=== PATIENT | male | born 1955 | race Caucasian/White ===

== ENCOUNTER 2019-01-02 19:45 | Emergency (ER) | payer OTHER ==
[~2019-01-02] VITALS: Ht 162.6 cm; Wt 79.4 kg
--- OUTSIDE RECORDS SUMMARY | ~2019-01-02 | XMS | Encounter Summary ---
Demographics + + + | Address | [address] | | | [place] [address] | + + + | Home Phone | | + + + | Preferred Language | Unknown | + + + | Marital Status | | + + + | Orthodox Affiliation | BIG | + + + | Race | White | + + + | Ethnic Group | Not or | + + + Author + + + | Author | [facility] | + + + | Organization | [facility] | + + + | Address | Unknown | + + + | Phone | Unavailable | + + + Support + + +---------+ + | Name | Relationship | Address | Phone | + + +---------+ + | Jade Cortez | ECON | Unknown | | + + +---------+ + Care Team Providers + +------+ + | Care Budder Name | Role | Phone | + +------+ + | Bonita Forbes MD | PCP | | + +------+ + Reason for Visit + + + | Reason | Comments | + + + | Visual field testing | | + + + Encounter Details +--------+ + + + + | Date | Type | Department | Care Team | Description | +--------+ + + + + | 06/28/ | Documentati | [facility] | Abel Aguilar MD | Visual field testing | | 2018 | on | [place] | [address] | | | | | Oculoplastics at | Blvd [place], [place] | | | | | [address] [place] [address] | [address] | | | | | [address] | [phone] | | | | | Mailcode: [facility] | | | | | | [place], [place] | | | | | | [address] | | | | | | [phone] | | | +--------+ + + + + Social History + +-------+ +--------+------+ | Tobacco Use | Types | Packs/Day | Years | Date | | | | | Used | | + +-------+ +--------+------+ | Current Every Day | | | | | | Smoker | | | | | + +-------+ +--------+------+ + +---+---+---+ | Smokeless Tobacco: | | | | | Never Used | | | | + +---+---+---+ + + + | Sex Assigned at | Date Recorded | | | | + + + | Not on file | | + + + + + + + | Job Start Date | Occupation | Industry | + + + + | Not on file | Not on file | Not on file | + + + + + + + + | Travel History | Travel Start | Travel End | + + + + + + | No recent travel history available. | + + documented as of this encounter Plan of Treatment Not on filedocumented as of this encounter Visit Diagnoses Not on filedocumented in this encounter"
--- OUTSIDE RECORDS SUMMARY | ~2019-01-02 | XMS | Encounter Summary ---
Demographics + + + | Address | [address] | | | [place] [address] | + + + | Home Phone | | + + + | Preferred Language | Unknown | + + + | Marital Status | | + + + | Quaker Affiliation | BIG | + + + | Race | White | + + + | Ethnic Group | Not or | + + + Author + + + | Author | [facility] | + + + | Organization | [facility] | + + + | Address | Unknown | + + + | Phone | Unavailable | + + + Support + + +---------+ + | Name | Relationship | Address | Phone | + + +---------+ + | Jade Cortez | ECON | Unknown | | + + +---------+ + Care Team Providers + +------+ + | Care Safety Coordinator Name | Role | Phone | + +------+ + | Bonita Forbes MD | PCP | | + +------+ + Encounter Details +--------+ + + + + | Date | Type | Department | Care Team | Description | +--------+ + + + + | 07/21/ | Telephone | [facility] | Abel Aguilar MD | | | 2018 | | [place] | [address] | | | | | Oculoplastics at | Blvd [place], [place] | | | | | [address] [facility] | [address] | | | | | [address] | [phone] | | | | | Mailcode: [facility] | | | | | | [place], [place] | | | | | | [address] | | | | | | [phone] | | | +--------+ + + + [...]
--- OUTSIDE RECORDS SUMMARY | ~2019-01-02 | XMS | Encounter Summary ---
Demographics + + + | Address | [address] | | | [place] [address] | + + + | Home Phone | | + + + | Preferred Language | Unknown | + + + | Marital Status | | + + + | Worship Affiliation | BIG | + + + [...] Team Providers + +------+ + | Care Technical Support Director Name | Role | Phone | + +------+ + | Bonita Forbes MD | PCP | | + +------+ + Encounter Details +--------+ + + + + | Date | Type | Department | Care Team | Description | +--------+ + + + + | 07/21/ | Telephone | [facility] | Abel Aguilar MD | | | 2018 | | [place] | [address] | | | | | Oculoplastics at | Blvd [place], [place] | | | | | [address] [facility] | [address] | | | | | [address] | [phone] | | | | | Mailcode: [facility] | | | | | | [place], [place] | | | | | | [address] | | | | | | [phone] | | | +--------+ + + + [...]
--- OUTSIDE RECORDS SUMMARY | ~2019-01-02 | XMS | Encounter Summary ---
Demographics + + + | Address | [address] | | | [place] [address] | + + + | Home Phone | | + + + | Preferred Language | Unknown | + + + | Marital Status | | + + + | Rastafari Affiliation | BIG | + + + | Race | White | + + + | Ethnic Group | Not or | + + + Author + + + | Author | [facility] | + + + | Organization | [facility] | + + + | Address | Unknown | + + + | Phone | Unavailable | + + + Support + + +---------+ + | Name | Relationship | Address | Phone | + + +---------+ + | Jade Cortez | ECON | Unknown | | + + +---------+ + Care Team Providers + +------+ + | Care Etcher Hand Name | Role | Phone | + +------+ + | Bonita Forbes MD | PCP | | + +------+ + Reason for Visit Office Visit - E/M Services (Routine) +--------+--------+ + + + + | Status | Reason | Specialty | Diagnoses / | Referred By | Referred To | | | | | Procedures | Contact | Contact | +--------+--------+ + + + + | Closed | | Ophthalmology | | Non-[facility] | Jeff, | | | | | | Epic Dept | MD Abel | | | | | | | [address] | | | | | | | [address] | | | | | | | [place] | | | | | | | [facility] [place] | | | | | | | [address] | | | | | | | Phone: | | | | | | | [phone] | | | | | | | Fax: | | | | | | | [phone] | +--------+--------+ + + + + Encounter Details +--------+---------+ + + + | Date | Type | Department | Care Team | Description | +--------+---------+ + + + | 06/17/ | Office | [facility] | Abel Aguilar MD | Brow ptosis (Primary | | 2018 | Visit | [place] | [address] | Dx); | | | | Oculoplastics at | [place], [place] | Dermatochalasis of | | | | [place] [address] | [address] | both upper eyelids | | | | [address] | [phone] | | | | | Mailcode: [facility] | | | | | | [facility] [place] | | | | | | [address] | | | | | | [phone] | | | +--------+---------+ + + + [...] documented as of this encounter Progress Notes Bonnie Paz - 06/17/2017 1:20 PM PDT07/19/17 [facility] Bilateral direct brow lift (tempora l) MAC Bilateral upper lid blepharoplasty Needs consent Gave LTP H&P w/ PCP Pt to bring CPAP on day of surgery bel Aguilar MD - 06/17/2017 1:20 PM PDTFormatting of this note might be differ ent from the original. Suman Cortez Fran is a 61 y.o. male. Referred by: Savage Burciaga Pain: No pain (0 of 0-10) Patient is referred for brow ptosis and dermatochalasis. He says he has progressively droop y eyelids that interfere with vision. This is bothersome all the time, interferes with the p eripheral vision, especially notices it when reading and driving, very bothersome. He had bi lateral upper lid blepharoplasty and ptosis repair in 2013 and felt like it was somewhat hel pful, but still bothered by his heavy upper lids. He notes he can see much better if he manu ally holds the saggy skin up. +PTSD, feels startled when things come up on his sides Denies myasthenia gravis symptoms, no current thyroid [...] patient is alert and oriented x 3. Visual Acuity: Vacc PH RE LE 20/25 20/25 Pupil Exam: PERRL No APD Motility: RE [...] skin resting on lashes and mechanical ptosis Adenopathy: None SLE: C/S quiet without masses OU K clear without infiltrate OU AC Deep and quiet OU Iris without neovascularization OU Lens NS OU Ta 15 OD 16 OS Posterior segment: M&N OU @ 13:20 Vitreous: clear, both eyes. Fundus: Optic disc: 0.3 cup/disc ratio, pink, flat, both eyes. Macula: no edema or exudates, both eyes. Vessels: no notching or hemorrhage, both eyes. Periphery: flat 360 without breaks or tears, both eyes. Basal Tear Secretion Test: RE 21, LE 21 External photos taken OU today. Photos demonstrate bilateral brow ptosis, upper lid dermat ochalasis Impression: 1. Bilateral brow ptosis, upper lid dermatochalasis, visually significant 2. S/p bilateral upper lid blepharoplasty and ptosis repair 2013 ([place]) Plan: Extensive discussion of options, patient wishes [...] I have reviewed and edited history and lead quality control technician documentation, and performed all elements to above examination documentation. Abel Aguilar M.D. Tissue Specialist Ophthalmic Facial Plastic and Reconstructive Surgery documented in this encounter Plan of Treatment Not on filedocumented as of this encounter Procedures + +--------+ + + + | Procedure Name | Priori | Date/Time | Associated Diagnosis | Comments | | | ty | | | | + +--------+ + + + | DE EXTERNAL PHOTOS | Routin | 06/17/2017 | Brow ptosis | | | | e | 1:57 PM | Dermatochalasis of | | | | | PDT | both upper eyelids | | + +--------+ + + + documented in this encounter Visit Diagnoses + + | Diagnosis | + + | Brow ptosis - Primary Unspecified ptosis of eyelid | + + | Dermatochalasis of both upper eyelids | + + documented in this encounter"
--- OUTSIDE RECORDS SUMMARY | ~2019-01-02 | XMS | Encounter Summary ---
Demographics + + + | Address | [address] | | | [place] [address] | + + + | Home Phone | | + + + | Preferred Language | Unknown | + + + | Marital Status | | + + + | Islam Affiliation | BIG | + + + | Race | White | + + + | Ethnic Group | Not or | + + + Author + + + | Author | [facility] | + + + | Organization | [facility] | + + + | Address | Unknown | + + + | Phone | Unavailable | + + + Support + + +---------+ + | Name | Relationship | Address | Phone | + + +---------+ + | Jade Cortez | ECON | Unknown | | + + +---------+ + Care Team Providers + +------+ + | Care Insurance Claims Clerk Name | Role | Phone | + +------+ + | Bonita Forbes MD | PCP | | + +------+ + Encounter Details +--------+---------+ + + + | Date | Type | Department | Care Team | Description | +--------+---------+ + + + | 06/28/ | Office | [facility] | Abel Aguilar MD | Dermatochalasis of | | 2018 | Visit | [place] | [address] | both upper eyelids | | | | Oculoplastics at | Blvd [facility] [place] | (Primary Dx); Brow | | | | [address] [facility] | [address] | ptosis | | | | [address] | [phone] | | | | | Mailcode: [facility] | | | | | | [place], [place] | | | | | | [address] | | | | | | [phone] | | | +--------+---------+ + + + [...] upper lid blepharoplasty and ptosis repair 2013 ([place]) Plan: Extensive discussion of options, patient wishes [...] I have reviewed and edited history and range technician documentation, and performed all elements to above examination documentation. Abel Aguilar M.D. Materials Buyer Ophthalmic Facial Plastic and Reconstructive Surgery documented in this encou nter Plan of Treatment Not on filedocumented as of this encounter Procedures + +--------+ + + + | Procedure Name | Priori | Date/Time | Associated Diagnosis | Comments | | | ty | | | | + +--------+ + + + | ME VISUAL FIELD | Routin | 06/28/2017 | [...]
--- OUTSIDE RECORDS SUMMARY | ~2019-01-02 | XMS | Clinical Summary ---
Demographics + + + | Address | [address] | | | [place] [address] | + + + | Home Phone [...] + + | Author | [facility] | + + + | Organization | [facility] | + + + | Address | Unknown | + + + | Phone | Unavailable | + + + Support + + +---------+ + | Name | Relationship | Address | Phone | + + +---------+ + | Jade Cortez | ECON | Unknown | | + + +---------+ + Care Team Providers + +------+ + | Care Template Inspector Name | Role | Phone | + +------+ + | Bonita Forbes MD | PCP | | + +------+ + Source Comments NADIA is fully live on both [facility] and [facility] Allergies No Known Allergies Medications [...] + + | Influenza (Flu) | | 12/11/2013, 03/26/2013, | | | vaccination (#1) | 9 | 01/01/2011 | | + + + + + | Pneumococcal | | 12/11/2013, 03/26/2013 | | | vaccination (3 of 3 | 9 | | | | - PPSV23) | [...] | + +--------+ +--------+ + +------+ | MARGARITA RICH PEBB | MARGARITA | [id number] | [birth year] | [phone] | [address] | PPO | | | OEBB | | 07-Pre | 7 | [id number] | | | | | | sent | | [place] | | | | | | | | [address] | | + +--------+ +--------+ + +------+ [...] | [address] | | | aislinn/Manuel | | 1956 | [phone] | [address] [place], [place] | | | [place] | | | [address] (Home) | [address] | + +--------+ +--------+ + +
--- OUTSIDE RECORDS SUMMARY | ~2019-01-02 | XMS | Encounter Summary ---
Demographics + + + | Address | [address] | | | [place] [address] | + + + | Home Phone | | + + + | Preferred Language | Unknown | + + + | Marital Status | | + + + | Uatsdin Affiliation | BIG | + + + | Race | White | + + + | Ethnic Group | Not or | + + + Author + + + | Author | [facility] | + + + | Organization | [facility] | + + + | Address | Unknown | + + + | Phone | Unavailable | + + + Support + + +---------+ + | Name | Relationship | Address | Phone | + + +---------+ + | Jade Cortez | ECON | Unknown | | + + +---------+ + Care Team Providers + +------+ + | Care Roll Forming Supervisor Name | Role | Phone | + [...] + + | 07/19/ | Hospital | [facility] | Abel Aguilar MD | | | 2018 | Encounter | [address] | [address] | | | | | [address] | Blvd [place], [place] | | | | | [facility] | [address] | | | | | [address] | [phone] | | | | | [place] [address] | | | | | | [phone] | | | +--------+ + + + [...] and holidays, call and as k the kicking machine operator to page the [facility] communications and signals supervisor. Return appointment date: Time: documented in this [...] | | 18 | 9 | | release(/EC) | | | | | | + [...] | 1 | 07/20/19 | | | [id number] | to the both eyelid | | [...] Abel Walls | | | Maxim Aguilar. Joy Loader Ophthalmic Facial Plastic and | | | [...] | | POC | | | TERRY RODRIGEUZ | | | | | | OF [...] [place] | [address] | [place], [place] | | | [facility] | [address] | [address] | | | TESTS | | | [...] intravenous, POSTPROCEDURE PRN, | | | Starting 07/19/17 at 1001, | | | Until 07/19/17 at 1628, | | | hypopnea | | + +---+ | | | + +---+ | oxyCODONE (immediate release) | | | (ROXICODONE) tablet 5-10 mg 5-10 | | | mg, oral, NEEDED, 1 dose, | | | Starting 07/19/17 at 1003, | | | Until 07/19/17 at 1628, | | | post-op severe pain | | + +---+ | | | + +---+ documented in this encounter
--- OUTSIDE RECORDS SUMMARY | ~2019-01-02 | XMS | Encounter Summary ---
Demographics + + + | Address | [address] | | | [place] [address] | + + + | Home Phone | | + + + | Preferred Language | Unknown | + + + | Marital Status | | + + + | Zoroastrianism Affiliation | BIG | + + + [...] Team Providers + +------+ + | Care Neonatal Social Worker Name | Role | Phone | + +------+ + | Bonita Forbes MD | PCP | | + +------+ + Encounter Details +--------+ + + + + | Date | Type | Department | Care Team | Description | +--------+ + + + + | 07/19/ | Procedure | [facility] INTRA OP LOC | | | | 2018 | Pass | [address] | | | | | | Mechelle ZUNIGA | | | | | | [facility], | | | | | | [place] [address] | | | +--------+ + + + [...]
--- OUTSIDE RECORDS SUMMARY | ~2019-01-02 | XMS | Encounter Summary ---
Demographics + + + | Address | [address] | | | [place] [address] | + + + | Home Phone | | + + + | Preferred Language | Unknown | + + + | Marital Status | | + + + | Hinduism Affiliation | BIG | + + + [...] Team Providers + +------+ + | Care Beauty Consultant Name | Role | Phone | [...] | | | 2018 | Event | [address] | [address] | | | | | Mechelle Vasquez [facility] | Mechelle Vasquez [place], | | | | | [facility], | [place] [address] | | | | | [place] [address] | [phone] | | | | | | | | +--------+ + + + + Anesthesia Record + + + + + | Procedure Name | Responsible | Anesthesia Start | Anesthesia Stop Time | | | Anesthesiologist | Time | | + + + + + | BILATERAL DIRECT | Yecenia MD Salvador | 07/19/17 0913 | 07/19/17 1000 | [...]
--- OUTSIDE RECORDS SUMMARY | ~2019-01-02 | XMS | Encounter Summary ---
Demographics + + + | Address | [address] | | | [place] [address] | + + + | Home Phone [...] + + | Author | [facility] | + + + | Organization | [facility] | + + + | Address | Unknown | + + + | Phone | Unavailable | + + + Support + + +---------+ + | Name | Relationship | Address | Phone | + + +---------+ + | Jade Cortez | ECON | Unknown | | + + +---------+ + Care Team Providers + +------+ + | Care Bulk Sealer Name | Role | Phone | + [...] testing | | 2018 | on | [place] | [address] | | | | | Oculoplastics at | Blvd [place], [place] | | | | | [address] | [address] | | | | | [address] | [phone] | | | | | Mailcode: [facility] | | | | | | [place], [place] | | | | | | [address] | | | | | | [phone] | | | +--------+ + + + [...]
--- OUTSIDE RECORDS SUMMARY | ~2019-01-02 | XMS | Encounter Summary ---
Demographics + + + | Address | [address] | | | [place] [address] | + + + | Home Phone | | + + + | Preferred Language | Unknown | + + + | Marital Status | | + + + | Jew Affiliation | BIG | + + + | Race | White | + + + | Ethnic Group | Not or | + + + Author + + + | Author | [facility] | + + + | Organization | [facility] | + + + | Address | Unknown | + + + | Phone | Unavailable | + + + Support + + +---------+ + | Name | Relationship | Address | Phone | + + +---------+ + | Jade Cortez | ECON | Unknown | | + + +---------+ + Care Team Providers + +------+ + | Care Cattyman Name | Role | Phone | + [...] [address] | | | | | | [place], [place] | | | | | | [address] | | | +--------+ + + + [...]
--- OUTSIDE RECORDS SUMMARY | ~2019-01-02 | XMS | Encounter Summary ---
Demographics + + + | Address | [address] | | | [place] [address] | + + + | Home Phone | | + + + | Preferred Language | Unknown | + + + | Marital Status | | + + + | Sabianist Affiliation | BIG | + + + | Race | White | + + + | Ethnic Group | Not or | + + + Author + + + | Author | [facility] | + + + | Organization | [facility] | + + + | Address | Unknown | + + + | Phone | Unavailable | + + + Support + + +---------+ + | Name | Relationship | Address | Phone | + + +---------+ + | Jade Cortez | ECON | Unknown | | + + +---------+ + Care Team Providers + +------+ + | Care Conference Assistant Name | Role | Phone | + +------+ + | Bonita Forbes MD | PCP | | + +------+ + Encounter Details +--------+---------+ + + + | Date | Type | Department | Care Team | Description | +--------+---------+ + + + | 06/28/ | Office | [facility] | Abel Aguilar MD | Dermatochalasis of | | 2018 | Visit | [place] | [address] | both upper eyelids | | | | Oculoplastics at | [address]vd [facility] [place] | (Primary Dx); Brow | | | | [address] [facility] | [address] | ptosis | | | | [address] | [phone] | | | | | Mailcode: [facility] | | | | | | [place], [place] | | | | | | [address] | | | | | | [phone] | | | +--------+---------+ + + + [...] upper lid blepharoplasty and ptosis repair 2013 ([place]) Plan: Extensive discussion of options, patient wishes [...] I have reviewed and edited history and maintenance service technician documentation, and performed all elements to above examination documentation. Abel Aguilar M.D. Casting Coordinator Ophthalmic Facial Plastic and Reconstructive Surgery documented in this encou nter Plan of Treatment Not on filedocumented as of this encounter Procedures + +--------+ + + + | Procedure Name | Priori | Date/Time | Associated Diagnosis | Comments | | | ty | | | | + +--------+ + + + | [place] VISUAL FIELD | Routin | 06/28/2017 | [...]
--- OUTSIDE RECORDS SUMMARY | ~2019-01-02 | XMS | Encounter Summary ---
Demographics + + + | Address | [address] | | | [place] [address] | + + + | Home Phone | | + + + | Preferred Language | Unknown | + + + | Marital Status | | + + + | Congregational Affiliation | BIG | + + + | Race | White | + + + | Ethnic Group | Not or | + + + Author + + + | Author | [facility] | + + + | Organization | [facility] | + + + | Address | Unknown | + + + | Phone | Unavailable | + + + Support + + +---------+ + | Name | Relationship | Address | Phone | + + +---------+ + | Jade Cortez | ECON | Unknown | | + + +---------+ + Care Team Providers + +------+ + | Care Line Crew Supervisor Name | Role | Phone | + +------+ + | Bonita Forbes MD | PCP | | + +------+ + Encounter Details +--------+---------+ + + + | Date | Type | Department | Care Team | Description | +--------+---------+ + + + | 07/29/ | Office | [facility] | Abel Aguilar MD | Dermatochalasis of | | 2018 | Visit | [place] | [address] | both upper eyelids | | | | Oculoplastics at | [address]d [place], [place] | (Primary Dx) | | | | [address] [facility] | [address] | | | | | [address] | [phone] | | | | | Mailcode: [facility] | | | | | | [place], [place] | | | | | | [address] | | | | | | [phone] | | | +--------+---------+ + + + [...] upper lid blepharoplasty and ptosis repair 2013 ([place]) Plan: Reviewed po instructions F/u at [facility] eye care RTC with va prn Physician attestation: I have reviewed and edited history and order entry technician documentation, and performed all elements to above examination documentation. Abel Aguilar M.D. Automation Test Developer Ophthalmic Facial Plastic and Reconstructive Surgery documented in this encounter Plan of Treatment Not on filedocumented as of this encounter Visit Diagnoses + + | Diagnosis | + + | Dermatochalasis of both upper eyelids - Primary | + + documented in this encounter"
--- OUTSIDE RECORDS SUMMARY | ~2019-01-02 | XMS | Encounter Summary ---
Demographics + + + | Address | [address] [address] | | | [place] [address] | + + + | Home Phone [...] Team Providers + +------+ + | Care Personal Computer Network Analyst Name | Role | Phone | + +------+ + | Bonita Forbes MD | PCP | | + +------+ + Encounter Details +--------+---------+ + + + | Date | Type | Department | Care Team | Description | +--------+---------+ + + + | 07/29/ | Office | [facility] | Abel Aguilar MD | Dermatochalasis of | | 2018 | Visit | [place] | [address] | both upper eyelids | | | | Oculoplastics at | vd [place], [place] | (Primary Dx) | | | | [facility] | [address] | | | | | [address] | [phone] | | | | | Mailcode: CEI | | | | | | [place], [place] | | | | | | [address] | | | | | | [phone] | | | +--------+---------+ + + + [...] upper lid blepharoplasty and ptosis repair 2013 ([place]) Plan: Reviewed po instructions F/u at [facility] RTC with sc prn Physician attestation: I have reviewed and edited history and flight readiness technician documentation, and performed all elements to above examination documentation. Abel Aguilar M.D. Oral Hygienist Ophthalmic Facial Plastic and Reconstructive Surgery documented in this encounter Plan of Treatment Not on filedocumented as of this encounter Visit Diagnoses + + | Diagnosis | + + | Dermatochalasis of both upper eyelids - Primary | + + documented in this encounter"
--- OUTSIDE RECORDS SUMMARY | ~2019-01-02 | XMS | Encounter Summary ---
Demographics + + + | Address | [address] [facility] | | | [place] [address] | + + + | Home Phone | | + + + | Preferred Language | Unknown | + + + | Marital Status | | + + + | Confucianist Affiliation | BIG | + + + | Race | White | + + + | Ethnic Group | Not or | + + + Author + + + | Author | [facility] | + + + | Organization | [facility] | + + + | Address | Unknown | + + + | Phone | Unavailable | + + + Support + + +---------+ + | Name | Relationship | Address | Phone | + + +---------+ + | Jade Cortez | ECON | Unknown | | + + +---------+ + Care Team Providers + +------+ + | Care Branch Associate Teller Name | Role | Phone | + [...] BILATERAL DIRECT | | 2018 | | [address] | [address] | [address] | | | | Mechelle ZUNIGA | [address] [place], [place] | (TEMPORAL); | | | | [facility], | [address] | BILATERAL UPPER LID | | | | [place] [address] | [phone] | BLEPHAROPLASTY (C02 | | | | [...] + documented in this encounter Discharge Instructions Vera Corado RN - 07/19/2017Home Care after Eyelid Surgery [...] and holidays, call and as k the lithoduplicator operator to page the Eye Doctor documentation lead. Return appointment date: Time: documented in this [...] | 1 | 07/20/19 | | | pfxgsfko-sfvjykkij-g | to the both eyelid | | [...] Abel Walls | | | Maxim Aguilar. Cma Or Lpn Ophthalmic Facial Plastic and | | | [...] [facility] | [address] | [place], [place] | | | JENNIFER POINT OF CARE | [address] | [address] | | | TESTS | | | [...] | 1 strip | | | | uzntecgz-tfsfthtpg-ipagjsyvbggbr | | 18 9:38 | | | [...] 18 9:38 | | | | | 1%-1:[id number] - bupivacaine 0.5% | | AM PDT [...] proparacaine (OPHTHAINE) 0.5 % | Given | 05/11/20 | 1 drop | | | | ophthalmic drops INTRAPROCEDURE | | 18 9:38 | | | | | PRN, Starting 07/19/17 at | | AM PDT | | | | | 0938, Until Sat07/19/17 at 0956 | | | | | | + +-------+ +--------+---+---+ +---+---+ | | | +---+---+ documented in this encounter
--- OUTSIDE RECORDS SUMMARY | ~2019-01-02 | XMS | Clinical Summary ---
Demographics + + + | Address | [address] | | | [place] [address] | + + + | Home Phone [...] + + | Author | [facility] | + + + | Organization | [facility] | + + + | Address | Unknown | + + + | Phone | Unavailable | + + + Support + + +---------+ + | Name | Relationship | Address | Phone | + + +---------+ + | Jade Cortez | ECON | Unknown | | + + +---------+ + Care Team Providers + +------+ + | Care Biologics Specialist Name | Role | Phone | + +------+ + | Bonita Forbes MD | PCP | | + +------+ + Source Comments NADIA is fully live on both [facility] Ambulatory and [facility] InPatient.[facility]ly [facility] Allergies No Known Allergies Medications [...] + +--------+ +--------+ + +------+ | MARGARITA RIHC PEBB | MARGARITA | [phone] | 09/09/19 | [phone] | [address] | PPO | | | [facility]E[place] | | 07-Pre | 7 | [id number] | | | | | | sent | | [place] | | | | | | | | [address] | | + +--------+ +--------+ + +------+ [...] | | aislinn/Manuel | | 1956 | [phone] | [address] [place], [place] | | | johnathon | | | [address] (Home) | [address] | + +--------+ +--------+ + +
--- OUTSIDE RECORDS SUMMARY | ~2019-01-02 | XMS | Encounter Summary ---
Demographics + + + | Address | [address] [address] | | | [place] [address] | + + + | [...] Team Providers + +------+ + | Care Atg Java Developer Name | Role | Phone | [...] [address] | | | | | | [place], [place] | | | | | | [address] | | | +--------+ + + + [...]
--- OUTSIDE RECORDS SUMMARY | ~2019-01-02 | XMS | Encounter Summary ---
Demographics + + + | Address | [address] [facility] | | | [place] [address] | + + + | Home Phone [...] Team Providers + +------+ + | Care Expediter Service Order Name | Role | Phone | + [...] Rd | | | | | | [place], [place] | | | | | | [address] | | | +--------+ + + + [...]
--- OUTSIDE RECORDS SUMMARY | ~2019-01-02 | XMS | Encounter Summary ---
Demographics + + + | Address | [address] [facility] | | | [place] [address] | + + + | Home Phone [...] Team Providers + +------+ + | Care Web Worker Name | Role | Phone | [...] Rd | | | | | | [place], [place] | | | | | | [address] | | | +--------+ + + + [...]
--- OUTSIDE RECORDS SUMMARY | ~2019-01-02 | XMS | Encounter Summary ---
Demographics + + + | Address | [address] [facility] | | | [place] [address] | + + + | Home Phone [...] Team Providers + +------+ + | Care Gardening Instructor Name | Role | Phone | [...] Pre-Admission | | 2018 | Orders | [place] | [address] | | | | | Oculoplastics at | Blvd [place], [place] | | | | | Ralph Cabral | [address] | | | | | [address] [facility] | [phone] | | | | | Mailcode: ESE | | | | | | [place], [place] | | | | | | [address] | | | | | | [phone] | | | +--------+ + + + [...]
--- OUTSIDE RECORDS SUMMARY | ~2019-01-02 | XMS | Encounter Summary ---
Demographics + + + | Address | [address] [facility] | | | [place] [address] | + + + | Home Phone [...] Team Providers + +------+ + | Care Distillery Supervisor Name | Role | Phone | [...] | | | | | | | [address] | | | | | | | [address] | | | | | | | Jose | | | | | | | [facility] [place] | | | | | | | [address] | | | | | | | Phone: | | | | | | | [phone] | | | | | | | Fax: | | | | | | | [phone] | +--------+--------+ + + + + Encounter Details +--------+---------+ + + + | Date | Type | Department | Care Team | Description | +--------+---------+ + + + | 06/17/ | Office | [facility] | Abel Aguilar MD | Brow ptosis (Primary | | 2018 | Visit | [place] | [address] | Dx); | | | | Oculoplastics at | [place], [place] | Dermatochalasis of | | | | [place] [address] | [address] | both upper eyelids | | | | [address] | [phone] | | | | | Mailcode: [facility] | | | | | | [facility] [place] | | | | | | [address] | | | | | | [phone] | | | +--------+---------+ + + + [...] upper lid blepharoplasty and ptosis repair 2013 ([place]) Plan: Extensive discussion of options, patient wishes [...] I have reviewed and edited history and solar fabrication technician documentation, and performed all elements to above examination documentation. Abel Aguilar M.D. Business Office Manager Ophthalmic Facial Plastic and Reconstructive Surgery documented in this encounter Plan of Treatment Not on filedocumented as of this encounter Procedures + +--------+ + + + | Procedure Name | Priori | Date/Time | Associated Diagnosis | Comments | | | ty | | | | + +--------+ + + + | LA EXTERNAL PHOTOS | Routin | 06/17/2017 | [...]
--- OUTSIDE RECORDS SUMMARY | ~2019-01-02 | XMS | Encounter Summary ---
Demographics + + + | Address | [address] [facility] [address] [facility] [facility] | | | [place] [address] | + + + | Home Phone | | + + + | Preferred Language | Unknown | + + + | Marital Status | | + + + | Congregational Affiliation | BIG | + + + | Race | White | + + + | Ethnic Group | Not or | + + + Author + + + | Author | [facility] | + + + | Organization | [facility] | + + + | Address | Unknown | + + + | Phone | Unavailable | + + + Support + + +---------+ + | Name | Relationship | Address | Phone | + + +---------+ + | Jade Cortez | ECON | Unknown | | + + +---------+ + Care Team Providers + +------+ + | Care Iron Piler Name | Role | Phone | + [...] | | | | | Mechelle Vasquez [facility] | Mechelle Vasquez [place], | | | | | [facility] [place], | [place] [address] | | | | | [place] [address] | [phone] | | | | | | | [...]
--- OUTSIDE RECORDS SUMMARY | ~2019-01-02 | XMS | Encounter Summary ---
Demographics + + + | Address | [address] [facility] | | | [place] [address] | + + + | Home Phone [...] Team Providers + +------+ + | Care Fish Protector Name | Role | Phone | + [...] [address] | | | | | | [facility], | | | | | | [place] [address] | | | +--------+ + + + [...]
--- OUTSIDE RECORDS SUMMARY | ~2019-01-02 | XMS | Encounter Summary ---
Demographics + + + | Address | [address] [facility] | | | [place] [address] | + + + | Home Phone [...] Team Providers + +------+ + | Care Matte Cutter Name | Role | Phone | + [...] | | | Mechelle ZUNIGA | [address] [place], [place] | (TEMPORAL); | | | | [facility], | [address] | BILATERAL UPPER LID | | | | [place] [address] | [phone] | BLEPHAROPLASTY (C02 | | | | [...] and holidays, call and as k the white sugar pan tank operator to page the Eye Doctor aws consultant. Return appointment date: Time: documented in [...] | 1 | 07/20/19 | | | erszravv-korcpomll-d | to the both eyelid | | [...] Abel Walls | | | Maxim Aguilar. Taxicab Coordinator Ophthalmic Facial Plastic and | | | [...] [place] | [address] | [place], [place] | | | JENNIFER POINT OF CARE | [address] | [address] | | | TESTS | | | [...] | 1 strip | | | | doxlbamc-kypalfgkb-lxyckqiaiaxyy | | 18 9:38 | | | [...] 18 9:38 | | | | | 1%-1:[id number] - bupivacaine 0.5% | | AM PDT [...]
--- OUTSIDE RECORDS SUMMARY | ~2019-01-02 | XMS | Encounter Summary ---
Demographics + + + | Address | [address] [facility] | | | [place] [address] | + + + | Home Phone [...] Team Providers + +------+ + | Care Photolettering Machine Operator Name | Role | Phone [...] + + | 07/19/ | Hospital | [facility] | Abel Aguilar MD | | | 2018 | Encounter | [address] | [address] | | | | | [address] | Blvd [place], [place] | | | | | [facility] | [address] | | | | | [address] | [phone] | | | | | [place] [address] | | | | | | [phone] | | | +--------+ + + + [...] and holidays, call and as k the erco machine operator to page the Eye Doctor interventional radiology tech. Return appointment date: Time: documented in this [...] | 1 | 07/20/19 | | | vrbtbmlx-wtduqtbgs-l | to the both eyelid | | [...] Abel Walls | | | Maxim Aguilar. Tire Center Supervisor Ophthalmic Facial Plastic and | | | [...] [place] | [address] | [place], [place] | | | JENNIFER POINT OF CARE | [address] | [address] | | | TESTS | | | [...]
--- OUTSIDE RECORDS SUMMARY | ~2019-01-02 | XMS | Encounter Summary ---
Demographics + + + | Address | [address] [facility] | | | [place] [address] | + + + | Home Phone [...] + + + | Author | [facility] | + + + | Organization | [facility] | + + + | Address | Unknown | + + + | Phone | Unavailable | + + + Support + + +---------+ + | Name | Relationship | Address | Phone | + + +---------+ + | Jade Cortez | ECON | Unknown | | + + +---------+ + Care Team Providers + +------+ + | Care Daycare Worker Name | Role | Phone | [...] Pre-Admission | | 2018 | Orders | [place] | [address] | | | | | Oculoplastics at | Blvd [place], [place] | | | | | Ralph Cabral | [address] | | | | | [address] [facility] | [phone] | | | | | Mailcode: ESE | | | | | | [place], [place] | | | | | | [address] | | | | | | [phone] | | | +--------+ + + + [...]
[~2019-01-02 19:45] MED LIST: BUSPIRONE HCL30 MG PO; DESVENLAFAXINE50 M3 PO; DISULFIRAM250 MG PO; LEVALBUTEROL TA15 GM INH; METFORMIN HCL1000 MG PO; PANTOPRAZOLE SO40 MG PO; QUETIAPINE FUMA25 MG PO; TESTOSTERO200 MG/1 M IM
--- OUTSIDE RECORDS SUMMARY | 2019-01-02 19:50 | XMS ---
PreManage Notification: [facility] Security Aquarist Events No recent Security Events currently on file CRITERIA MET - [facility] - Has Care Guidelines - [facility] - 2 Visits in 30 Days CARE PROVIDERS There are no care providers on record at this time. Guidelines Source: [email or web address] - [place] Guidelines Date: 01/02/2019 Care Coordination: Mental health services provided by [email or web address].\T\nbsp; Please contact [email or web address] with mental health concerns.\T\nbsp; Suzy/Isidorocruzito Mcdanielsierra t[place]son: [phone]\T\ nbsp; Hilda: [phone]. E.D. VISIT COUNT (12 MO.) 2 [facility]. TOTAL 2 NOTE: Visits indicate total known visits. 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
== END 2019-01-02 23:35 | disposition home or self-care (01) ==
LOC: ED 19:45
PROC: 0HQ1XZZ Repair Face Skin, External Approach (ICD-10-PCS; principal; 2019-01-02)
DX: S01.81XA Laceration without foreign body of other part of head, initial encounter (principal); S00.93XA Contusion of unspecified part of head, initial encounter; E11.9 Type 2 diabetes mellitus without complications; F17.200 Nicotine dependence, unspecified, uncomplicated; F32.9 Major depressive disorder, single episode, unspecified; F41.9 Anxiety disorder, unspecified; Z88.8 Allergy status to other drugs, medicaments and biological substances; Z79.84 Long term (current) use of oral hypoglycemic drugs; Z79.899 Other long term (current) drug therapy; Y04.0XXA Assault by unarmed brawl or fight, initial encounter
CPT/HCPCS: 12011; 90471; 90715; 99283-25

== ENCOUNTER 2019-09-05 00:57 | Observation (INO) | payer OTHER ==
[~2019-09-05] VITALS: Ht 162.6 cm; Wt 88.4 kg
--- OUTSIDE RECORDS SUMMARY | ~2019-09-05 | XMS | Encounter Summary ---
Demographics + + + | Address | [address] | | | [place] [address] | + + + | Home Phone | | + + + | Preferred Language | Unknown | + + + | Marital Status | | + + + | Temple Affiliation | BIG | + + + | Race | White | + + + | Ethnic Group | Not or | + + + Author + + + | Author | [facility] | + + + | Organization | [facility] | + + + | Address | Unknown | + + + | Phone | Unavailable | + + + Support + + +---------+ + | Name | Relationship | Address | Phone | + + +---------+ + | Jade Cortez | ECON | Unknown | | + + +---------+ + Care Team Providers + +------+ + | Care Inspector Packager Name | Role | Phone | + [...] [address] | | | | | | [place], [place] | | | | | | [address] | | | +--------+ + + + [...]
--- OUTSIDE RECORDS SUMMARY | ~2019-09-05 | XMS | Encounter Summary ---
Demographics + + + | Address | [address] | | | [place] [address] | + + + | Home Phone | | + + + | Preferred Language | Unknown | + + + | Marital Status | | + + + | Latter-Day Affiliation | BIG | + + + | Race | White | + + + | Ethnic Group | Not or | + + + Author + + + | Author | [facility] | + + + | Organization | [facility] | + + + | Address | Unknown | + + + | Phone | Unavailable | + + + Support + + +---------+ + | Name | Relationship | Address | Phone | + + +---------+ + | Jade Cortez | ECON | Unknown | | + + +---------+ + Care Team Providers + +------+ + | Care Violin Restorer Name | Role | Phone | + +------+ + | Bonita Forbes MD | PCP | | + +------+ + Encounter Details +--------+---------+ + + + | Date | Type | Department | Care Team | Description | +--------+---------+ + + + | 06/28/ | Office | [facility] | Abel Aguilar MD | Dermatochalasis of | | 2018 | Visit | [place] | [address] | both upper eyelids | | | | Oculoplastics at | [address]vd [place], [place] | (Primary Dx); Brow | | | | [place] [address] | [address] | ptosis | | | | [address] | [phone] | | | | | Eye [place] | | | | | | [facility] floor | | | | | | [place] [address] | | | | | | [phone] | | | +--------+---------+ + + + [...] encounter Progress Notes Abel Aguilar MD - 06/28/2017 10:40 AM PDTFormatting of this note might be different from t charleen original. Suman Cortez . is a 61 y.o. male. Referred by: Savage Burciaga Pain: No pain (0 of 0-10) Patient returns to clinic today for visual field testing. He is scheduled for bilateral dir ect brow lift and bilateral upper lid blepharoplasty with me on 07/19/17 and his insurance re quires visual field testing in order to review for pre-authorization. He continues to be bothered by his progressively droopy eyelids that interfere with vision, he is excited about surgery to improve his vision Denies myasthenia gravis symptoms, no current thyroid issues. Review of systems: Medications, allergies, medical, surgical and family history were review ed by me at this visit utilizing a written patient history form. Pertinent positives noted in history. All else unless noted was negative (fever, wt. change, ENT, cardiovascular, respiratory, GI , urinary, skin, muscle, bones, joints, neurologic, behavioral,endocrine, psychiatric, bleed ing/blood disorders, AIDS/HIV, cancer or tumors, arthritis) Pertinent positives in the family history noted in history. All else unless noted was negative (endocrine, cancer or tumors, cardiovascular, cataracts, retina, strabismus, amblyopia, low vision or blindness, refractive error, glaucoma, color o r night blindness or unexplained vision loss). Exam: The patient is alert and oriented x 3. Pupil Exam: PERRL No APD Motility: RE LE 0 0 0 0 0 0 0 0 Lid Measurements: RE (mm) LE (mm) Sup SS Crease HT VPF 6 6 LF 15 15 MRDI 1 1 Inf SS Lag 0 0 The MRD1 improves when the weight of the brow ptosis and dermatochalasis is manually eleva jaky. Facial Exam: Prominent globes with strong negative midface vector Brow ptosis compensated by frontalis effort, +temporal hooding Bilateral upper lid dermatochalasis with skin resting on lashes and mechanical ptosis Visual field testing today with Goldmann III4e untaped and taped shows an improvement from 10 degrees above the horizon to 48 degrees OD and 11 degrees to 50 degrees OS. Impression: 1. Bilateral brow ptosis, upper lid dermatochalasis, visually significant 2. S/p bilateral upper lid blepharoplasty and ptosis repair 2013 ([place]) Plan: Extensive discussion of options, patient wishes to proceed as follows: Bilateral direct brow lift (temporal) Bilateral upper lid blepharoplasty MAC The procedure, alternatives and risks were discussed with the patient, including potential need for additional surgery, bleeding, infection, vision loss including blindness, pain, ner ve damage, and asymmetry. Questions were answered and patient wishes to proceed with surgery . No anticoagulants including aspirin, NSAIDS, vitamin E, HERBS, etc. perioperatively. Encour aged patient to check with PCP regarding prescription anticoagulant use prior to surgery. We discussed that if the patient needs to stay on anticoagulants perioperatively, the patient understands and accepts the increased risk of complications. Physician attestation: I have reviewed and edited history and photographic equipment technician documentation, and performed all elements to above examination documentation. Abel Aguilar M.D. Neurological Surgery Teacher Ophthalmic Facial Plastic and Reconstructive Surgery documented in this encou nter Plan of Treatment Not on filedocumented as of this encounter Procedures + +--------+ + + + | Procedure Name | Priori | Date/Time | Associated Diagnosis | Comments | | | ty | | | | + +--------+ + + + | [facility] VISUAL FIELD | Routin | 06/28/2017 | Dermatochalasis of | | | EXAM, LIMITED | e | 10:51 AM | both upper eyelids | | | | | PDT | Brow ptosis | | + +--------+ + + + documented in this encounter Visit Diagnoses + + | Diagnosis | + + | Dermatochalasis of both upper eyelids - Primary | + + | Brow ptosis Unspecified ptosis of eyelid | + + documented in this encounter"
--- OUTSIDE RECORDS SUMMARY | ~2019-09-05 | XMS | Clinical Summary ---
Demographics + + + | Address | [address] | | | [place] [address] | + + + | Home Phone | | + + + | Preferred Language | Unknown | + + + | Marital Status | | + + + | Latter Day Affiliation | BIG | + + + | Race | White | + + + | Ethnic Group | Not or | + + + Author + + + | Author | [facility] | + + + | Organization | [facility] | + + + | Address | Unknown | + + + | Phone | Unavailable | + + + Support + + +---------+ + | Name | Relationship | Address | Phone | + + +---------+ + | Jade Cortez | ECON | Unknown | | + + +---------+ + Care Team Providers + +------+ + | Care Local Telephone Operator Name | Role | Phone | + +------+ + | Bonita Forbes MD | PCP | | + +------+ + Source Comments NADIA is fully live on both [facility] and [facility] InPatient.[facility] Allergies No Known Allergies Medications + + + +---------+------+------+-------+ | Medication | Sig | Dispensed | Refills | Star | End | Statu | | | | | | t | Date | s | | | | | | Date | | | + + + +---------+------+------+-------+ | | Take 1 tablet by | 10 | 0 | 05/1 | | Activ | | HYDROcodone-acetamin | mouth every four | tablet | | 1/20 | | e | | ophen 5-325 mg oral | hours as needed for | | | 18 | | | | tablet | severe pain. 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 | + + Last Filed Vital Signs + + + [...] | | + + + + + Plan of Treatment + + + + + | Health Maintenance | Due Date | Last Done | Comments | + + + + + | Pneumococcal | | | | | vaccination (1 of 1 | 4 | | | | - PPSV23) | | | | + + + + + | Influenza (Flu) | | | | | vaccination (#1) | 9 | | | + + + + + Results Not on filefrom Last 3 Months Insurance + +--------+ +--------+ + +------+ | Payer | Benefi | Subscriber | Effect | Phone | Address | Type | | | t Plan | ID | yissel | | | | | | / | | Dates | | | | | | Group | | | | | | + +--------+ +--------+ + +------+ | AVILA RAIZABB PE[employer] | MARGAR[place] | [id number] | 09/09/19 | [phone] | [address] | PPO | | | [employer] | | 07-Pre | 7 | [id number] | | | | | | sent | | [place] | | | | | | | | [address] | | + +--------+ +--------+ + +------+ + +--------+ +--------+ + + | Guarantor Name | Accoun | Relation to | Date | Phone | Billing Address | | | t Type | Patient | of | | | | | | | | | | + +--------+ +--------+ + + | Suman Cortez Sr. | Person | Self | [birth year] | [address] | | | al/Fam | | 1955 | [phone] | [address] | | | [place] | | | [address] ([place]) | [phone] | + +--------+ +--------+ + +
--- OUTSIDE RECORDS SUMMARY | ~2019-09-05 | XMS | Encounter Summary ---
Demographics + + + | Address | [address] | | | [place] [address] | + + + | Home Phone | | + + + | Preferred Language | Unknown | + + + | Marital Status | | + + + | Hindu Affiliation | BIG | + + + [...] Team Providers + +------+ + | Care Door To Door Sales Representative Name | Role | Phone | + [...] | | | | | | | [address] | | | | | | [address] | | | | | | | [place] | | | | | | | [facility] [place] | | | | | | | [address] | | | | | | | Phone: | | | | | | | [phone] | | | | | | | Fax: | | | | | | | [phone] | +--------+--------+ + + + + Encounter Details +--------+---------+ + + + | Date | Type | Department | Care Team | Description | +--------+---------+ + + + | 06/17/ | Office | [facility] | Abel Aguilar MD | Brow ptosis (Primary | | 2018 | Visit | [place] | [address] | Dx); | | | | Oculoplastics at | [facility] [place] | Dermatochalasis of | | | | [facility] [address] | [address] | both upper eyelids | | | | [address] | [phone] | | | | | Eye [place] | | | | | | [facility], [address] [place] [address] | | | | | | [place] [address] | | | | | | [phone] | | | +--------+---------+ + + + [...] + documented as of this encounter Progress Bonnie Casiano - 06/17/2017 1:20 PM PDT07/19/17 [facility] Bilateral direct brow lift (tempora l) MAC Bilateral upper lid blepharoplasty Needs consent Gave LTP H&P w/ PCP Pt to bring CPAP on day of surgery bel Aguilar MD - 06/17/2017 1:20 PM PDTFormatting of this note might be differ ent from the original. Suman Cortez . is a 61 [...] upper lid blepharoplasty and ptosis repair 2013 ([place]) Plan: Extensive discussion of options, patient wishes [...] I have reviewed and edited history and low voltage technician documentation, and performed all elements to above examination documentation. Abel Aguilar M.D. Pulpwood Dealer Ophthalmic Facial Plastic and Reconstructive Surgery documented in this encounter Plan of Treatment Not on filedocumented as of this encounter Procedures + +--------+ + + + | Procedure Name | Priori | Date/Time | Associated Diagnosis | Comments | | | ty | | | | + +--------+ + + + | NE EXTERNAL PHOTOS | Routin | 06/17/2017 | [...]
--- OUTSIDE RECORDS SUMMARY | ~2019-09-05 | XMS | Encounter Summary ---
Demographics + + + | Address | [address] | | | [place] [address] | + + + | Home Phone | | + + + | Preferred Language | Unknown | + + + | Marital Status | | + + + | Holiness Affiliation | BIG | + + + [...] Team Providers + +------+ + | Care Diet Consultant Name | Role | Phone | + +------+ + | Bonita Forbes MD | PCP | | + +------+ + Encounter Details +--------+ + + + + | Date | Type | Department | Care Team | Description | +--------+ + + + + | 07/21/ | Telephone | [facility] | Abel Aguilar MD | | | 2018 | | [place] | [address] | | | | | Oculoplastics at | vd [place], [place] | | | | | [address] | [address] | | | | | [address] | [phone] | | | | | Eye [place] | | | | | | [address] | | | | | | [place] [address] | | | | | | [phone] | | | +--------+ + + + [...]
--- OUTSIDE RECORDS SUMMARY | ~2019-09-05 | XMS | Encounter Summary ---
Demographics + + + | Address | [address] | | | [place] [address] | + + + | Home Phone | | + + + | Preferred Language | Unknown | + + + | Marital Status | | + + + | Buddhist Affiliation | BIG | + + + | Race | White | + + + | Ethnic Group | Not or | + + + Author + + + | Author | [facility] | + + + | Organization | [facility] | + + + | Address | Unknown | + + + | Phone | Unavailable | + + + Support + + +---------+ + | Name | Relationship | Address | Phone | + + +---------+ + | Jade Cortez | ECON | Unknown | | + + +---------+ + Care Team Providers + +------+ + | Care Client Services Analyst Name | Role | Phone | + [...] | 2018 | Encounter | [facility] | [address] | | | | | Dr [facility] Eye | [place], [place] | | | | | [place] | [address] | | | | | [place], [place] | [phone] | | | | | [address] | [...] and holidays, call and as k the production broaching machine operator to page the Eye Doctor program coordinator executive education. Return appointment date: Time: documented in this [...] | 1 | 07/20/19 | | | [id number] | to the both eyelid | | [...] Abel Walls | | | Maxim Aguilar. Produce Weigher Ophthalmic Facial Plastic and | | | [...] [place] | [address] | [place], [place] | | | TERRY RODRIGUEZ OF CARE | [address] | [address] | | | TESTS | | | [...]
--- OUTSIDE RECORDS SUMMARY | ~2019-09-05 | XMS | Encounter Summary ---
Demographics + + + | Address | [address] | | | [place] [address] | + + + | Home Phone [...] + + + | Author | [facility] | + + + | Organization | [facility] | + + + | Address | Unknown | + + + | Phone | Unavailable | + + + Support + + +---------+ + | Name | Relationship | Address | Phone | + + +---------+ + | Jade Cortez | ECON | Unknown | | + + +---------+ + Care Team Providers + +------+ + | Care Academic Hospitalist Name | Role | Phone | + +------+ + | Bonita Forbes MD | PCP | | + +------+ + Encounter Details +--------+ + + + + | Date | Type | Department | Care Team | Description | +--------+ + + + + | 07/21/ | Telephone | [facility] | Abel Aguilar MD | | | 2018 | | [place] | [address] | | | | | Oculoplastics at | vd [place], [place] | | | | | [address] | [address] | | | | | [address] | [phone] | | | | | Eye [place] | | | | | | [address] | | | | | | [place] [address] | | | | | | [phone] | | | +--------+ + + + [...]
--- OUTSIDE RECORDS SUMMARY | ~2019-09-05 | XMS | Encounter Summary ---
Demographics + + + | Address | [address] | | | [place] [address] | + + + | Home Phone | | + + + | Preferred Language | Unknown | + + + | Marital Status | | + + + | Alevism Affiliation | BIG | + + + | Race | White | + + + | Ethnic Group | Not or | + + + Author + + + | Author | [facility] | + + + | Organization | [facility] | + + + | Address | Unknown | + + + | Phone | Unavailable | + + + Support + + +---------+ + | Name | Relationship | Address | Phone | + + +---------+ + | Jade Cortez | ECON | Unknown | | + + +---------+ + Care Team Providers + +------+ + | Care Test Automation Architect Name | Role | Phone | + +------+ + | Bonita Forbes MD | PCP | | + +------+ + Encounter Details +--------+---------+ + + + | Date | Type | Department | Care Team | Description | +--------+---------+ + + + | 06/28/ | Office | [facility] | Abel Aguilar MD | Dermatochalasis of | | 2018 | Visit | [place] | [address] | both upper eyelids | | | | Oculoplastics at | Blvd [place], [place] | (Primary Dx); Brow | | | | [place] [address] | [address] | ptosis | | | | [address] | [phone] | | | | | Eye [place] | | | | | | [facility], [facility] floor | | | | | | [place] [address] | | | | | | [phone] | | | +--------+---------+ + + + [...] upper lid blepharoplasty and ptosis repair 2013 ([place]) Plan: Extensive discussion of options, patient wishes [...] I have reviewed and edited history and quality assurance lab technician documentation, and performed all elements to above examination documentation. Abel Aguilar M.D. Development Geologist Ophthalmic Facial Plastic and Reconstructive Surgery documented in this encou nter Plan of Treatment Not on filedocumented as of this encounter Procedures + +--------+ + + + | Procedure Name | Priori | Date/Time | Associated Diagnosis | Comments | | | ty | | | | + +--------+ + + + | [place] VISUAL FIELD | Routin | 06/28/2017 | [...]
--- OUTSIDE RECORDS SUMMARY | ~2019-09-05 | XMS | Encounter Summary ---
Demographics + + + | Address | [address] | | | [place] [address] | + + + | Home Phone [...] Team Providers + +------+ + | Care Spindle Sander Name | Role | Phone | + [...] [address] | | | | | | [place], [place] | | | | | | [address] | | | +--------+ + + + [...]
--- OUTSIDE RECORDS SUMMARY | ~2019-09-05 | XMS | Encounter Summary ---
Demographics + + + | Address | [address] | | | [place] [address] | + + + | Home Phone | | + + + | Preferred Language | Unknown | + + + | Marital Status | | + + + | Bahai Affiliation | BIG | + + + | Race | White | + + + | Ethnic Group | Not or | + + + Author + + + | Author | [facility] | + + + | Organization | [facility] | + + + | Address | Unknown | + + + | Phone | Unavailable | + + + Support + + +---------+ + | Name | Relationship | Address | Phone | + + +---------+ + | Jade Cortez | ECON | Unknown | | + + +---------+ + Care Team Providers + +------+ + | Care Manager Equipment Name | Role | Phone | + [...] [place] | | | | | [facility] | [address] [place], | | | | | [place] [address] | [place] [address] | | | | | | [phone] | | | | | | | [...]
--- OUTSIDE RECORDS SUMMARY | ~2019-09-05 | XMS | Encounter Summary ---
Demographics + + + | Address | [address] | | | [place] [address] | + + + | Home Phone | | + + + | Preferred Language | Unknown | + + + | Marital Status | | + + + | Confucianism Affiliation | BIG | + + + | Race | White | + + + | Ethnic Group | Not or | + + + Author + + + | Author | [facility] | + + + | Organization | [facility] | + + + | Address | Unknown | + + + | Phone | Unavailable | + + + Support + + +---------+ + | Name | Relationship | Address | Phone | + + +---------+ + | Jade Cortez | ECON | Unknown | | + + +---------+ + Care Team Providers + +------+ + | Care Manager Programming Name | Role | Phone | + [...] Pre-Admission | | 2018 | Orders | [place] | [address] | | | | | Oculoplastics at | Blvd [place], [place] | | | | | [place] [address] | [address] | | | | | [address] | [phone] | | | | | Eye [place] | | | | | | [facility], 5th floor | | | | | | [place] [address] | | | | | | [phone] | | | +--------+ + + + [...]
--- OUTSIDE RECORDS SUMMARY | ~2019-09-05 | XMS | Encounter Summary ---
Demographics + + + | Address | [address] | | | [place] [address] | + + + | Home Phone | | + + + | Preferred Language | Unknown | + + + | Marital Status | | + + + | Catholic Affiliation | BIG | + + + | Race | White | + + + | Ethnic Group | Not or | + + + Author + + + | Author | [facility] | + + + | Organization | [facility] | + + + | Address | Unknown | + + + | Phone | Unavailable | + + + Support + + +---------+ + | Name | Relationship | Address | Phone | + + +---------+ + | Jade Cortez | ECON | Unknown | | + + +---------+ + Care Team Providers + +------+ + | Care Waiter/Waitress Captain Name | Role | Phone | + [...] testing | | 2018 | on | [place] | [address] | | | | | Oculoplastics at | [place] | | | | | [facility] [address] | [address] | | | | | [address] | [phone] | | | | | Eye [place] | | | | | | [facility], [facility] floor | | | | | | [place] [address] | | | | | | [phone] | | | +--------+ + + + [...]
--- OUTSIDE RECORDS SUMMARY | ~2019-09-05 | XMS | Encounter Summary ---
Demographics + + + | Address | [address] | | | [place] [address] | + + + | Home Phone | | + + + | Preferred Language | Unknown | + + + | Marital Status | | + + + | Episcopal Affiliation | BIG | + + + [...] Team Providers + +------+ + | Care Green Ware Caster Name | Role | Phone | + +------+ + | Bonita Forbes MD | PCP | | + +------+ + Encounter Details +--------+ + + + + | Date | Type | Department | Care Team | Description | +--------+ + + + + | 07/21/ | Telephone | [facility] | Abel Aguilar MD | | | 2018 | | [place] | [address] | | | | | Oculoplastics at | vd [place], [place] | | | | | [address] | [address] | | | | | [address] | [phone] | | | | | Eye [place] | | | | | | [address] | | | | | | [place] [address] | | | | | | [phone] | | | +--------+ + + + [...]
--- OUTSIDE RECORDS SUMMARY | ~2019-09-05 | XMS | Encounter Summary ---
Demographics + + + | Address | [address] | | | [place] [address] | + + + | Home Phone [...] Team Providers + +------+ + | Care Front Office Assistant Name | Role | Phone | + +------+ + | Bonita Forbes MD | PCP | | + +------+ + Encounter Details +--------+---------+ + + + | Date | Type | Department | Care Team | Description | +--------+---------+ + + + | 07/29/ | Office | [facility] | Abel Aguilar MD | Dermatochalasis of | | 2018 | Visit | [place] | [address] | both upper eyelids | | | | Oculoplastics at | [address]vd [place], [place] | (Primary Dx) | | | | [facility] [address] | [address] | | | | | [address] | [phone] | | | | | Eye [place] | | | | | | [facility], [facility] floor | | | | | | [place] [address] | | | | | | [phone] | | | +--------+---------+ + + + [...] is a 61 y.o. male. Referred by: Savgae Burciaga Pain: No pain (0 of 0-10) [...] upper lid blepharoplasty and ptosis repair 2013 ([place]) Plan: Reviewed po instructions F/u at [facility] eye care RTC with me prn Physician attestation: I have reviewed and edited history and central processing technician documentation, and performed all elements to above examination documentation. Abel Aguilar M.D. Sales Representative Ophthalmic Facial Plastic and Reconstructive Surgery documented in this encounter Plan of Treatment Not on filedocumented as of this encounter Visit Diagnoses + + | Diagnosis | + + | Dermatochalasis of both upper eyelids - Primary | + + documented in this encounter"
--- OUTSIDE RECORDS SUMMARY | ~2019-09-05 | XMS | Encounter Summary ---
Demographics + + + | Address | [address] | | | [place] [address] | + + + | Home Phone [...] Author | [facility] | + + + | Organization | [facility] | + + + | Address | Unknown | + + + | Phone | Unavailable | + + + Support + + +---------+ + | Name | Relationship | Address | Phone | + + +---------+ + | Jade Cortez | ECON | Unknown | | + + +---------+ + Care Team Providers + +------+ + | Care Distribution Tech Name | Role | Phone | + [...] Pre-Admission | | 2018 | Orders | [place] | [address] | | | | | Oculoplastics at | Blvd [place], [place] | | | | | [place] [address] | [address] | | | | | [address] | [phone] | | | | | Eye [place] | | | | | | [facility], 5th floor | | | | | | [place] [address] | | | | | | [phone] | | | +--------+ + + + [...]
--- OUTSIDE RECORDS SUMMARY | ~2019-09-05 | XMS | Encounter Summary ---
Demographics + + + | Address | [address] | | | [place] [address] | + + + | Home Phone | | + + + | Preferred Language | Unknown | + + + | Marital Status | | + + + | Zoroastrianism Affiliation | BIG | + + + | Race | White | + + + | Ethnic Group | Not or | + + + Author + + + | Author | [facility] | + + + | Organization | [facility] | + + + | Address | Unknown | + + + | Phone | Unavailable | + + + Support + + +---------+ + | Name | Relationship | Address | Phone | + + +---------+ + | Jade Cortez | ECON | Unknown | | + + +---------+ + Care Team Providers + +------+ + | Care Electric Powerline Examiner Name | Role | Phone | + [...] + + | 07/19/ | Hospital | [facility] | Abel Aguilar MD | | | 2018 | Encounter | STAY [address] [facility] | [address] | | | | | Dr Aquino Eye | [place], [place] | | | | | Kely Sweeney | [address] | | | | | [place], [place] | [phone] | | | | | [address] | [...] holidays, call and as k the power plant operators supervisor to page the Eye Doctor water filtration technician. Return appointment date: Time: documented in this [...] | 1 | 07/20/19 | | | [id number]-oaxzfmddo-w | to the both eyelid | | [...] Abel Walls | | | Maxim Aguilar. Line Worker Ophthalmic Facial Plastic and | | | [...] [place] | [address] | [place], [place] | | | TERRY RODRIGUEZ OF CARE | [address] | [address] | | | TESTS | | | [...]
--- OUTSIDE RECORDS SUMMARY | ~2019-09-05 | XMS | Encounter Summary ---
Demographics + + + | Address | [address] | | | [place] [address] | + + + | Home Phone [...] Team Providers + +------+ + | Care Steel Loader Name | Role | Phone | + [...] | | | | | | | [address] | | | | | | | [address] | | | | | | | Jose | | | | | | | [facility] [place] | | | | | | | [address] | | | | | | | Phone: | | | | | | | [phone] | | | | | | | Fax: | | | | | | | [phone] | +--------+--------+ + + + + Encounter Details +--------+---------+ + + + | Date | Type | Department | Care Team | Description | +--------+---------+ + + + | 06/17/ | Office | [facility] | Abel Aguilar MD | Brow ptosis (Primary | | 2018 | Visit | [place] | [address] | Dx); | | | | Oculoplastics at | [facility] [place] | Dermatochalasis of | | | | [facility] [address] | [address] | both upper eyelids | | | | [address] | [phone] | | | | | Eye [place] | | | | | | [facility], [address] [place] [address] | | | | | | [place] [address] | | | | | | [phone] | | | +--------+---------+ + + + [...] upper lid blepharoplasty and ptosis repair 2013 ([place]) Plan: Extensive discussion of options, patient wishes [...] I have reviewed and edited history and implementation technician documentation, and performed all elements to above examination documentation. Abel Aguilar M.D. Airbrush Artist Technical Ophthalmic Facial Plastic and Reconstructive Surgery documented in this encounter Plan of Treatment Not on filedocumented as of this encounter Procedures + +--------+ + + + | Procedure Name | Priori | Date/Time | Associated Diagnosis | Comments | | | ty | | | | + +--------+ + + + | CO EXTERNAL PHOTOS | Routin | 06/17/2017 | [...]
--- OUTSIDE RECORDS SUMMARY | ~2019-09-05 | XMS | Clinical Summary ---
Demographics + + + | Address | [address] | | | [place] [address] | + + + | Home Phone [...] + + | Author | [facility] | + + + | Organization | [facility] | + + + | Address | Unknown | + + + | Phone | Unavailable | + + + Support + + +---------+ + | Name | Relationship | Address | Phone | + + +---------+ + | Jade Cortez | ECON | Unknown | | + + +---------+ + Care Team Providers + +------+ + | Care Signal Maintainer Name | Role | Phone | + +------+ + | Bonita Forbes MD | PCP | | + +------+ + Source Comments NADIA is fully live on both [facility] Ambulatory and [facility] InPatient.[facility] Allergies No Known Allergies Medications [...] | MARGARITA | xxxxxxxx | 09/09/19 | [phone] | [address] | PPO | | | [facility] | | 07-Pre | 7 | [id number] | | | | | | sent | | [place] | | | | | | | | [address] | | + +--------+ +--------+ + +------+ [...] | | al/Fam | | 1955 | [phone] | [address] | | | [place] | | | 8 ([place]) | [address] | + +--------+ +--------+ + +
--- OUTSIDE RECORDS SUMMARY | ~2019-09-05 | XMS | Encounter Summary ---
Demographics + + + | Address | [address] | | | [place] [address] | + + + | Home Phone | | + + + | Preferred Language | Unknown | + + + | Marital Status | | + + + | Sabianism Affiliation | BIG | + + + | Race | White | + + + | Ethnic Group | Not or | + + + Author + + + | Author | [facility] | + + + | Organization | [facility] | + + + | Address | Unknown | + + + | Phone | Unavailable | + + + Support + + +---------+ + | Name | Relationship | Address | Phone | + + +---------+ + | Jade Cortez | ECON | Unknown | | + + +---------+ + Care Team Providers + +------+ + | Care Dietary Tech Name | Role | Phone | [...] [address] | | | | | | [place], [place] | | | | | | [address] | | | +--------+ + + + [...]
--- OUTSIDE RECORDS SUMMARY | ~2019-09-05 | XMS | Encounter Summary ---
Demographics + + + | Address | [address] | | | [place] [address] | + + + | Home Phone [...] Team Providers + +------+ + | Care Area Cleaner Name | Role | Phone | + +------+ + | Bonita Forbes MD | PCP | | + +------+ + Encounter Details +--------+ + + + + | Date | Type | Department | Care Team | Description | +--------+ + + + + | 07/19/ | Procedure | [facility] | | | | 2018 | Pass | [address] [facility] | | | | | | [facility] | | | | | | [place] [address] | | | +--------+ + + + [...]
--- OUTSIDE RECORDS SUMMARY | ~2019-09-05 | XMS | Encounter Summary ---
Demographics + + + | Address | [address] | | | [place] [address] | + + + | Home Phone | | + + + | Preferred Language | Unknown | + + + | Marital Status | | + + + | Episcopalian Affiliation | BIG | + + + | Race | White | + + + | Ethnic Group | Not or | + + + Author + + + | Author | [facility] | + + + | Organization | [facility] | + + + | Address | Unknown | + + + | Phone | Unavailable | + + + Support + + +---------+ + | Name | Relationship | Address | Phone | + + +---------+ + | Jade Cortez | ECON | Unknown | | + + +---------+ + Care Team Providers + +------+ + | Care Intensive Care Ambulance Paramedic Name | Role | Phone | + [...] | | [address] | [address] | [place]IFT | | | | [facility] | [address] [place], [place] | (TEMPORAL); | | | | [place] [address] | [address] | BILATERAL UPPER LID | | | | | [phone] | BLEPHAROPLASTY (C02 | | | | [...] and holidays, call and as k the mobile crane operator to page the Eye Doctor regional sales manager. Return appointment date: Time: documented in [...] | 1 | 07/20/19 | | | [id number]-zpqximbhy-y | to the both eyelid | | [...] Abel Walls | | | Maxim Aguilar. Java Front End Web Developer Ophthalmic Facial Plastic and | | [...] [place] | [address] | [place], [place] | | | JENNIFER POINT OF CARE | [facility] | [address] | | | TESTS | | | [...] | 1 strip | | | | rztdlohm-paqxpvczc-ddtianxiqnfot | | 18 9:38 | | | [...] 18 9:38 | | | | | 1%-1:888427 - bupivacaine 0.5% | | AM PDT [...]
--- OUTSIDE RECORDS SUMMARY | ~2019-09-05 | XMS | Encounter Summary ---
Demographics + + + | Address | [address] | | | [place] [address] | + + + | Home Phone | | + + + | Preferred Language | Unknown | + + + | Marital Status | | + + + | Cheondoism Affiliation | BIG | + + + | Race | White | + + + | Ethnic Group | Not or | + + + Author + + + | Author | [facility] | + + + | Organization | [facility] | + + + | Address | Unknown | + + + | Phone | Unavailable | + + + Support + + +---------+ + | Name | Relationship | Address | Phone | + + +---------+ + | Jade Cortez | ECON | Unknown | | + + +---------+ + Care Team Providers + +------+ + | Care Mixer Whipped Topping Name | Role | Phone | + [...] + | 07/19/ | Hospital | [facility] | Abel Aguilar MD | | | 2018 | Encounter | STAY [address] [facility] | [address] | | | | | Dr Aquino Eye | [place], [place] | | | | | [place] | [address] | | | | | [place], [place] | [phone] | | | | | [address] | [...] and holidays, call and as k the local telephone operator to page the Eye Doctor sustainability consultant. Return appointment date: Time: documented in this [...] | 1 | 07/20/19 | | | mvrsrjaw-hygnmunfa-f | to the both eyelid | | [...] Abel Walls | | | Maxim Aguilar. Historiographer Ophthalmic Facial Plastic and | | | [...] [place] | [address] | [place], [place] | | | TERRY RODRIGUEZ OF CARE | [address] | [address] | | | TESTS | | | [...]
--- OUTSIDE RECORDS SUMMARY | ~2019-09-05 | XMS | Encounter Summary ---
Demographics + + + | Address | [address] | | | [place] [address] | + + + | Home Phone | | + + + | Preferred Language | Unknown | + + + | Marital Status | | + + + | Nondenominational Affiliation | BIG | + + + [...] Team Providers + +------+ + | Care Webmethods Architect Name | Role | Phone | + +------+ + | Bonita Forbes MD | PCP | | + +------+ + Encounter Details +--------+---------+ + + + | Date | Type | Department | Care Team | Description | +--------+---------+ + + + | 07/29/ | Office | [facility] | Abel Aguilar MD | Dermatochalasis of | | 2018 | Visit | [place] | [address] | both upper eyelids | | | | Oculoplastics at | Blvd [place], [place] | (Primary Dx) | | | | [facility] [address] | [address] | | | | | [address] | [phone] | | | | | Eye [place] | | | | | | [facility], [facility] floor | | | | | | [place] [address] | | | | | | [phone] | | | +--------+---------+ + + + [...] upper lid blepharoplasty and ptosis repair 2013 ([place]) Plan: Reviewed po instructions F/u at [facility] eye care RTC with me prn Physician attestation: I have reviewed and edited history and nuclear chemistry technician documentation, and performed all elements to above examination documentation. Abel Aguilar M.D. Manager In Home Ophthalmic Facial Plastic and Reconstructive Surgery documented in this encounter Plan of Treatment Not on filedocumented as of this encounter Visit Diagnoses + + | Diagnosis | + + | Dermatochalasis of both upper eyelids - Primary | + + documented in this encounter"
--- OUTSIDE RECORDS SUMMARY | ~2019-09-05 | XMS | Encounter Summary ---
Demographics + + + | Address | [address] | | | [place] [address] | + + + | Home Phone [...] Team Providers + +------+ + | Care Bee Robber Name | Role | Phone | + [...] Red Curtis | | | | | [facility] | [address] [place], | | | | | [place] [address] | [place] [address] | | | | | | [phone] | | | | | | | [...]
--- OUTSIDE RECORDS SUMMARY | ~2019-09-05 | XMS | Encounter Summary ---
Demographics + + + | Address | [address] | | | [place] [address] | + + + | Home Phone | | + + + | Preferred Language | Unknown | + + + | Marital Status | | + + + | Christianity Affiliation | BIG | + + + [...] Team Providers + +------+ + | Care Dj Instructor Name | Role | Phone | + [...] testing | | 2018 | on | [place] | [address] | | | | | Oculoplastics at | [place], [place] | | | | | [facility] [address] | [address] | | | | | [address] | [phone] | | | | | Eye [place] | | | | | | [facility], [facility] floor | | | | | | [place] [address] | | | | | | [phone] | | | +--------+ + + + [...]
--- OUTSIDE RECORDS SUMMARY | ~2019-09-05 | XMS | Clinical Summary ---
Demographics + + + | Address | [address] | | | [place] [address] | + + + | Home Phone [...] + + | Author | [facility] | + + + | Organization | [facility] | + + + | Address | Unknown | + + + | Phone | Unavailable | + + + Support + + +---------+ + | Name | Relationship | Address | Phone | + + +---------+ + | Jade Cortez | ECON | Unknown | | + + +---------+ + Care Team Providers + +------+ + | Care Mushroom Growing Supervisor Name | Role | Phone | + +------+ + | Bonita Forbes MD | PCP | | + +------+ + Source Comments NADIA is fully live on both [facility] Ambulatory and [facility] InPatient.[facility] Allergies No Known Allergies Medications [...] | MARGARITA | xxxxxxxx | 09[birth year] | [phone] | [address] | PPO | | | [facility] | | 07-Pre | 7 | [id number] | | | | | | sent | | [place] | | | | | | | | [address] | | + +--------+ +--------+ + +------+ [...] | | al/Fam | | 1955 | [phone] | [address] | | | [place] | | | 8 ([place]) | [address] | + +--------+ +--------+ + +
--- OUTSIDE RECORDS SUMMARY | ~2019-09-05 | XMS | Encounter Summary ---
Demographics + + + | Address | [address] | | | [place] [address] | + + + | Home Phone | | + + + | Preferred Language | Unknown | + + + | Marital Status | | + + + | Religion Affiliation | BIG | + + + [...] Team Providers + +------+ + | Care Engraved Roller Inspector Name | Role | Phone | [...] testing | | 2018 | on | [place] | [address] | | | | | Oculoplastics at | [place], [place] | | | | | [facility] 515 | [address] | | | | | [address] | [phone] | | | | | Eye [place] | | | | | | [facility], [facility] floor | | | | | | [place] [address] | | | | | | [phone] | | | +--------+ + + + [...]
--- OUTSIDE RECORDS SUMMARY | ~2019-09-05 | XMS | Encounter Summary ---
Demographics + + + | Address | [address] | | | [place] [address] | + + + | Home Phone | | + + + | Preferred Language | Unknown | + + + | Marital Status | | + + + | Oriental Orthodox Affiliation | BIG | + + + | Race | White | + + + | Ethnic Group | Not or | + + + Author + + + | Author | [facility] | + + + | Organization | [facility] | + + + | Address | Unknown | + + + | Phone | Unavailable | + + + Support + + +---------+ + | Name | Relationship | Address | Phone | + + +---------+ + | Jade Cortez | ECON | Unknown | | + + +---------+ + Care Team Providers + +------+ + | Care Serger Name | Role | Phone | + +------+ + | Bonita Forbes MD | PCP | | + +------+ + Encounter Details +--------+ + + + + | Date | Type | Department | Care Team | Description | +--------+ + + + + | 07/19/ | Procedure | [facility] LOC | | | | 2018 | Pass | [address] [facility] | | | | | | [facility] | | | | | | [place] [address] | | | +--------+ + + + [...]
--- OUTSIDE RECORDS SUMMARY | ~2019-09-05 | XMS | Encounter Summary ---
Demographics + + + | Address | [address] | | | [place] [address] | + + + | Home Phone | | + + + | Preferred Language | Unknown | + + + | Marital Status | | + + + | Protestant Affiliation | BIG | + + + [...] Team Providers + +------+ + | Care Powder Mixer Name | Role | Phone | + [...] Red Curtis | | | | | [facility] | [address] [place], | | | | | [place] [address] | [place] [address] | | | | | | [phone] | | | | | | | [...]
--- OUTSIDE RECORDS SUMMARY | ~2019-09-05 | XMS | Encounter Summary ---
Demographics + + + | Address | [address] | | | [place] [address] | + + + | Home Phone | | + + + | Preferred Language | Unknown | + + + | Marital Status | | + + + | Voodoo Affiliation | BIG | + + + [...] Team Providers + +------+ + | Care Cotton Broker Name | Role | Phone | + [...] Pre-Admission | | 2018 | Orders | [place] | [address] | | | | | Oculoplastics at | Blvd [place], [place] | | | | | [address] | [address] | | | | | [address] | [phone] | | | | | Eye [place] | | | | | | [facility], 5th floor | | | | | | [place] [address] | | | | | | [phone] | | | +--------+ + + + [...]
--- OUTSIDE RECORDS SUMMARY | ~2019-09-05 | XMS | Encounter Summary ---
Demographics + + + | Address | [address] | | | [place] [address] | + + + | Home Phone [...] Team Providers + +------+ + | Care Attending Anesthesiologist Name | Role | Phone | + [...] Rd | | | | | | [place], [place] | | | | | | [address] | | | +--------+ + + + [...]
--- OUTSIDE RECORDS SUMMARY | ~2019-09-05 | XMS | Encounter Summary ---
Demographics + + + | Address | [address] | | | [place] [address] | + + + | Home Phone | | + + + | Preferred Language | Unknown | + + + | Marital Status | | + + + | Jehovah'S Witness Affiliation | BIG | + + + [...] Team Providers + +------+ + | Care Supervisor Riprap Placing Name | Role | Phone | + [...] Rd | | | | | | [place], [place] | | | | | | [address] | | | +--------+ + + + [...]
--- OUTSIDE RECORDS SUMMARY | ~2019-09-05 | XMS | Encounter Summary ---
Demographics + + + | Address | [address] | | | [place] [address] | + + + | Home Phone | | + + + | Preferred Language | Unknown | + + + | Marital Status | | + + + | Baptist Affiliation | BIG | + + + [...] Team Providers + +------+ + | Care Sink Maker Name | Role | Phone | [...] | | [address] | [address] | [address] [place] | | | | [facility] | [address] [place], [place] | (TEMPORAL); | | | | [place] [address] | [address] | BILATERAL UPPER LID | | | | | [phone] | BLEPHAROPLASTY (C02 | | | | [...] and holidays, call and as k the cutter grinder operator to page the Eye Doctor foundation digger. Return appointment date: Time: documented in this [...] | 1 | 07/20/19 | | | tcmuzver-qzjvabajg-l | to the both eyelid | | [...] Abel Walls | | | Maxim Aguilar. Digital Designer Ophthalmic Facial Plastic and | | | [...] [place] | [address] | [place], [place] | | | JENNIFER POINT OF CARE | [facility] | [address] | | | TESTS | | | [...] | 1 strip | | | | caluxntn-fjavgfynw-piwnacezrppzw | | 18 9:38 | | | [...] 18 9:38 | | | | | 1%-1:620259 - bupivacaine 0.5% | | AM PDT [...]
--- OUTSIDE RECORDS SUMMARY | ~2019-09-05 | XMS | Encounter Summary ---
Demographics + + + | Address | [address] | | | [place] [address] | + + + | Home Phone [...] Team Providers + +------+ + | Care Chemical Applicator Name | Role | Phone | + [...] | | [address] | [address] | [place] | | | | [facility] | [address]vd [place], [place] | (TEMPORAL); | | | | [place] [address] | [address] | BILATERAL UPPER LID | | | | | [phone] | BLEPHAROPLASTY (C02 | | | | [...] and holidays, call and as k the roll up guider operator to page the Eye Doctor sports nutritionist. Return appointment date: Time: documented in this [...] | 1 | 07/20/19 | | | fhqqfyrj-eklhexxcj-m | to the both eyelid | | [...] Abel Walls | | | Maxim Aguilar. Rougher Machine Operator Ophthalmic Facial Plastic and | [...] [place] | [address] | [place], [place] | | | JENNIFER POINT OF CARE | [facility] | [address] | | | TESTS | | | [...] | 1 strip | | | | brbtbhoo-bqhrdqzaq-hwrjtkzuuoplk | | 18 9:38 | | | [...] 18 9:38 | | | | | 1%-1:948885 - bupivacaine 0.5% | | AM PDT [...]
--- OUTSIDE RECORDS SUMMARY | ~2019-09-05 | XMS | Encounter Summary ---
Demographics + + + | Address | [address] | | | [place] [address] | + + + | Home Phone [...] Team Providers + +------+ + | Care Script Developer Name | Role | Phone | [...] | | | | | | | [address] | | | | | | [address] | | | | | | | [place] | | | | | | | [facility] [place] | | | | | | | [address] | | | | | | | Phone: | | | | | | | [phone] | | | | | | | Fax: | | | | | | | [phone] | +--------+--------+ + + + + Encounter Details +--------+---------+ + + + | Date | Type | Department | Care Team | Description | +--------+---------+ + + + | 06/17/ | Office | [facility] | Abel Aguilar MD | Brow ptosis (Primary | | 2018 | Visit | [place] | [address] | Dx); | | | | Oculoplastics at | [facility] [place] | Dermatochalasis of | | | | [facility] [address] | [address] | both upper eyelids | | | | [address] | [phone] | | | | | Eye [place] | | | | | | [facility], [address] [place] [address] | | | | | | [place] [address] | | | | | | [phone] | | | +--------+---------+ + + + [...] upper lid blepharoplasty and ptosis repair 2013 ([place]) Plan: Extensive discussion of options, patient wishes [...] I have reviewed and edited history and forestry technician documentation, and performed all elements to above examination documentation. Abel Aguilar M.D. House Visitor Ophthalmic Facial Plastic and Reconstructive Surgery documented in this encounter Plan of Treatment Not on filedocumented as of this encounter Procedures + +--------+ + + + | Procedure Name | Priori | Date/Time | Associated Diagnosis | Comments | | | ty | | | | + +--------+ + + + | ID EXTERNAL PHOTOS | Routin | 06/17/2017 | [...]
--- OUTSIDE RECORDS SUMMARY | ~2019-09-05 | XMS | Encounter Summary ---
Demographics + + + | Address | [address] | | | [place] [address] | + + + | Home Phone [...] Team Providers + +------+ + | Care Roller Die Cutting Machine Operator Name | Role | Phone | + +------+ + | Bonita Forbes MD | PCP | | + +------+ + Encounter Details +--------+---------+ + + + | Date | Type | Department | Care Team | Description | +--------+---------+ + + + | 07/29/ | Office | [facility] | Abel Aguilar MD | Dermatochalasis of | | 2018 | Visit | [place] | [address] | both upper eyelids | | | | Oculoplastics at | Blvd [place], [place] | (Primary Dx) | | | | [facility] [address] | [address] | | | | | [address] | [phone] | | | | | Eye [place] | | | | | | [facility], [facility] | | | | | | [place] [address] | | | | | | [phone] | | | +--------+---------+ + + + [...] upper lid blepharoplasty and ptosis repair 2013 ([place]) Plan: Reviewed po instructions F/u at [facility] eye care RTC with me prn Physician attestation: I have reviewed and edited history and medic technician documentation, and performed all elements to above examination documentation. Abel Aguilar M.D. Engineer Gas Pumping Station Ophthalmic Facial Plastic and Reconstructive Surgery documented in this encounter Plan of Treatment Not on filedocumented as of this encounter Visit Diagnoses + + | Diagnosis | + + | Dermatochalasis of both upper eyelids - Primary | + + documented in this encounter"
--- OUTSIDE RECORDS SUMMARY | ~2019-09-05 | XMS | Encounter Summary ---
Demographics + + + | Address | [address] | | | [place] [address] | + + + | Home Phone [...] Team Providers + +------+ + | Care Quantitative Developer Name | Role | Phone | + +------+ + | Bonita Forbes MD | PCP | | + +------+ + Encounter Details +--------+---------+ + + + | Date | Type | Department | Care Team | Description | +--------+---------+ + + + | 06/28/ | Office | [facility] | Abel Aguilar MD | Dermatochalasis of | | 2018 | Visit | [place] | [address] | both upper eyelids | | | | Oculoplastics at | [address]vd [place], [place] | (Primary Dx); Brow | | | | [place] [address] | [address] | ptosis | | | | [address] | [phone] | | | | | Eye [place] | | | | | | [facility], [facility] floor | | | | | | [place] [address] | | | | | | [phone] | | | +--------+---------+ + + + [...] upper lid blepharoplasty and ptosis repair 2013 ([place]) Plan: Extensive discussion of options, patient wishes [...] I have reviewed and edited history and medical laboratory technician documentation, and performed all elements to above examination documentation. Abel Aguilar M.D. Conveyor Attendant Ophthalmic Facial Plastic and Reconstructive Surgery documented in this encou nter Plan of Treatment Not on filedocumented as of this encounter Procedures + +--------+ + + + | Procedure Name | Priori | Date/Time | Associated Diagnosis | Comments | | | ty | | | | + +--------+ + + + | [place] VISUAL FIELD | Routin | 06/28/2017 | [...]
--- OUTSIDE RECORDS SUMMARY | ~2019-09-05 | XMS | Encounter Summary ---
Demographics + + + | Address | [address] | | | [place] [address] | + + + | Home Phone | | + + + | Preferred Language | Unknown | + + + | Marital Status | | + + + | Uatsdin Affiliation | BIG | + + + | Race | White | + + + | Ethnic Group | Not or | + + + Author + + + | Author | [facility] | + + + | Organization | [facility] | + + + | Address | Unknown | + + + | Phone | Unavailable | + + + Support + + +---------+ + | Name | Relationship | Address | Phone | + + +---------+ + | Jade Cortez | ECON | Unknown | | + + +---------+ + Care Team Providers + +------+ + | Care Pre Sales Technical Consultant Name | Role | Phone | [...] [address] | | | | | | [place], [place] | | | | | | [address] | | | +--------+ + + + [...]
--- OUTSIDE RECORDS SUMMARY | ~2019-09-05 | XMS | Encounter Summary ---
Demographics + + + | Address | [address] | | | [place] [address] | + + + | Home Phone | | + + + | Preferred Language | Unknown | + + + | Marital Status | | + + + | Samaritan Affiliation | BIG | + + + [...] Team Providers + +------+ + | Care Rv Servicer Name | Role | Phone | + +------+ + | Bonita Forbes MD | PCP | | + +------+ + Encounter Details +--------+ + + + + | Date | Type | Department | Care Team | Description | +--------+ + + + + | 07/19/ | Procedure | [facility] | | | | 2018 | Pass | [address] | | | | | | [facility] | | | | | | [place] [address] | | | +--------+ + + + [...]
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
[2019-09-05] MEDS ORDERED: CATAPRES0.2 MG PO (01:30)
[2019-09-05] MEDS ORDERED: KETOROLAC TROME10 MG PO (01:30)
[2019-09-05] MEDS ORDERED: SILDENAFIL20 MG PO (01:31)
[2019-09-05] MEDS ORDERED: DESVENLAFAXINE50 MG PO (01:31)
[2019-09-05] MEDS ORDERED: OXYBUTYNIN CHLOR5 M1 PO (01:34)
[2019-09-05] MEDS ORDERED: VENTOLIN HFA18 GM INH (01:35)
[2019-09-05] MEDS ORDERED: FLONASE SENSIM5.9 ML NAS (01:35)
[2019-09-05] MEDS ORDERED: COMBIVENT RESPIM4 GM INH (01:36)
--- NOTE | 2019-09-05 06:30 | NUR ---
CALL TO DR. CANTU PLACED. PT WITH PREVIOUS NEGATIVE COVID 19 TEST REPORTED FROM [facility] ON 09/04/19. PER DR. CANTU NO REPEAT COVID 19 SWAB NEEDED FOR ADMISSION AT THIS TIME. PT TRANSFERED TO CO VIA STRETCHER.
--- NOTE | 2019-09-05 06:57 | NUR ---
PT ARRIVED TO FLOOR VIA STRETCHER AT 0644. HE WAS ABLE TO AMBULATE OVER TO BED SBA. HIS RR IS 24 AND HE IS SOB WITH EXERTION ON 2LNC. PT IS TUCKED INTO BED AND ORIENTED TO UNIT. CALL LIGHT IS CLOSE.
--- NOTE | 2019-09-05 07:25 | NUR ---
REPORT RECEIVED. PT IN BED AWAKE. RR 24, 2L NC IN PLACE. TELE IN PLACE. BREAKFAST ORDERED. CALL LIGHT IN REACH.
--- NOTE | 2019-09-05 08:14 | NUR ---
PT WITH RR FROM 24 TO 30. REPORTING DIFFICULTY BREATHING. 2L NC IN PLAC.E O2 AT 96%. DR CANTU NOTIFIED. ORDER FOR DUONEB Q2P. RT CALLED FOR BREATHING TREATMENT.
--- NOTE | 2019-09-05 08:30 | NUR ---
PATIENT SITTING UP IN BED. VISITOR IN ROOM. WITHE BOARD UPDATED. PATIENT'S BREAKFAST ORDERED. CALL LIGHT WITHIN REACH. NO OTHER NEEDS AT THIS TIME
--- NOTE | 2019-09-05 09:06 | NUR ---
PATIENT RESTING IN BED. VITAL SIGNS AND I&O DONE. SETS UP TABLE FOR BREAKFAST. CALL LIGHT WITHIN REACH. NO OTHER NEEDS AT THIS TIME
--- NOTE | 2019-09-05 09:36 | NUR ---
PT TITRATED TO RA. 96% WHILE STANDING. PT DENEIS SOB. PT OUT AMBULATING HALLS INDEPENDENTLY.
--- NOTE | 2019-09-05 10:00 | NUR ---
MEDICATIONS ADMINISTERED. PT REPORTING LOWER BACK PAIN. TYLENOL GIVEN. ASSESSMENT DONE. PT TOLERATING RA AIR GOOD. SATURATIONS 95% ON RA.
[2019-09-05] MEDS ORDERED: DESVENLAFAXINE25 MG PO (10:08)
[2019-09-05] MEDS ORDERED: DESVENLAFAXINE50 M3 PO (10:08)
[2019-09-05] MEDS ORDERED: OXYBUTYNIN CHLOR5 MG PO (10:09)
[2019-09-05] MEDS ORDERED: QUETIAPINE FUMA50 M1 PO (10:12)
[2019-09-05] MEDS ORDERED: CLONIDINE HCL0.2 MG PO (10:15)
--- NOTE | 2019-09-05 12:00 | NUR ---
PT STILL REPORTING PAIN. TORIDOL GIVEN. PT SITTING AT SIDE OF BED EATING LUNCH. NO FURTHER NEEDS.
--- NOTE | 2019-09-05 12:58 | EKG ---
[facility] [address] [facility] [place], [place] [address] Signed Sinus tachycardia Possible Left atrial enlargement Possible Anterior infarct , age undetermined T wave abnormality, consider inferior ischemia Abnormal ECG No previous ECGs available Confirmed by KLARISSA CANTU MD ([id number]) on 09/05/2019 12:57:55 PM Electronically Signed By: KLARISSA CANTU MD 09/05/19 1258 PATIENT NAME: NATIVIDAD FERMIN SR Electrocardiogram DATE OF : 59 PHYSICIAN: KLARISSA CANTU MD REPORT #: [id number] REPORT IS CONFIDENTIAL AND NOT TO BE RELEASED WITHOUT AUTHORIZATION
--- NOTE | 2019-09-05 13:30 | NUR ---
PT REQUESTING NICOTINE PATCH. NIO PLACED. ALSO REPORTING NAUSEA. ZOFRAN ADMINSTERED.
--- NOTE | 2019-09-05 13:53 | NUR ---
PATIENT RESTING IN BED. VITAL SIGNS AND I&O DONE. LOW OUTPUT. RN NOTIFIED. CALL LIGHT WITHIN REACH. NO OTHER NEEDS AT THIS TIME
--- NOTE | 2019-09-05 15:10 | NUR ---
PT OUT AMBULATING HALLS INDEPENDENTLY.
--- NOTE | 2019-09-05 15:11 | NUR ---
PATIENT AMBULATING IN THE HALLWAY
--- NOTE | 2019-09-05 16:59 | NUR ---
PATIENT RESTING IN BED. IN ROOM. VITAL SIGNS AND I&O DONE. CALL LIGHT WITHIN REACH. NO OTHER NEEDS AT THIS TIME
--- NOTE | 2019-09-05 18:11 | NUR ---
PT HAD GREAT DAY. AMBULATED MULTIPLE TIMES. ON RA. NO SOB. EATING DRINKING WELL. BREATHING TREATMENT SCHEDULED. LR AT 100. INDEPENDENT IN ROOM.
--- NOTE | 2019-09-05 19:00 | NUR ---
SHIFT REPORT RECEIVED LACIE ANDREWS. PT AWAKE AND RESTING IN BED, REQUESTING BREATHING TREATMENT. CPOX IN PLACE, PT ON RA. O2 SAT 92%, HR 66. CALL LIGHT IN REACH, BOARD UPDATED.
--- NOTE | 2019-09-05 19:25 | NUR ---
PT AMBULATING IN HALLWAY INDEPENDENTLY WITH COMPANY. NO DISTRESS NOTED.
--- NOTE | 2019-09-05 19:50 | NUR ---
UNABLE TO REACH RT. SCHEDULED NEB TREATMENT GIVEN (SEE EMAR). CPOX IN PLACE, O2 SAT AND HR WNL. PT RECENTLY AMBULATING IN HALLWAY. NO FURTHER NEEDS, CALL LIGHT IN REACH.
--- NOTE | 2019-09-05 20:10 | NUR ---
CPOX BEEPING, RESOLVED. pt UP TO DO PM CARES. REQUESTED TO SHOWER, PROVIDED TOWELS AND SOAP. IV SITE WRAPPED. pt WILL CALL IF HE NEEDS ASSISTANCE VERBALIZED UNDERSTANDING OF SAFETY. CALL LIGHT WITHIN REACH.
--- NOTE | 2019-09-05 21:29 | NUR ---
VITALS AND I&OS DONE AND CHARTED. BLOOD SUGAR DONE AND CHARTED WELL. FRESH WATER GIVEN. PT REQUESTED COFFEE, I LET HIM KNOW I WILL BRING IT IN SOON IT IS DONE , WE ARE MAKING A FRESH BATCH. BEDSIDE TABLE AND CALL LIGHT IN REACH.
--- NOTE | 2019-09-05 21:35 | NUR ---
ASSESSMENT COMPLETE, SCHEDULED MEDS GIVEN (SEE EMAR). PT AWAKE, A/OX4, VSS. CPOX IN PLACE, O2 SAT AND HR REMAIN WNL. LUNG SOUNDS CLEAR, NO DISTRESS NOTED. PRN TORADOL ALSO GIVEN FOR PAIN IN BACK. DENIES NAUSEA, NO FURTHER NEEDS. CALL LIGHT IN REACH.
--- NOTE | 2019-09-05 22:04 | NUR ---
BROUGHT PT COFFEE, HE DENIES FURTHER NEEDS AT THIS TIME. CALL LIGHT IS CLOSE.
--- NOTE | 2019-09-06 00:05 | NUR ---
PT RESTING IN BED WITH EYES CLOSED. RR EVEN AND UNLABORED. CPOX IN PLACE, O2 SAT 90%, HR 74. CALL LIGHT IN REACH.
--- NOTE | 2019-09-06 01:51 | NUR ---
PT WALKED UP THE RN STATION REPORTING SOB AND REQUESTING BREATHING TREATMENT. RT CALLED AND IN ROOM. ASSESSMENT COMPLETE, VSS. CPOX IN PLACE. O2 SAT 93% ON RA, LUNG SOUNDS CLEAR. PT RECEIVING BREATHING TREATMENT AT THIS TIME. URINAL EMPTIED. NO FURTHER NEEDS, CALL LIGHT IN REACH.
--- NOTE | 2019-09-06 02:30 | NUR ---
PT RESTING IN BED. INFORMED BY KARSTEN HERNANDEZ O2 SAT 87% ON RA. THIS RN IN ROOM TO ASSESS. PT RESTING IN BED WITH EYES CLOSED, RR EVEN AND UNLABORED. O2 SAT 88-89% ON RA. HR 80-90'S. PT PLACED ON 1LNC, DISCUSSED WITH PT. PT DENIES SOB AT THIS TIME, NO DISTRESS NOTED. WILL TITRATE TO RA ABLE. CALL LIGHT IN REACH.
--- NOTE | 2019-09-06 03:15 | NUR ---
PT TITRATED TO 0.5LNC, O2 SAT SUSTAINING AT 92%. NO DISTRESS NOTED, CALL LIGHT IN REACH.
--- NOTE | 2019-09-06 04:23 | NUR ---
PT RESTING IN BED, EYES CLOSED. RR EVEN AND UNLABORED. NC FOUND ON THE GROUND, O2 SAT 90% ON RA. WILL MONITOR. HR 80'S. CALL LIGHT IN REACH.
--- NOTE | 2019-09-06 06:50 | NUR ---
VITALS AND I&OS DONE AND CHARTED. GARBAGES EMPTIED. BEDSIDE TABLE AND CALL LIGHT IN REACH. PT NEEDS NOTHING AT THIS TIME.
--- NOTE | 2019-09-06 07:22 | NUR ---
pt had a good night, placed on 1lnc during the night. resolved and has been on ra since. breathing treatments prn and scheduled. lung sounds clear, ambulates in hallway independently. ada diet, tolerating well. no nasuea. pain controlled with prn toradol.
--- NOTE | 2019-09-06 07:26 | NUR ---
REPORT RECIEVED. PT SITTING IN CHAIR. DENIES NEEDS. CALL LIGHT IN REACH.
--- NOTE | 2019-09-06 08:15 | NUR ---
PATIENT SITTING UP IN CHAIR. IN ROOM. WHITE BOARD UPDATED. PATIENT REFUSED TO TAKE A SHOWER TODAY BECAUSE HE SAID THAT HE TOOK A SHOWER LAST NIGHT. CALL LIGHT WITHIN REACH. NO OTHER NEEDS AT THIS TIME
--- NOTE | 2019-09-06 09:07 | NUR ---
PATIENT RESTING IN BED. IN ROOM. VITAL SIGNS AND I&O DONE. CALL LIGHT WITHIN REACH. NO OTHER NEEDS AT THIS TIME
[2019-09-06] MEDS ORDERED: DOXYCYCLINE HY100 MG PO (09:42)
[2019-09-06] MEDS ORDERED: IPRAT-ALBUT 0.5-3 ML INH (09:43)
[2019-09-06] MEDS ORDERED: NICOTINE1 EAC1 TD (09:44)
[2019-09-06] MEDS ORDERED: PREDNISONE20 MG PO (09:45)
[2019-09-06] MEDS ORDERED: METFORMIN HCL1000 MG PO (09:46)
--- NOTE | 2019-09-06 09:54 | NUR ---
ROUNDED WITH DR CANTU. DISCHARGE PLAN AND IMAGING RESULTS DISCUSSED.
== END 2019-09-06 10:35 | disposition home or self-care (01) ==
LOC: ED 00:57 → MS 00:58
PROVIDERS: ADMIT Internal Medicine
DX: J44.1 Chronic obstructive pulmonary disease with (acute) exacerbation (principal); J96.01 Acute respiratory failure with hypoxia; D69.6 Thrombocytopenia, unspecified; D72.819 Decreased white blood cell count, unspecified; E83.42 Hypomagnesemia; E87.6 Hypokalemia; R91.8 Other nonspecific abnormal finding of lung field; R59.0 Localized enlarged lymph nodes; F43.10 Post-traumatic stress disorder, unspecified; E11.9 Type 2 diabetes mellitus without complications; F41.8 Other specified anxiety disorders; K21.9 Gastro-esophageal reflux disease without esophagitis; F17.210 Nicotine dependence, cigarettes, uncomplicated; Z88.8 Allergy status to other drugs, medicaments and biological substances; Z79.899 Other long term (current) drug therapy; Z79.84 Long term (current) use of oral hypoglycemic drugs; Z99.89 Dependence on other enabling machines and devices
CPT/HCPCS: 36415; 71045; 71260; 80048; 80053; 83735; 83880; 84484; 85025; 85379; 93005; 93010; 94640; 94667; 94668; 94760; 94762; 96365; 96366; 96375; 96376; 99285-25; C9113; G0378; J1200; J1815; J1885; J2405; J2930; J3475; J7030; J7121; J7512; Q9967

== ENCOUNTER 2019-09-13 10:55 | Emergency (ER) | payer OTHER ==
[~2019-09-13] VITALS: Ht 162.6 cm; Wt 88.4 kg
--- OUTSIDE RECORDS SUMMARY | ~2019-09-13 | XMS | Encounter Summary ---
Demographics + + + | Address | [address] | | | [place] [address] | + + + | Home Phone | | + + + | Preferred Language | Unknown | + + + | Marital Status | | + + + | Orthodox Affiliation | BIG | + + + | Race | White | + + + | Ethnic Group | Not or | + + + Author + + + | Author | [facility] | + + + | Organization | [facility] | + + + | Address | Unknown | + + + | Phone | Unavailable | + + + Support + + +---------+ + | Name | Relationship | Address | Phone | + + +---------+ + | Jade Cortez | ECON | Unknown | | + + +---------+ + Care Team Providers + +------+ + | Care Flue Blower Name | Role | Phone | + [...] Pre-Admission | | 2018 | Orders | [place] | [address] | | | | | Oculoplastics at | Blvd [place], [place] | | | | | [address] | [address] | | | | | [address] | [phone] | | | | | Eye [place] | | | | | | [facility], 5th floor | | | | | | [place] [address] | | | | | | [phone] | | | +--------+ + + + [...]
--- OUTSIDE RECORDS SUMMARY | ~2019-09-13 | XMS | Encounter Summary ---
Demographics + + + | Address | [address] | | | [place] [address] | + + + | Home Phone | | + + + | Preferred Language | Unknown | + + + | Marital Status | | + + + | Mormonism Affiliation | BIG | + + + | Race | White | + + + | Ethnic Group | Not or | + + + Author + + + | Author | [facility] | + + + | Organization | [facility] | + + + | Address | Unknown | + + + | Phone | Unavailable | + + + Support + + +---------+ + | Name | Relationship | Address | Phone | + + +---------+ + | Jade Cortez | ECON | Unknown | | + + +---------+ + Care Team Providers + +------+ + | Care Photo Lab Technician Name | Role | Phone | + +------+ + | Bonita Forbes MD | PCP | | + +------+ + Encounter Details +--------+---------+ + + + | Date | Type | Department | Care Team | Description | +--------+---------+ + + + | 07/29/ | Office | [facility] | Abel Aguilar MD | Dermatochalasis of | | 2018 | Visit | [place] | [address] | both upper eyelids | | | | Oculoplastics at | Blvd [place], [place] | (Primary Dx) | | | | [facility] [address] | [address] | | | | | [place] [address] | [phone] | | | | | Eye [place] | | | | | | [facility], [facility] floor | | | | | | [place] [address] | | | | | | [phone] | | | +--------+---------+ + + + Social History + +-------+ [...] + + documented as of this encounter Progress Notes Abel Aguilar MD - 07/29/2017 8:40 AM PDTFormatting of this note might be different from t he original. Suman Cortez Sr. is a 61 y.o. male. Referred by: Savage Burciaga Pain: No pain (0 of 0-10) Patient is here 10 days s/p Procedure: 07/19/17 Dr. Aguilar 1. Bilateral direct brow lift 2. Bilateral upper lid blepharoplasty Patient doing well, already pleased with the improvement in vision. No concerns at all. Wh at a difference. Exam: Vision intact Lid Measurements: RE (mm) LE (mm) Sup SS Crease HT VPF 9 9 LF MRDI 4 4 Inf SS Lag 0 0 Incisions healing well Expected postop edema, ecchymosis SLE: C/S quiet OU K clear OU AC D&Q OU Iris nl OU Impression: 1. Doing well 10 days s/p bilateral direct brow lift, bilateral upper lid blepharoplasty 01/26 2. History of bilateral brow ptosis, upper lid dermatochalasis, visually significant 3. S/p bilateral upper lid blepharoplasty and ptosis repair 2013 ([place]) Plan: Reviewed po instructions F/u at [facility] eye care RTC with me prn Physician attestation: I have reviewed and edited history and wildlife biology technician documentation, and performed all elements to above examination documentation. Abel Aguilar M.D. Carbon Sequestration Plant Operator Ophthalmic Facial Plastic and Reconstructive Surgery documented in this encounter Plan of Treatment Not on filedocumented as of this encounter Visit Diagnoses + + | Diagnosis | + + | Dermatochalasis of both upper eyelids - Primary | + + documented in this encounter"
--- OUTSIDE RECORDS SUMMARY | ~2019-09-13 | XMS | Encounter Summary ---
Demographics + + + | Address | [address] | | | [place] [address] | + + + | Home Phone | | + + + | Preferred Language | Unknown | + + + | Marital Status | | + + + | Baptism Affiliation | BIG | + + + | Race | White | + + + | Ethnic Group | Not or | + + + Author + + + | Author | [facility] | + + + | Organization | [facility] | + + + | Address | Unknown | + + + | Phone | Unavailable | + + + Support + + +---------+ + | Name | Relationship | Address | Phone | + + +---------+ + | Jade Cortez | ECON | Unknown | | + + +---------+ + Care Team Providers + +------+ + | Care City Clerk Name | Role | Phone | + [...] Pre-Admission | | 2018 | Orders | [place] | [address] | | | | | Oculoplastics at | Blvd [place], [place] | | | | | [address] | [address] | | | | | [address] | [phone] | | | | | Eye [place] | | | | | | [facility], 5th floor | | | | | | [place] [address] | | | | | | [phone] | | | +--------+ + + + [...]
--- OUTSIDE RECORDS SUMMARY | ~2019-09-13 | XMS | Encounter Summary ---
Demographics + + + | Address | [address] | | | [place] [address] | + + + | Home Phone | | + + + | Preferred Language | Unknown | + + + | Marital Status | | + + + | Restoration Affiliation | BIG | + + + | Race | White | + + + | Ethnic Group | Not or | + + + Author + + + | Author | [facility] | + + + | Organization | [facility] | + + + | Address | Unknown | + + + | Phone | Unavailable | + + + Support + + +---------+ + | Name | Relationship | Address | Phone | + + +---------+ + | Jade Cortez | ECON | Unknown | | + + +---------+ + Care Team Providers + +------+ + | Care Industrial Training Specialist Name | Role | Phone | [...] + + + + | 07/19/ | Anesthesia | [facility] | Yecenia Franco MD | | | 2018 | Event | [address] | [address] | | | | | [facility] | [address] [place], | | | | | [place] [address] | [place] [address] | | | | | | [phone] | | | | | | | | +--------+ + + + + Anesthesia Record + + + + + | Procedure Name | Responsible | Anesthesia Start | Anesthesia Stop Time | | | Anesthesiologist | Time | | + + + + + | BILATERAL DIRECT | Yecenia Franco MD | 07/19/17 0913 | 07/19/17 1000 | | BROW LIFT | | | | | (TEMPORAL); | | | | | BILATERAL UPPER LID | | | | | BLEPHAROPLASTY (C02 | | | | | LASER) (Bilateral | | | | | Eye) | | | | + + + + + +----+---+ + + | Da | T | Event | Comment | | te | i | | | | | m | | | | | e | | | +----+---+ + + | 05 | 0 | Eq Check | Anesthesia machine checked Equipment verified | | /1 | 9 | | | | 1/ | 1 | | | | 20 | 0 | | | | 18 | | | | +----+---+ + + | | 0 | Pt. Check | Prior to anesthesia start, pt. Identified, examined, chart | | | 9 | | reviewed, PAROlivia held, anesthetic plan made or approved by | | | 1 | | attending anesthesiologist. NPO status confirmed as appropriate | | | 0 | | for procedure Preoperative evaluation: unchanged | +----+---+ + + | | 0 | An Start | | | | 9 | | | | | 1 | | | | | 3 | | | +----+---+ + + | | 0 | An Start | | | | 9 | Data | | | | 1 | | | | | 5 | | | +----+---+ + + | | 0 | Vitals | Monitors applied Vital signs checked Patient ready for anesthesia | | | 9 | Checked | | | | 1 | | | | | 5 | | | +----+---+ + + | | 0 | Quick [facility] | a) Monitors Placed b) Arms <90 degrees c) Warm Blankets placed | | | 9 | | Upper and Lower Body d) Bed Turned 90 Degrees | | | 1 | | | | | 5 | | | +----+---+ + + | | 0 | O2 by FM | | | | 9 | | | | | 1 | | | | | 5 | | | +----+---+ + + | | 0 | Abx held | Contraindicated, or not indicated for this procedure, or already | | | 9 | Medical or | receiving antibiotics | | | 1 | Surgical | | | | 5 | Reason | | +----+---+ + + | | 0 | Ready | | | | 9 | | | | | 1 | | | | | 9 | | | +----+---+ + + | | 0 | Incision | | | | 9 | | | | | 3 | | | | | 1 | | | +----+---+ + + | | 0 | Surgery end | | | | 9 | | | | | 5 | | | | | 4 | | | +----+---+ + + | | 0 | an stop | | | | 9 | data | | | | 5 | | | | | 4 | | | +----+---+ + + | | 1 | Anesthesia | | | | 0 | End | | | | 0 | | | | | 0 | | | +----+---+ + + +------+ | Meds | +------+ + + + | Name | Total | + + + | midazolam | 2 mg | + + + | alfentanil | 1,000 mcg | + + + | dexamethasone | 4 mg | + + + | propofol | 100 mg | + + + + + | Name | + + | O2 Flow Rate (Total Liters) | + + + + | No blood administrations on file. | + + +--------+ + + + | Type | Details | Placement | Removal | +--------+ + + + | Incisi | 07/19/17; Other (comment) | 07/19/17 0000 by | 07/19/17 1021 by | | on | (bilateral); eye; 07/19/17; 1021 | Vera Kincaid RN | Vera Kincaid RN | +--------+ + + + | Periph | 07/19/17; 0802; Right; Wrist; 22 | 07/19/17 0802 by | 07/19/17 1021 by | | eral | g; Positive; 07/19/17; 1021 | Griselda Seo RN | Vera Kincaid RN | | IV | | | | +--------+ + + + documented in this encounter Social History + +-------+ +--------+------+ | Tobacco [...] Visit Diagnoses Not on filedocumented in this encounter Administered Medications + +--------+ +--------+------+------+ | Medication Order | MAR | Action | Dose | Rate | Site | | | Action | Date | | | | + +--------+ +--------+------+------+ | alfentanil (ALFENTA) injection | Given | 07/20/19 | 1,000 | | | | INTRAPROCEDURE PRN, Starting Fri | | 18 9:19 | mcg | | | | 07/19/17 at 0919, Until Fri | | AM PDT | | | | | 07/19/17 at 0956 | | | | | | + +--------+ +--------+------+------+ +---+---+ | | | +---+---+ + +-------+ +------+---+---+ | dexamethasone (DECADRON) | Given | 07/20/19 | 4 mg | | | | injection intravenous, | | 18 9:30 | | | | | INTRAPROCEDURE PRN, Starting Fri | | AM PDT | | | | | 07/19/17 at 0930, Until Fri | | | | | | | 07/19/17 at 0956 | | | | | | + +-------+ +------+---+---+ +---+---+ | | | +---+---+ + +-------+ +------+---+---+ | midazolam (VERSED) injection | Given | 07/20/19 | 2 mg | | | | INTRAPROCEDURE PRN, Starting Fri | | 18 9:13 | | | | | 07/19/17 at 0913, Until Fri | | AM PDT | | | | | 07/19/17 at 0956 | | | | | | + +-------+ +------+---+---+ +---+---+ | | | +---+---+ + +-------+ +--------+---+---+ | propofol INTRAPROCEDURE PRN, | Given | 07/20/19 | 100 mg | | | | Starting 07/19/17 at 0920, | | 18 9:20 | | | | | Until 07/19/17 at 0956 | | AM PDT | | | | + +-------+ +--------+---+---+ +---+---+ | | | +---+---+ documented in this encounter"
--- OUTSIDE RECORDS SUMMARY | ~2019-09-13 | XMS | Encounter Summary ---
Demographics + + + | Address | [address] | | | [place] [address] | + + + | Home Phone | | + + + | Preferred Language | Unknown | + + + | Marital Status | | + + + | Methodist Affiliation | BIG | + + + | Race | White | + + + | Ethnic Group | Not or | + + + Author + + + | Author | [facility] | + + + | Organization | [facility] | + + + | Address | Unknown | + + + | Phone | Unavailable | + + + Support + + +---------+ + | Name | Relationship | Address | Phone | + + +---------+ + | Jade Cortez | ECON | Unknown | | + + +---------+ + Care Team Providers + +------+ + | Care Supplies Packer Name | Role | Phone | + +------+ + | Bonita Forbes MD | PCP | | + +------+ + Encounter Details +--------+---------+ + + + | Date | Type | Department | Care Team | Description | +--------+---------+ + + + | 07/29/ | Office | [facility] | Abel Aguilar MD | Dermatochalasis of | | 2018 | Visit | [place] | [address] | both upper eyelids | | | | Oculoplastics at | Blvd [place], [place] | (Primary Dx) | | | | [facility] [address] | [address] | | | | | [address] | [phone] | | | | | Eye [place] | | | | | | [facility], [facility] floor | | | | | | [place] [address] | | | | | | [phone] | | | +--------+---------+ + + + [...] upper lid blepharoplasty and ptosis repair 2013 ([place]) Plan: Reviewed po instructions F/u at [facility] eye care RTC with me prn Physician attestation: I have reviewed and edited history and oxygen therapy technician documentation, and performed all elements to above examination documentation. Abel Aguilar M.D. Senior Writer Ophthalmic Facial Plastic and Reconstructive Surgery documented in this encounter Plan of Treatment Not on filedocumented as of this encounter Visit Diagnoses + + | Diagnosis | + + | Dermatochalasis of both upper eyelids - Primary | + + documented in this encounter"
--- OUTSIDE RECORDS SUMMARY | ~2019-09-13 | XMS | Encounter Summary ---
Demographics + + + | Address | [address] [facility] | | | [place] [address] | + + + | Home Phone | | + + + | Preferred Language | Unknown | + + + | Marital Status | | + + + | Alevism Affiliation | BIG | + + + [...] Team Providers + +------+ + | Care Sap Enterprise Portal Consultant Name | Role | Phone | [...] Description | +--------+---------+ + + + | 07/19/ | Surgery | [facility] | Abel Aguilar MD | BILATERAL DIRECT | | 2018 | | [address] | [address] | BROW LIFT | | | | [facility] | [address] [place], [place] | (TEMPORAL); | | | | [place] [address] | [address] | BILATERAL UPPER LID | | | | | [phone] | BLEPHAROPLASTY (C02 | | | | | | LASER) | +--------+---------+ + + + Social History [...] and holidays, call and as k the plasma cutting machine operator to page the Eye Doctor solution manager. Return appointment date: Time: documented in this [...] | | 18 | 9 | | release(DR/EC) | | | | | | + [...] | 1 | 07/20/19 | | | nqlxhtzq-onzjylxei-o | to the both eyelid | | [...] Abel Walls | | | Maxim Aguilar. Trimmer Meat Ophthalmic Facial Plastic and | | | [...] [place] | [address] | [place], [place] | | | JENNIFER POINT OF CARE | [facility] | [address] | | | TESTS | | | | + + + + + documented in this encounter Visit Diagnoses + + | Diagnosis | + + | Dermatochalasis of both upper eyelids | + + | Brow ptosis Unspecified [...] + +---+ | | | + +---+ + +-------+ +--------+---+---+ | lactated Ringers irrigation | Given | 07/20/19 | 200 mL | | | | INTRAPROCEDURE PRN, Starting Fri | | 18 9:38 | | | | | 07/19/17 at 0938, Until Fri | | AM PDT | | | | | 07/19/17 at 0956 | | | | | | + +-------+ +--------+---+---+ + +---+ | | | + +---+ | naloxone (NARCAN) injection | | | intravenous, POSTPROCEDURE PRN, | | | Starting 07/19/17 at 1001, | | | Until 07/19/17 at 1628, | | | hypopnea | | + +---+ | | | + +---+ + +-------+ +---------+---+---+ | | Given | 07/20/19 | 1 strip | | | | lxpsilam-syxccodmu-zxqidrfaahrnf | | 18 9:38 | | | | | (MAXITROL) 3.5 mg/g-10,000 | | AM PDT | | | | | unit/g-0.1 % ophthalmic ointment | | | | | | | INTRAPROCEDURE PRN, Starting Fri | | | | | | | 07/19/17 at 0938, Until Fri | | | | | | | 07/19/17 at 0956 | | | | | | + +-------+ +---------+---+---+ +---+---+ | | | +---+---+ + +-------+ +------+---+---+ | Oculoplastics Local with | Given | 07/20/19 | 6 mL | | | | hyaluronidase: lidocaine w/ EPI | | 18 9:38 | | | | | 1%-1:871813 - bupivacaine 0.5% | | AM PDT | | | | | (1:1) - hyaluronidase 150 | | | | | | | units/mL 1 mL INTRAPROCEDURE | | | | | | | PRN, Starting Sat07/19/17 at | | | | | | | 0938, Until Sat07/19/17 at 0956 | | | | | | + +-------+ +------+---+---+ + +---+ | | | + +---+ | oxyCODONE (immediate release) | | | (ROXICODONE) tablet 5-10 mg 5-10 | | | mg, oral, NEEDED, 1 dose, | | | Starting Sat07/19/17 at 1003, | | | Until Sat07/19/17 at 1628, | | | post-op severe pain | | + +---+ | | | + +---+ + +-------+ +--------+---+---+ | proparacaine (OPHTHAINE) 0.5 % | Given | 07/20/19 | 1 drop | | | | ophthalmic drops INTRAPROCEDURE | | 18 9:38 | | | | | PRN, Starting 07/19/17 at | | AM PDT | | | | | 0938, Until Sat07/19/17 at 0956 | | | | | | + +-------+ +--------+---+---+ +---+---+ | | | +---+---+ documented in this encounter
--- OUTSIDE RECORDS SUMMARY | ~2019-09-13 | XMS | Encounter Summary ---
Demographics + + + | Address | [address] [facility] | | | [place] [address] | + + + | Home Phone [...] Team Providers + +------+ + | Care Cane Burner Name | Role | Phone | + +------+ + | Bonita Forbes MD | PCP | | + +------+ + Encounter Details +--------+ + + + + | Date | Type | Department | Care Team | Description | +--------+ + + + + | 07/19/ | Procedure | [facility] | | | | 2018 | Pass | [address] [facility] | | | | | | [facility] | | | | | | [place] [address] | | | +--------+ + + + [...]
--- OUTSIDE RECORDS SUMMARY | ~2019-09-13 | XMS | Clinical Summary ---
Demographics + + + | Address | [address] [facility] | | | [place] [address] | + + + | Home Phone [...] + + | Author | [facility] | + + + | Organization | [facility] | + + + | Address | Unknown | + + + | Phone | Unavailable | + + + Support + + +---------+ + | Name | Relationship | Address | Phone | + + +---------+ + | Jade Cortez | ECON | Unknown | | + + +---------+ + Care Team Providers + +------+ + | Care Study Coordinator Name | Role | Phone | + +------+ + | Bonita Forbes MD | PCP | | + +------+ + Source Comments NADIA is fully live on both [facility] Ambulatory and [facility] InPatient.[facility] Allergies No Known Allergies Medications + + [...] | MARGARITA | xxxxxxxx | 09/09/19 | [phone] | [address] | PPO | | | [place] | | 07-Pre | 7 | [phone] | | | | | | sent | | [place] | | | | | | | | [address] | | + +--------+ +--------+ + +------+ [...] | | al/Fam | | 1955 | [phone] | [address] | | | [place] | | | [address] ([place]) | [phone] | + +--------+ +--------+ + +
--- OUTSIDE RECORDS SUMMARY | ~2019-09-13 | XMS | Encounter Summary ---
Demographics + + + | Address | [address] [facility] | | | [place] [address] | + + + | Home Phone | | + + + | Preferred Language | Unknown | + + + | Marital Status | | + + + | Mosque Affiliation | BIG | + + + [...] Team Providers + +------+ + | Care Water Resource Project Manager Name | Role | Phone | + +------+ + | Bointa Forbes MD | PCP | | + [...] Rd | | | | | | [place], [place] | | | | | | [address] | | | +--------+ + + + [...]
--- OUTSIDE RECORDS SUMMARY | ~2019-09-13 | XMS | Encounter Summary ---
Demographics + + + | Address | [address] [facility] | | | [place] [address] | + + + | Home Phone | | + + + | Preferred Language | Unknown | + + + | Marital Status | | + + + | Yarsanism Affiliation | BIG | + + + | Race | White | + + + | Ethnic Group | Not or | + + + Author + + + | Author | [facility] | + + + | Organization | [facility] | + + + | Address | Unknown | + + + | Phone | Unavailable | + + + Support + + +---------+ + | Name | Relationship | Address | Phone | + + +---------+ + | Jade Cortez | ECON | Unknown | | + + +---------+ + Care Team Providers + +------+ + | Care Flight Engineer Performance Qualified Name | Role | Phone | + [...] Rd | | | | | | [place], [place] | | | | | | [address] | | | +--------+ + + + [...]
--- OUTSIDE RECORDS SUMMARY | ~2019-09-13 | XMS | Encounter Summary ---
Demographics + + + | Address | [address] [facility] | | | [place] [address] | + + + | Home Phone | | + + + | Preferred Language | Unknown | + + + | Marital Status | | + + + | Anglican Affiliation | BIG | + + + | Race | White | + + + | Ethnic Group | Not or | + + + Author + + + | Author | [facility] | + + + | Organization | [facility] | + + + | Address | Unknown | + + + | Phone | Unavailable | + + + Support + + +---------+ + | Name | Relationship | Address | Phone | + + +---------+ + | Jade Cortez | ECON | Unknown | | + + +---------+ + Care Team Providers + +------+ + | Care Commercial Drone Software Developer Name | Role | Phone | + [...] + + | 07/19/ | Hospital | [facility] | Abel Aguilar MD | | | 2018 | Encounter | STAY [address] [facility] | [address] | | | | | Dr Aquino [facility] | [place], [place] | | | | | [place] | [address] | | | | | [place], [place] | [phone] | | | | | [address] | [...] and holidays, call and as k the folder operator to page the Eye Doctor laborer ammunition assembly. Return appointment date: Time: documented in this [...] | 1 | 07/20/19 | | | hwxggvvw-wlniiqhmh-g | to the both eyelid | | [...] Abel Walls | | | Maxim Aguilar. Card Clothier Ophthalmic Facial Plastic and | | | [...] [place] | [address] | [place], [place] | | | TERRY RODRIGUEZ OF CARE | [address] | [address] | | | TESTS | | | [...]
--- OUTSIDE RECORDS SUMMARY | ~2019-09-13 | XMS | Encounter Summary ---
Demographics + + + | Address | [address] [facility] | | | [place] [address] | + + + | Home Phone [...] Team Providers + +------+ + | Care Physicist Cryogenics Name | Role | Phone | + +------+ + | Bonita Forbes MD | PCP | | + +------+ + Encounter Details +--------+ + + + + | Date | Type | Department | Care Team | Description | +--------+ + + + + | 07/21/ | Telephone | [facility] | Abel Aguilar MD | | | 2018 | | [place] | [address] | | | | | Oculoplastics at | vd [place], [place] | | | | | [address] | [address] | | | | | [address] | [phone] | | | | | Eye [place] | | | | | | [address] | | | | | | [place] [address] | | | | | | [phone] | | | +--------+ + + + [...]
--- OUTSIDE RECORDS SUMMARY | ~2019-09-13 | XMS | Encounter Summary ---
Demographics + + + | Address | [address] [facility] | | | [place] [address] | + + + | Home Phone [...] Team Providers + +------+ + | Care Planning Assistant Name | Role | Phone | + [...] testing | | 2018 | on | [place] | [address] | | | | | Oculoplastics at | [place], [place] | | | | | [facility] [address] | [address] | | | | | [address] | [phone] | | | | | Eye [place] | | | | | | [facility], [facility] floor | | | | | | [place] [address] | | | | | | [phone] | | | +--------+ + + + [...]
--- OUTSIDE RECORDS SUMMARY | ~2019-09-13 | XMS | Encounter Summary ---
Demographics + + + | Address | [address] [facility] | | | [place] [address] | + + + | Home Phone [...] Team Providers + +------+ + | Care Clothes Drier Repairer Name | Role | Phone | + +------+ + | Bonita Forbes MD | PCP | | + +------+ + Encounter Details +--------+ + + + + | Date | Type | Department | Care Team | Description | +--------+ + + + + | 07/21/ | Telephone | [facility] | Abel Aguilar MD | | | 2018 | | [place] | [address] | | | | | Oculoplastics at | vd [place], [place] | | | | | [address] | [address] | | | | | [address] | [phone] | | | | | Eye [place] | | | | | | [address] | | | | | | [place] [address] | | | | | | [phone] | | | +--------+ + + + [...]
--- OUTSIDE RECORDS SUMMARY | ~2019-09-13 | XMS | Encounter Summary ---
Demographics + + + | Address | [address] [facility] | | | [place] [address] | + + + | Home Phone | | + + + | Preferred Language | Unknown | + + + | Marital Status | | + + + | Muslim Affiliation | BIG | + + + | Race | White | + + + | Ethnic Group | Not or | + + + Author + + + | Author | [facility] | + + + | Organization | [facility] | + + + | Address | Unknown | + + + | Phone | Unavailable | + + + Support + + +---------+ + | Name | Relationship | Address | Phone | + + +---------+ + | Jade Cortez | ECON | Unknown | | + + +---------+ + Care Team Providers + +------+ + | Care Soap Inspector Name | Role | Phone | [...] | | [address] | [address] | BROW LIFT | | | | [facility] | Blvd [place], [place] | (TEMPORAL); | | | | [address] | [address] | BILATERAL UPPER LID | | | | | [phone] | BLEPHAROPLASTY (C02 | | | | [...] and holidays, call and as k the linter drier operator to page the Eye Doctor robotics application engineer. Return appointment date: Time: documented in [...] | 1 | 07/20/19 | | | lutjcrgj-dhcuwklmn-e | to the both eyelid | | [...] procedure: | | | 07/19/17 Attending Surgeon: Aebl Aguilar M.D. Preoperative | | | Diagnosis: [...] Abel Walls | | | Maxim Aguilar. Oracle Etl Developer Ophthalmic Facial Plastic and | | | [...] [place] | [address] | [place], [place] | | | JENNIFER POINT OF CARE | [facility] | [address] | | | TESTS | | | [...] | 1 strip | | | | wcwrmoux-jetguvmcm-qaepdsotmogwu | | 18 9:38 | | | [...] 18 9:38 | | | | | 1%-1:429031 - bupivacaine 0.5% | | AM PDT [...]
--- OUTSIDE RECORDS SUMMARY | ~2019-09-13 | XMS | Encounter Summary ---
Demographics + + + | Address | [address] | | | [place] [address] | + + + | Home Phone | | + + + | Preferred Language | Unknown | + + + | Marital Status | | + + + | Sabianist Affiliation | BIG | + + + | Race | White | + + + | Ethnic Group | Not or | + + + Author + + + | Author | [facility] | + + + | Organization | [facility] | + + + | Address | Unknown | + + + | Phone | Unavailable | + + + Support + + +---------+ + | Name | Relationship | Address | Phone | + + +---------+ + | Jade Cortez | ECON | Unknown | | + + +---------+ + Care Team Providers + +------+ + | Care Developer Designer Name | Role | Phone | + [...] Rd | | | | | | [place], [place] | | | | | | [address] | | | +--------+ + + + [...]
--- OUTSIDE RECORDS SUMMARY | ~2019-09-13 | XMS | Encounter Summary ---
Demographics + + + | Address | [address] [facility] | | | [place] [address] | + + + | Home Phone | | + + + | Preferred Language | Unknown | + + + | Marital Status | | + + + | Yarsani Affiliation | BIG | + + + | Race | White | + + + | Ethnic Group | Not or | + + + Author + + + | Author | [facility] | + + + | Organization | [facility] | + + + | Address | Unknown | + + + | Phone | Unavailable | + + + Support + + +---------+ + | Name | Relationship | Address | Phone | + + +---------+ + | Jade Cortez | ECON | Unknown | | + + +---------+ + Care Team Providers + +------+ + | Care Marketing Researcher Name | Role | Phone | + +------+ + | Bonita Forbes MD | PCP | | + +------+ + Encounter Details +--------+---------+ + + + | Date | Type | Department | Care Team | Description | +--------+---------+ + + + | 06/28/ | Office | [facility] | Abel Aguilar MD | Dermatochalasis of | | 2018 | Visit | [place] | [address] | both upper eyelids | | | | Oculoplastics at | [address]vd [place], [place] | (Primary Dx); Brow | | | | [place] [address] | [address] | ptosis | | | | [place] [address] | [phone] | | | | | Eye [place] | | | | | | [facility], [facility] floor | | | | | | [place] [address] | | | | | | [phone] | | | +--------+---------+ + + + [...] upper lid blepharoplasty and ptosis repair 2013 ([place]) Plan: Extensive discussion of options, patient wishes [...] I have reviewed and edited history and critical systems technician documentation, and performed all elements to above examination documentation. Abel Aguilar M.D. Heating Systems Installer Ophthalmic Facial Plastic and Reconstructive Surgery documented in this encou nter Plan of Treatment Not on filedocumented as of this encounter Procedures + +--------+ + + + | Procedure Name | Priori | Date/Time | Associated Diagnosis | Comments | | | ty | | | | + +--------+ + + + | HI VISUAL FIELD | Routin | 06/28/2017 | [...]
--- OUTSIDE RECORDS SUMMARY | ~2019-09-13 | XMS | Encounter Summary ---
Demographics + + + | Address | [address] [facility] [facility] | | | [place] [address] | + + + | Home Phone [...] Team Providers + +------+ + | Care Coke Production Heater Name | Role | Phone | + [...] testing | | 2018 | on | [place] | [address] | | | | | Oculoplastics at | [place], [place] | | | | | [facility] [address] | [address] | | | | | [address] | [phone] | | | | | Eye [place] | | | | | | [facility], [facility] floor | | | | | | [place] [address] | | | | | | [phone] | | | +--------+ + + + [...]
--- OUTSIDE RECORDS SUMMARY | ~2019-09-13 | XMS | Encounter Summary ---
Demographics + + + | Address | [address] [facility] [address] | | | [place] [address] | + + + | Home Phone | | + + + | Preferred Language | Unknown | + + + | Marital Status | | + + + | Hoahaoism Affiliation | BIG | + + + | Race | White | + + + | Ethnic Group | Not or | + + + Author + + + | Author | [facility] | + + + | Organization | [facility] | + + + | Address | Unknown | + + + | Phone | Unavailable | + + + Support + + +---------+ + | Name | Relationship | Address | Phone | + + +---------+ + | Jade Cortez | ECON | Unknown | | + + +---------+ + Care Team Providers + +------+ + | Care Binding End Stitcher Name | Role | Phone | + [...] [place] | | | | | [facility] | [address], | | | | | [place] [address] | [place] [address] | | | | | | [phone] | | | | | | | [...]
--- OUTSIDE RECORDS SUMMARY | ~2019-09-13 | XMS | Encounter Summary ---
Demographics + + + | Address | [address] [facility] | | | [place] [address] | + + + | Home Phone [...] Team Providers + +------+ + | Care First Aid Attendant Name | Role | Phone | + [...] Rd | | | | | | [place], [place] | | | | | | [address] | | | +--------+ + + + [...]
--- OUTSIDE RECORDS SUMMARY | ~2019-09-13 | XMS | Encounter Summary ---
Demographics + + + | Address | [address] [facility] | | | [place] [address] | + + + | Home Phone [...] + + | Author | [facility] | + + + | Organization | [facility] | + + + | Address | Unknown | + + + | Phone | Unavailable | + + + Support + + +---------+ + | Name | Relationship | Address | Phone | + + +---------+ + | Jade Cortez | ECON | Unknown | | + + +---------+ + Care Team Providers + +------+ + | Care Platinumsmith Name | Role | Phone | + [...] | | | | | | | [address] | | | | | [address] | | | | | | | [place] | | | | | | | [facility] [place] | | | | | | | [address] | | | | | | | Phone: | | | | | | | [phone] | | | | | | | Fax: | | | | | | | [phone] | +--------+--------+ + + + + Encounter Details +--------+---------+ + + + | Date | Type | Department | Care Team | Description | +--------+---------+ + + + | 06/17/ | Office | [facility] | Abel Aguilar MD | Brow ptosis (Primary | | 2018 | Visit | [place] | [address] | Dx); | | | | Oculoplastics at | [facility] [place] | Dermatochalasis of | | | | [facility] [address] | [address] | both upper eyelids | | | | [address] | [phone] | | | | | Eye [place] | | | | | | [facility], [address] [place] [address] | | | | | | [place] [address] | | | | | | [phone] | | | +--------+---------+ + + + [...] to bring CPAP on day of surgery bAel Aguilar MD - 06/17/2017 1:20 PM PDTFormatting [...] upper lid blepharoplasty and ptosis repair 2013 ([place]) Plan: Extensive discussion of options, patient wishes [...] I have reviewed and edited history and education technician documentation, and performed all elements to above examination documentation. Abel Aguilar M.D. Python Developer Ophthalmic Facial Plastic and Reconstructive Surgery documented in this encounter Plan of Treatment Not on filedocumented as of this encounter Procedures + +--------+ + + + | Procedure Name | Priori | Date/Time | Associated Diagnosis | Comments | | | ty | | | | + +--------+ + + + | NC EXTERNAL PHOTOS | Routin | 06/17/2017 | [...]
--- OUTSIDE RECORDS SUMMARY | ~2019-09-13 | XMS | Encounter Summary ---
Demographics + + + | Address | [address] [facility] [address] | | | [place] [address] | + + + | Home Phone [...] Author + + + | Author | [facility] | + + + | Organization | [facility] | + + + | Address | Unknown | + + + | Phone | Unavailable | + + + Support + + +---------+ + | Name | Relationship | Address | Phone | + + +---------+ + | Jade Cortez | ECON | Unknown | | + + +---------+ + Care Team Providers + +------+ + | Care Nuclear Equipment Operator Name | Role | Phone | [...] + + | 07/19/ | Hospital | [facility] | Abel Aguilar MD | | | 2018 | Encounter | STAY [address] [facility] | [address] | | | | | Dr [facility]ino Eye | [place], [place] | | | | | [place] | [address] | | | | | [place], [place] | [phone] | | | | | [address] | [...] and holidays, call and as k the valve machine operator to page the Eye Doctor application integrator. Return appointment date: Time: documented in this [...] | 1 | 07/20/19 | | | velqvpre-fsilpeewv-g | to the both eyelid | | [...] Abel Walls | | | Maxim Aguilar. Benzene Washer Operator Ophthalmic Facial Plastic and | | [...] [place] | [address] | [place], [place] | | | TERRY RODRIGUEZ OF CARE | [address] | [address] | | | TESTS | | | [...]
--- OUTSIDE RECORDS SUMMARY | ~2019-09-13 | XMS | Clinical Summary ---
Demographics + + + | Address | [address] [facility] | | | [place] [address] | + + + | Home Phone | | + + + | Preferred Language | Unknown | + + + | Marital Status | | + + + | Church Affiliation | BIG | + + + | Race | White | + + + | Ethnic Group | Not or | + + + Author + + + | Author | [facility] | + + + | Organization | [facility] | + + + | Address | Unknown | + + + | Phone | Unavailable | + + + Support + + +---------+ + | Name | Relationship | Address | Phone | + + +---------+ + | Jade Cortez | ECON | Unknown | | + + +---------+ + Care Team Providers + +------+ + | Care Florist Helper Name | Role | Phone | + +------+ + | Bonita Forbes MD | PCP | | + +------+ + Source Comments NADIA is fully live on both [facility] Ambulatory and [facility] InPatient.[facility] Allergies No Known Allergies Medications [...] | MARGARITA | xxxxxxxx | 09[birth year]09[birth year]19 | [phone] | [address] | [address] | | | [address] | | 07-Pre | 7 | [id number] | | | | | | sent | | [place] | | | | | | | | [address] | | + +--------+ +--------+ + +------+ [...] | | al/Fam | | 1955 | [phone] | [address] | | | [place] | | | [address] ([place]) | [phone] | + +--------+ +--------+ + +
--- OUTSIDE RECORDS SUMMARY | ~2019-09-13 | XMS | Encounter Summary ---
Demographics + + + | Address | [address] [facility] | | | [place] [address] | + + + | Home Phone [...] Team Providers + +------+ + | Care Immunochemist Name | Role | Phone | + +------+ + | Bonita Forbes MD | PCP | | + +------+ + Encounter Details +--------+ + + + + | Date | Type | Department | Care Team | Description | +--------+ + + + + | 07/19/ | Procedure | [facility] | | | | 2018 | Pass | [address] [facility] | | | | | | [facility] | | | | | | [place] [address] | | | +--------+ + + + [...]
--- OUTSIDE RECORDS SUMMARY | ~2019-09-13 | XMS | Encounter Summary ---
Demographics + + + | Address | [address] | | | [place] [address] | + + + | Home Phone | | + + + | Preferred Language | Unknown | + + + | Marital Status | | + + + | Mandaeism Affiliation | BIG | + + + | Race | White | + + + | Ethnic Group | Not or | + + + Author + + + | Author | [facility] | + + + | Organization | [facility] | + + + | Address | Unknown | + + + | Phone | Unavailable | + + + Support + + +---------+ + | Name | Relationship | Address | Phone | + + +---------+ + | Jade Cortez | ECON | Unknown | | + + +---------+ + Care Team Providers + +------+ + | Care Lease Picker Name | Role | Phone | + +------+ + | Bonita Forbes MD | PCP | | + +------+ + Encounter Details +--------+---------+ + + + | Date | Type | Department | Care Team | Description | +--------+---------+ + + + | 06/28/ | Office | [facility] | Abel Aguilar MD | Dermatochalasis of | | 2018 | Visit | [place] | [address] | both upper eyelids | | | | Oculoplastics at | Blvd [place], [place] | (Primary Dx); [place] | | | | [place] [address] | [address] | ptosis | | | | [address] | [phone] | | | | | [facility] [place] | | | | | | [facility], [facility] floor | | | | | | [place] [address] | | | | | | [phone] | | | +--------+---------+ + + + [...] this note might be different from t charelen original. Suman Cortez . is a 61 [...] upper lid blepharoplasty and ptosis repair 2013 ([place]) Plan: Extensive discussion of options, patient wishes [...] I have reviewed and edited history and optomechanical technician documentation, and performed all elements to above examination documentation. Abel Aguilar M.D. Sleeve Separator Ophthalmic Facial Plastic and Reconstructive Surgery documented in this encou nter Plan of Treatment Not on filedocumented as of this encounter Procedures + +--------+ + + + | Procedure Name | Priori | Date/Time | Associated Diagnosis | Comments | | | ty | | | | + +--------+ + + + | ND VISUAL FIELD | Routin | 06/28/2017 | [...]
--- OUTSIDE RECORDS SUMMARY | ~2019-09-13 | XMS | Encounter Summary ---
Demographics + + + | Address | [address] | | | [place] [address] | + + + | Home Phone [...] Team Providers + +------+ + | Care Corrosion Prevention Metal Sprayer Name | Role | Phone | + [...] | | | | | | | [address] | [address] | | | | | | | [place] | | | | | | | [facility] [place] | | | | | | | [address] | | | | | | | Phone: | | | | | | | [phone] | | | | | | | Fax: | | | | | | | [phone] | +--------+--------+ + + + + Encounter Details +--------+---------+ + + + | Date | Type | Department | Care Team | Description | +--------+---------+ + + + | 06/17/ | Office | [facility] | Abel Aguilar MD | Brow ptosis (Primary | | 2018 | Visit | [place] | [address] | Dx); | | | | Oculoplastics at | [facility] [place] | Dermatochalasis of | | | | [facility] [address] | [address] | both upper eyelids | | | | [address] | [phone] | | | | | [facility] [place] | | | | | | [facility], [address] [place] [address] | | | | | | [place] [address] | | | | | | [phone] | | | +--------+---------+ + + + [...] upper lid blepharoplasty and ptosis repair 2013 ([place]) Plan: Extensive discussion of options, patient wishes [...] I have reviewed and edited history and breeder service technician documentation, and performed all elements to above examination documentation. Abel Aguilar M.D. Collar Band Creaser Ophthalmic Facial Plastic and Reconstructive Surgery documented in this encounter Plan of Treatment Not on filedocumented as of this encounter Procedures + +--------+ + + + | Procedure Name | Priori | Date/Time | Associated Diagnosis | Comments | | | ty | | | | + +--------+ + + + | [facility] EXTERNAL [facility]OT[facility] | Routin | 06/17/2017 | [...]
[~2019-09-13 10:55] MED LIST changes: +CATAPRES0.2 MG PO; +CLONIDINE HCL0.2 MG PO; +COMBIVENT RESPIM4 GM INH; +DESVENLAFAXINE25 MG PO; +DESVENLAFAXINE50 MG PO; +DOXYCYCLINE HY100 MG PO; +FLONASE SENSIM5.9 ML NAS; +IPRAT-ALBUT 0.5-3 ML INH; +KETOROLAC TROME10 MG PO; +NICOTINE1 EAC1 TD; +OXYBUTYNIN CHLOR5 M1 PO; +OXYBUTYNIN CHLOR5 MG PO; +PREDNISONE20 MG PO; +QUETIAPINE FUMA50 M1 PO; +SILDENAFIL20 MG PO; +VENTOLIN HFA18 GM INH
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
--- NOTE | 2019-09-13 13:44 | EKG ---
[facility] [address] [place] [address] Signed Normal sinus rhythm Possible Left atrial enlargement Anterior infarct , age undetermined Abnormal ECG Confirmed by BRIDGETTE PALACIOS MD ([id number]) on 09/13/2019 1:44:04 PM Electronically Signed By: BRIDGETTE PALACIOS MD 09/13/19 1344 PATIENT NAME: NATIVIDAD FERMIN Electrocardiogram DATE OF : 59 PHYSICIAN: BRIDGETTE PALACIOS MD REPORT #: [id number] REPORT IS CONFIDENTIAL AND NOT TO BE RELEASED WITHOUT AUTHORIZATION
[2019-09-13] MEDS ORDERED: PREDNISONE20 MG PO (16:52)
[2019-09-13] MEDS ORDERED: NORCO 5-325 TA1 EACH PO (16:52)
== END 2019-09-13 17:25 | disposition home or self-care (01) ==
LOC: ED 10:55
DX: J44.9 Chronic obstructive pulmonary disease, unspecified (principal); M54.16 Radiculopathy, lumbar region; R09.02 Hypoxemia; R00.0 Tachycardia, unspecified; E11.9 Type 2 diabetes mellitus without complications; F41.9 Anxiety disorder, unspecified; F17.200 Nicotine dependence, unspecified, uncomplicated; Z88.8 Allergy status to other drugs, medicaments and biological substances; Z79.899 Other long term (current) drug therapy
CPT/HCPCS: 71045; 71260; 72100; 73502; 80053; 83735; 84484; 85025; 93005; 93010; 94640; 99285-25; J1100; J1200; J1885; J2270; J2405; J3010; Q9967

== ENCOUNTER 2019-09-25 16:54 | Inpatient (IN) | payer OTHER ==
[~2019-09-25] VITALS: Ht 165.1 cm; Wt 88.0 kg
--- OUTSIDE RECORDS SUMMARY | ~2019-09-25 | XMS | Encounter Summary ---
Demographics + + + | Address | [address] | | | [place] [address] | + + + | Home Phone | | + + + | Preferred Language | Unknown | + + + | Marital Status | | + + + | Christian Affiliation | BIG | + + + | Race | White | + + + | Ethnic Group | Not or | + + + Author + + + | Author | [facility] | + + + | Organization | [facility] | + + + | Address | Unknown | + + + | Phone | Unavailable | + + + Support + + +---------+ + | Name | Relationship | Address | Phone | + + +---------+ + | Jade Cortez | ECON | Unknown | | + + +---------+ + Care Team Providers + +------+ + | Care Production Line Mechanic Name | Role | Phone | + +------+ + | Bonita Forbes MD | PCP | | + +------+ + Encounter Details +--------+ + + + + | Date | Type | Department | Care Team | Description | +--------+ + + + + | 07/23/ | Document-Sc | UNKNOWN DEPARTMENT | Unknown . | | | 2018 | anned | [address] | | | | [address] | | | | | | [place], [place] | | | | | | [address] | | | +--------+ + + + [...] Smokeless Tobacco: | | | | | Current User | | | | + +---+---+---+ + + | Comments: vape | + + + + +---------+ + | Alcohol Use | Drinks/Week | oz/Week | Comments | + + +---------+ + | No | | | | + + +---------+ + + + + | Sex Assigned at [...]
--- OUTSIDE RECORDS SUMMARY | ~2019-09-25 | XMS | Encounter Summary ---
Demographics + + + | Address | [address] | | | [place] [address] | + + + | Home Phone | | + + + | Preferred Language | Unknown | + + + | Marital Status | | + + + | Sabianism Affiliation | BIG | + + + | Race | White | + + + | Ethnic Group | Not or | + + + Author + + + | Author | [facility] | + + + | Organization | [facility] | + + + | Address | Unknown | + + + | Phone | Unavailable | + + + Support + + +---------+ + | Name | Relationship | Address | Phone | + + +---------+ + | Jade Cortez | ECON | Unknown | | + + +---------+ + Care Team Providers + +------+ + | Care Staffing Specialist Name | Role | Phone | + +------+ + | Bonita Forbes MD | PCP | | + +------+ + Reason for Visit + + + | Reason | Comments | + + + | Pre-Admission | | + + + Encounter Details +--------+ + + + + | Date | Type | Department | Care Team | Description | +--------+ + + + + | 06/18/ | PreAdmit | [facility] | Abel Aguilar MD | Pre-Admission | | 2018 | Orders | [place] | [address] | | | | | Oculoplastics at | Blvd [place], [place] | | | | | [place] [address] | [address] | | | | | [address] | [phone] | | | | | [facility] [place] | | | | | | [facility], 5th floor | | | | | | [place] [address] | | | | | | [phone] | | | +--------+ + + + [...] filedocumented as of this encounter Visit Diagnoses + + | Diagnosis | + + | Degenerative disorder of eyelid - Primary Unspecified degenerative disorder of eyelid | + + documented in this encounter"
--- OUTSIDE RECORDS SUMMARY | ~2019-09-25 | XMS | Encounter Summary ---
Demographics + + + | Address | [address] | | | [place] [address] | + + + | Home Phone | | + + + | Preferred Language | Unknown | + + + | Marital Status | | + + + | Mormonism Affiliation | BIG | + + + | Race | White | + + + | Ethnic Group | Not or | + + + Author + + + | Author | [facility] | + + + | Organization | [facility] | + + + | Address | Unknown | + + + | Phone | Unavailable | + + + Support + + +---------+ + | Name | Relationship | Address | Phone | + + +---------+ + | Jade Cortez | ECON | Unknown | | + + +---------+ + Care Team Providers + +------+ + | Care Molded Goods Spot Picker Name | Role | Phone | + +------+ + | Bonita Forbes MD | PCP | | + +------+ + Reason for Visit AUTH/CERT +--------+--------+ + + + + | Status | Reason | Specialty | Diagnoses / | Referred By | Referred To | | | | | Procedures | Contact | Contact | +--------+--------+ + + + + | | | | | | | +--------+--------+ + + + + Encounter Details +--------+ + + + + | Date | Type | Department | Care Team | Description | +--------+ + + + + | 07/19/ | Hospital | [facility] | Abel Aguilar MD | | | 2018 | Encounter | [facility] [address] [facility] | [address] | | | | | [address] [facility] | [place], [place] | | | | | Kely Sween[place] | [address] | | | | | [place], [place] | [phone] | | | | | [address] | | | +--------+ + + + [...] + + documented as of this encounter Last Filed Vital Signs + + + + + | Vital Sign | Reading | Time Taken | Comments | + + + + + | Blood Pressure | 147/95 | 07/19/2017 10:20 AM | | | | | PDT | | + + + + + | Pulse | 78 | 07/19/2017 10:20 AM | | | | | PDT | | + + + + + | Temperature | 36.7 C (98.1 F) | 07/19/2017 10:20 AM | | | | | PDT | | + + + + + | Respiratory Rate | 16 | 07/19/2017 10:20 AM | | | | | PDT | | + + + + + | Oxygen Saturation | 96% | 07/19/2017 10:20 AM | | | | | PDT | | + + + + + | Inhaled Oxygen | - | - | | | Concentration | | | | + + + + + | Weight | 88.5 kg (195 lb) | 07/19/2017 7:49 AM | | | | | PDT | | + + + + + | Height | 165.1 cm (5' 5") | 07/19/2017 7:49 AM | | | | | PDT | | + + + + + | Body Mass Index | 32.45 | 07/19/2017 7:49 AM | | | | | PDT | | + + + + + documented in this encounter Discharge Instructions Instructions Vera Kincaid RN - 07/19/2017Home Care after Eyelid Surgery Do not drive, drink alcoholic beverages, sign legal documents or make major decisions [place] the next 24 hours. Call your doctor if you notice any unusual symptoms. Remember: You are under the influence of medications. You may resume your normal diet and medications. Caring for Your Eyelid(s) Use ice packs intermittently (10 min. on and 10 min. off) as much as possible for the ne xt 72 hours when awake. Dressing Wear the eye murphy at night for two weeks Eye Medication Apply eye ointment in both eyes twice a day Apply ointment to suture line twice a day To help prevent infection: ? Always wash your hands before caring for your eyes or using eye medicine. ? Do not touch any part of your eye skin with the tip of the eye medicine bottle or tube. Avoid the following Rubbing your eye Do not lift anything over 20 lbs Swimming Sports or heavy exercise Eye makeup or lotions around eyes Dust, dirt or sand into the operated area Other Things to Remember Sleep on 2-3 pillows for the next week to minimize swelling Avoid direct sunlight. Wear a wide-brimmed hat or sunglasses if you must go in the sun. Do not use any aspirin, aspirin containing products or anti-inflammatory medications Call your doctor if Temperature above 101 degrees (fever) Purulent drainage (which is drainage that is whitish-laureano or greenish in color) from the surgical site If there is increased redness at the edges of the surgical site Increased pain, even with pain medication Increasing pain, swelling or redness Any visual changes, some blurring is normal Extreme swelling, some swelling is normal How to reach your doctor Saturday through Saturday, 8am-5pm, call All other hours including after hours, weekends and holidays, call and as k the haulage engine operator to page the Eye Doctor zoning engineer. Return appointment date: Time: documented in this encounter Medications at Time of Discharge + + + +---------+ + + | Medication | Sig | Dispensed | Refills | Start | End Date | | | | | | Date | | + + + +---------+ + + | | Take 1 tablet by | 10 | 0 | 07/20/19 | | | HYDROcodone-acetamin | mouth every four | tablet | | 18 | | | ophen 5-325 mg oral | hours as needed for | | | | | | tablet | severe pain. Do not | | | | | | | exceed 3000mg | | | | | | | acetaminophen in a | | | | | | | 24 hour period | | | | | + + + +---------+ + + | busPIRone 15 mg | Take by mouth. | | 0 | 06/20/19 | | | oral tablet | | | | 18 | 9 | + + + +---------+ + + | cyanocobalamin | Inject into the | | 0 | 04/26/19 | | | 1,000 mcg/mL | muscle (IM). | | | 18 | 9 | | injection solution | | | | | | + + + +---------+ + + | DULoxetine 60 mg | Take by mouth. | | 0 | 05/15/19 | | | oral capsule,delayed | | | | 18 | 9 | | release(/MINGO) | | | | | | + + + +---------+ + + | glipiZIDE 10 mg | Take by mouth. | | 0 | 02/15/20 | | | oral tablet | | | | 17 | 8 | + + + +---------+ + + | metFORMIN 1,000 mg | Take by mouth. | | 0 | 08/25/19 | | | oral tablet | | | | 17 | 8 | + + + +---------+ + + | | Apply a thin ribbon | 3.5 g | 1 | 07/20/19 | | | ufxrrujp-tdjegljee-i | to the both eyelid | | | 18 | 8 | | examethasone 3.5 | incisions twice | | | | | | mg/g-10,000 | daily. OK to use in | | | | | | unit/g-0.1 % | the eyes as needed | | | | | | ophthalmic (eye) | for irritation. | | | | | | ointment | | | | | | + + + +---------+ + + | oxybutynin 5 mg | Take by mouth. | | 0 | 01/11/20 | | | oral tablet | | | | 17 | 8 | + + + +---------+ + + | pantoprazole 40 mg | Take by mouth. | | 0 | 05/29/19 | | | oral tablet,delayed | | | | 18 | 8 | | release (DR/EC) | | | | | | + + + +---------+ + + | pramipexole 0.125 | Take by mouth. | | 0 | 01/16/20 | | | mg oral tablet | | | | 17 | 8 | + + + +---------+ + + | predniSONE 20 mg | Take 1 tablet by | | 0 | 01/16/20 | | | oral tablet | mouth daily for 5 to | | | 17 | 8 | | | 10 days for COPD | | | | | | | exacerbation | | | | | + + + +---------+ + + | QUEtiapine 25 mg | Take one-half to 1 | | 0 | 03/15/19 | | | oral tablet | tablet by mouth | | | 18 | 8 | | | three times a day as | | | | | | | needed for anxiety | | | | | + + + +---------+ + + | simvastatin 40 mg | Take by mouth. | | 0 | 03/25/19 | | | oral tablet | | | | 18 | 9 | + + + +---------+ + + | testosterone | INJECT 100MG (0.5ML) | | 0 | 06/11/19 | | | cypionate | INTRAMUSCULARLY | | | 18 | 8 | | (DEPO-TESTOSTERONE) | EVERY WEEK. | | | | | | 200 mg/mL | | | | | | | intramuscular oil | | | | | | + + + +---------+ + + | traZODone 50 mg | Take by mouth. | | 0 | 05/15/19 | | | oral tablet | | | | 18 | 9 | + + + +---------+ + + documented as of this encounter Plan of Treatment Not on filedocumented as of this encounter Procedures + +--------+ + + + | Procedure Name | Priori | Date/Time | Associated Diagnosis | Comments | | | ty | | | | + +--------+ + + + | PROCEDURE NOTE | Routin | 07/19/2017 | | Results for this | | | e | 9:55 AM | | procedure are in the | | | | PDT | | results section. | + +--------+ + + + | PRETRICHIAL BROWLIFT | Electi | 07/19/2017 | Dermatochalasis of | | | WITH BLEPHAROPLASTY | ve | 9:15 AM | both upper eyelids | | | | Surgic | PDT | Brow ptosis | | | | al | | | | + +--------+ + + + | CAPILLARY BLOOD | Routin | 07/19/2017 | | Results for this | | GLUCOSE (NO CHG), | e | 7:55 AM | | procedure are in the | | POC | | PDT | | results section. | + +--------+ + + + documented in this encounter Results PROCEDURE NOTE (07/19/2017 9:55 AM PDT) + + + | Narrative | Performed At | + + + | Abel Aguilar MD 07/19/2017 9:55 AM Date of procedure: | | | 07/19/17 Attending Surgeon: Abel Aguilar M.D. Preoperative | | | Diagnosis: 1. Bilateral brow ptosis 2. Bilateral upper lid | | | dermatochalasis Postoperative Diagnosis: 1. Bilateral brow | | | ptosis 2. Bilateral upper lid dermatochalasis Procedure: 1. | | | Bilateral direct brow lift 2. Bilateral upper lid blepharoplasty | | | Anesthesia: Local infiltration of a 1:1 mixture of 2% lidocaine with | | | epinephrine 1:100,000 and 0.5% Marcaine with Monitored Anesthesia | | | Care Estimated Blood Loss: Minimal Complications: None | | | Specimens: none Indications: This is a patient with bilateral | | | brow ptosis and upper lid dermatochalasis interfering with vision. | | | The procedure, alternatives and risks were discussed with the | | | patient at length, and the patient decided to proceed with surgery | | | as described below. The potential for prominent, permanent forehead | | | scars was discussed at length with the patient. Procedure: | | | Prior to the procedure, the operative plan and correct site were | | | confirmed by the surgeon. The patient was placed in the supine | | | position on the operating table. Attention was directed to the | | | temporal aspect of the brows, where a skin marking pen was used to | | | santana a supraciliary incision, and to the upper lids, where the | | | natural lid crease was marked. The amount of skin to be removed was | | | judged a ellipse was marked on each side. These areas were | | | infiltrated with the above named local anesthetic solution. | | | Attention was first directed to the left brow, where a #15 blade was | | | used to incise the skin as marked. A sharp scissors was used to | | | excise a skin-fat flap, and meticulous hemostasis was maintained at | | | all times with judicious use of the cautery. Dissection continued | | | down to the orbital rim, where the arcus marginalis was released, | | | permitting elevation of the brow. The brow was lifted and secured to | | | the periosteum of the forehead with multiple 5-0 vicryl sutures. | | | The wound was then closed with multiple interrupted 5-0 vicryl | | | sutures in a layered, buried fashion. The skin was then closed with | | | a running horizontal mattress 5-0 fast absorbing gut suture to sendy | | | the wound edges. Attention was then directed to the right brow, | | | where a #15 blade was used to incise the skin as marked. A sharp | | | scissors was used to excise a skin-fat flap, and meticulous | | | hemostasis was maintained at all times with judicious use of the | | | cautery.Dissection continued down to the orbital rim, where the | | | arcus marginalis was released, permitting elevation of the brow. The | | | brow was lifted and secured to the periosteum of the forehead with | | | multiple 5-0 vicryl sutures. The wound was then closed with | | | multiple interrupted 5-0 vicryl sutures in a layered, buried | | | fashion. The skin was then closed with a running horizontal mattress | | | 5-0 fast absorbing gut suture to sendy the wound edges. This | | | provided a nice symmetric elevation of the brows. Attention was | | | then directed to the right and left upper lids, where the amount of | | | skin to be removed with the blepharoplasty was marked using a | | | calipers. Attention was first directed to the right upper lid, | | | where the skin incisions were made with a #15 Bard-marco a blade. A | | | high-temperature cautery unit was used to excise a skin-muscle | | | flap, and meticulous hemostasis was maintained with judicious use of | | | the cautery. The orbital septum was incised,, and the central and | | | nasal fat pads were conservatively debulked. After meticulous | | | hemostasis was confirmed, the skin was closed with a running 5-0 | | | fast absorbing gut suture. Attention was then directed to the | | | left upper lid where the skin incisions were made with a #15 | | | Bard-marco a blade. A high-temperature cautery unit was used to | | | excise a skin-muscle flap, and meticulous hemostasis was maintained | | | with judicious use of the cautery. The orbital septum was incised, | | | and the central and nasal fat pads were conservatively debulked. | | | After meticulous hemostasis was confirmed, the skin was closed with | | | a running 5-0 fast absorbing gut suture. The drapes were | | | removed, surgical area cleaned, and ophthalmic ointment was applied | | | to the wounds. The patient was awakened and transported to the | | | recovery room, having tolerated the procedure well. Abel Walls | | | Maxim Aguilar. Rope Silica Machine Operator Ophthalmic Facial Plastic and | | | Reconstructive Surgery | | + + + CAPILLARY BLOOD GLUCOSE (NO CHG), POC (07/19/2017 7:55 AM PDT) + +---------+ + + + | Component | Value | Ref Range | Performed | Pathologist | | | | | At | Signature | + +---------+ + + + | BLOOD | 108 (H) | 70 - 99 mg/dL | [facility] | | | GLUCOSE, | | | [facility] | | | POC | | | [facility] | | | | | | [facility] CARE | | | | | | TESTS | | + +---------+ + + + + + | Specimen | + + | | + + + + + + + | Performing | Address | City/State/Zipcode | Phone Number | | Organization | | | | + + + + + | [facility] | [address] | [place], [place] | | | [facility] | [address] | [address] | | | TESTS | | | | + + + + + documented in this encounter Visit Diagnoses + + | Diagnosis | + + | Degenerative disorder of eyelid Unspecified degenerative disorder of eyelid | + + documented in this encounter Administered Medications + +--------+---------+------+------+------+ | Medication Order | MAR | Action | Dose | Rate | Site | | | Action | Date | | | | + +--------+---------+------+------+------+ + +---+ | HYDROcodone-acetaminophen | | | (NORCO) 5-325 mg tablet 1-2 | | | tablet 1-2 tablet, oral, | | | NEEDED, 1 dose, Starting Fri | | | 07/19/17 at 1003, Until Fri | | | 07/19/17 at 1628, post-op moderate | | | pain | | + +---+ | | | + +---+ | naloxone (NARCAN) injection | | | intravenous, POSTPROCEDURE PRN, | | | Starting Sat07/19/17 at 1001, | | | Until Sat07/19/17 at 1628, | | | hypopnea | | + +---+ | | | + +---+ | oxyCODONE (immediate release) | | | (ROXICODONE) tablet 5-10 mg 5-10 | | | mg, oral, NEEDED, 1 dose, | | | Starting Sat07/19/17 at 1003, | | | Until Sat07/19/17 at 1628, | | | post-op severe pain | | + +---+ | | | + +---+ documented in this encounter
--- OUTSIDE RECORDS SUMMARY | ~2019-09-25 | XMS | Encounter Summary ---
Demographics + + + | Address | [address] | | | [place] [address] | + + + | Home Phone | | + + + | Preferred Language | Unknown | + + + | Marital Status | | + + + | Yazidism Affiliation | BIG | + + + | Race | White | + + + | Ethnic Group | Not or | + + + Author + + + | Author | [facility] | + + + | Organization | [facility] | + + + | Address | Unknown | + + + | Phone | Unavailable | + + + Support + + +---------+ + | Name | Relationship | Address | Phone | + + +---------+ + | Jade Cortez | ECON | Unknown | | + + +---------+ + Care Team Providers + +------+ + | Care Thermal Cutter Helper Name | Role | Phone | + [...] testing | | 2018 | on | [place] | [address] | | | | | Oculoplastics at | [place], [place] | | | | | [facility] [address] | [address] | | | | | [address] | [phone] | | | | | [facility] [place] | | | | | | [facility], [facility] floor | | | | | | [place] [address] | | | | | | [phone] | | | +--------+ + + + [...]
--- OUTSIDE RECORDS SUMMARY | ~2019-09-25 | XMS | Encounter Summary ---
Demographics + + + | Address | [address] | | | [place] [address] | + + + | Home Phone | | + + + | Preferred Language | Unknown | + + + | Marital Status | | + + + | Moravian Affiliation | BIG | + + + | Race | White | + + + | Ethnic Group | Not or | + + + Author + + + | Author | [facility] | + + + | Organization | [facility] | + + + | Address | Unknown | + + + | Phone | Unavailable | + + + Support + + +---------+ + | Name | Relationship | Address | Phone | + + +---------+ + | Jade Cortez | ECON | Unknown | | + + +---------+ + Care Team Providers + +------+ + | Care Bin Filler Name | Role | Phone | + [...] testing | | 2018 | on | [place] | [address] | | | | | Oculoplastics at | [place], [place] | | | | | [facility] [address] | [address] | | | | | [address] | [phone] | | | | | [facility] [place] | | | | | | [facility], [facility] floor | | | | | | [place] [address] | | | | | | [phone] | | | +--------+ + + + [...]
--- OUTSIDE RECORDS SUMMARY | ~2019-09-25 | XMS | Encounter Summary ---
Demographics + + + | Address | [address] | | | [place] [address] | + + + | Home Phone | | + + + | Preferred Language | Unknown | + + + | Marital Status | | + + + | Faith Affiliation | BIG | + + + | Race | White | + + + | Ethnic Group | Not or | + + + Author + + + | Author | [facility] | + + + | Organization | [facility] | + + + | Address | Unknown | + + + | Phone | Unavailable | + + + Support + + +---------+ + | Name | Relationship | Address | Phone | + + +---------+ + | Jade Cortez | ECON | Unknown | | + + +---------+ + Care Team Providers + +------+ + | Care Fitter Up Name | Role | Phone | + +------+ + | Bonita Forbes MD | PCP | | + +------+ + Encounter Details +--------+ + + + + | Date | Type | Department | Care Team | Description | +--------+ + + + + | 06/27/ | Document-Sc | UNKNOWN DEPARTMENT | Unknown . | | | 2018 | anned | [address] | | | | [address] | | | | | | [place], [place] | | | | | | [address] | | | +--------+ + + + [...]
--- OUTSIDE RECORDS SUMMARY | ~2019-09-25 | XMS | Encounter Summary ---
Demographics + + + | Address | [address] | | | [place] [address] | + + + | Home Phone | | + + + | Preferred Language | Unknown | + + + | Marital Status | | + + + | Bahai Affiliation | BIG | + + + | Race | White | + + + | Ethnic Group | Not or | + + + Author + + + | Author | [facility] | + + + | Organization | [facility] | + + + | Address | Unknown | + + + | Phone | Unavailable | + + + Support + + +---------+ + | Name | Relationship | Address | Phone | + + +---------+ + | Jade Cortez | ECON | Unknown | | + + +---------+ + Care Team Providers + +------+ + | Care Ginger Farmer Name | Role | Phone | + +------+ + | Bonita Forbes MD | PCP | | + +------+ + Encounter Details +--------+---------+ + + + | Date | Type | Department | Care Team | Description | +--------+---------+ + + + | 06/28/ | Office | [facility] | Abel Aguilar MD | Dermatochalasis of | | 2018 | Visit | [facility] [employer] [facility] | [address] | both upper eyelids | | | | Oculoplastics at | [place] [place], [place] | (Primary Dx); Brow | | | | [place] [address] | [address] | ptosis | | | | [address] | [phone] | | | | | Eye [facility] | | | | | | [facility], [facility] floor | | | | | | [place] [address] | | | | | | [phone] | | | +--------+---------+ + + + [...] upper lid blepharoplasty and ptosis repair 2013 ([place]) Plan: Extensive discussion of options, patient wishes [...] I have reviewed and edited history and electrical instrument technician documentation, and performed all elements to above examination documentation. Abel Aguilar M.D. [facility] Ophthalmic Facial Plastic and Reconstructive Surgery documented in this encou nter Plan of Treatment Not on filedocumented as of this encounter Procedures + +--------+ + + + | Procedure Name | Priori | Date/Time | Associated Diagnosis | Comments | | | ty | | | | + +--------+ + + + | CT VISUAL FIELD | Routin | 06/28/2017 | [...]
--- OUTSIDE RECORDS SUMMARY | ~2019-09-25 | XMS | Encounter Summary ---
Demographics + + + | Address | [address] | | | [place] [address] | + + + | Home Phone | | + + + | Preferred Language | Unknown | + + + | Marital Status | | + + + | Faith Affiliation | BIG | + + + | Race | White | + + + | Ethnic Group | Not or | + + + Author + + + | Author | [facility] | + + + | Organization | [facility] | + + + | Address | Unknown | + + + | Phone | Unavailable | + + + Support + + +---------+ + | Name | Relationship | Address | Phone | + + +---------+ + | Jade Cortez | ECON | Unknown | | + + +---------+ + Care Team Providers + +------+ + | Care Bench Press Operator Name | Role | Phone | [...] [address] [place] | | | | | [facility] | [address], | | | | | [place] [address] | [place] [address] | | | | | | [phone] | | | | | | | [...]
--- OUTSIDE RECORDS SUMMARY | ~2019-09-25 | XMS | Encounter Summary ---
Demographics + + + | Address | [address] | | | [place] [address] | + + + | Home Phone [...] + + + | Author | [facility] | + + + | Organization | [facility] | + + + | Address | Unknown | + + + | Phone | Unavailable | + + + Support + + +---------+ + | Name | Relationship | Address | Phone | + + +---------+ + | Jade Cortez | ECON | Unknown | | + + +---------+ + Care Team Providers + +------+ + | Care Thermodynamics Engineer Name | Role | Phone | + [...] | | [address] | [address] | BROW LIFT | | | | [facility] | [address] [place], [place] | (TEMPORAL); | | | | [place] [address] | [address] | BILATERAL UPPER LID | | | | | [phone] | BLEPHAROPLASTY (C02 | | | | [...] and holidays, call and as k the electrolog operator to page the Eye Doctor national flatbed truck driver. Return appointment date: Time: documented in this [...] | 1 | 07/20/19 | | | [id number] | to the both eyelid | | [...] Abel Walls | | | Maxim Aguilar. Technical Engineer Ophthalmic Facial Plastic and | | | [...] [facility] | [address] | [place], [place] | | | [facility] | [facility] | [address] | | | TESTS | | | [...] | 1 strip | | | | [id number] | | 18 9:38 | | | [...] 18 9:38 | | | | | 1%-[id number] - bupivacaine 0.5% | | AM PDT [...]
--- OUTSIDE RECORDS SUMMARY | ~2019-09-25 | XMS | Encounter Summary ---
Demographics + + + | Address | [address] | | | [place] [address] | + + + | Home Phone | | + + + | Preferred Language | Unknown | + + + | Marital Status | | + + + | Adventist Affiliation | BIG | + + + | Race | White | + + + | Ethnic Group | Not or | + + + Author + + + | Author | [facility] | + + + | Organization | [facility] | + + + | Address | Unknown | + + + | Phone | Unavailable | + + + Support + + +---------+ + | Name | Relationship | Address | Phone | + + +---------+ + | Jade Cortez | ECON | Unknown | | + + +---------+ + Care Team Providers + +------+ + | Care Application Support Intern Name | Role | Phone | + +------+ + | Bonita Forbes MD | PCP | | + +------+ + Encounter Details +--------+---------+ + + + | Date | Type | Department | Care Team | Description | +--------+---------+ + + + | 07/29/ | Office | [facility] | Abel Aguilar MD | Dermatochalasis of | | 2018 | Visit | [place] | [address] | both upper eyelids | | | | Oculoplastics at | Blvd [place], [place] | (Primary Dx) | | | | [facility] [address] | [address] | | | | | [address] | [phone] | | | | | Eye [place] | | | | | | [facility] floor | | | | | | [place] [address] | | | | | | [phone] | | | +--------+---------+ + + + [...] upper lid blepharoplasty and ptosis repair 2013 ([place]) Plan: Reviewed po instructions F/u at [facility] eye care RTC with me prn Physician attestation: I have reviewed and edited history and ict support technicians documentation, and performed all elements to above examination documentation. Abel Aguilar M.D. Produce Service Team Member Ophthalmic Facial Plastic and Reconstructive Surgery documented in this encounter Plan of Treatment Not on filedocumented as of this encounter Visit Diagnoses + + | Diagnosis | + + | Dermatochalasis of both upper eyelids - Primary | + + documented in this encounter"
--- OUTSIDE RECORDS SUMMARY | ~2019-09-25 | XMS | Clinical Summary ---
Demographics + + + | Address | [address] | | | [place] [address] | + + + | Home Phone [...] + + | Author | [facility] | + + + | Organization | [facility] | + + + | Address | Unknown | + + + | Phone | Unavailable | + + + Support + + +---------+ + | Name | Relationship | Address | Phone | + + +---------+ + | Jade Cortez | ECON | Unknown | | + + +---------+ + Care Team Providers + +------+ + | Care Automobile Club Information Clerk Name | Role | Phone | + +------+ + | Bonita Forbes MD | PCP | | + +------+ + Source Comments NADIA is fully live on both [facility] Ambulatory and [facility] InPatient.[facility] Allergies No Known Allergies Medications + + [...] | MARGARITA | xxxxxxxx | 09/09/19 | [phone] | [address] | PPO | | | [employer] | | 07-Pre | 7 | [phone] | | | | | | sent | | [place] | | | | | | | | [address] | | + +--------+ +--------+ + +------+ [...] | | al/Fam | | 1955 | [phone] | [address] | | | j[place]athon | | | 8 ([place]) | [address] | + +--------+ +--------+ + +
--- OUTSIDE RECORDS SUMMARY | ~2019-09-25 | XMS | Encounter Summary ---
Demographics + + + | Address | [address] | | | [place] [address] | + + + | Home Phone | | + + + | Preferred Language | Unknown | + + + | Marital Status | | + + + | Yarsani Affiliation | BIG | + + + | Race | White | + + + | Ethnic Group | Not or | + + + Author + + + | Author | [facility] | + + + | Organization | [facility] | + + + | Address | Unknown | + + + | Phone | Unavailable | + + + Support + + +---------+ + | Name | Relationship | Address | Phone | + + +---------+ + | Jade Cortez | ECON | Unknown | | + + +---------+ + Care Team Providers + +------+ + | Care Locomotive Observer Name | Role | Phone | + [...] | | | | | | | [address] | | | | | | | [address] | | | | | | | [place] | | | | | | | [facility] [place] | | | | | | | [address] | | | | | | | Phone: | | | | | | | [phone] | | | | | | | Fax: | | | | | | | [phone] | +--------+--------+ + + + + Encounter Details +--------+---------+ + + + | Date | Type | Department | Care Team | Description | +--------+---------+ + + + | 06/17/ | Office | [facility] | Abel Aguilar MD | Brow ptosis (Primary | | 2018 | Visit | [place] | [address] | Dx); | | | | Oculoplastics at | [facility] [place] | Dermatochalasis of | | | | [facility] [address] | [address] | both upper eyelids | | | | [address] | [phone] | | | | | Eye [place] | | | | | | [facility], [address] [place] [address] | | | | | | [place] [address] | | | | | | [phone] | | | +--------+---------+ + + + [...] upper lid blepharoplasty and ptosis repair 2013 ([place]) Plan: Extensive discussion of options, patient wishes [...] I have reviewed and edited history and install and repair technician documentation, and performed all elements to above examination documentation. Abel Aguilar M.D. Printing Machine Operator Tape Rules Ophthalmic Facial Plastic and Reconstructive Surgery documented in this encounter Plan of Treatment Not on filedocumented as of this encounter Procedures + +--------+ + + + | Procedure Name | Priori | Date/Time | Associated Diagnosis | Comments | | | ty | | | | + +--------+ + + + | MS EXTERNAL PHOTOS | Routin | 06/17/2017 | [...]
--- OUTSIDE RECORDS SUMMARY | ~2019-09-25 | XMS | Encounter Summary ---
Demographics + + + | Address | [address] | | | [place] [address] | + + + | Home Phone | | + + + | Preferred Language | Unknown | + + + | Marital Status | | + + + | Yazidism Affiliation | BIG | + + + | Race | White | + + + | Ethnic Group | Not or | + + + Author + + + | Author | [facility] | + + + | Organization | [facility] | + + + | Address | Unknown | + + + | Phone | Unavailable | + + + Support + + +---------+ + | Name | Relationship | Address | Phone | + + +---------+ + | Jade Cortez | ECON | Unknown | | + + +---------+ + Care Team Providers + +------+ + | Care Independent Contractor Name | Role | Phone | + +------+ + | Bonita Forbes MD | PCP | | + +------+ + Encounter Details +--------+---------+ + + + | Date | Type | Department | Care Team | Description | +--------+---------+ + + + | 07/29/ | Office | [facility] | Abel Aguilar MD | Dermatochalasis of | | 2018 | Visit | [place] | [address] | both upper eyelids | | | | Oculoplastics at | Blvd [place], [place] | (Primary Dx) | | | | [facility] [address] | [address] | | | | | [address] | [phone] | | | | | Eye [place] | | | | | | [facility] floor | | | | | | [place] [address] | | | | | | [phone] | | | +--------+---------+ + + + [...] upper lid blepharoplasty and ptosis repair 2013 ([place]) Plan: Reviewed po instructions F/u at [facility] eye care RTC with me prn Physician attestation: I have reviewed and edited history and geotechnicial properties technician documentation, and performed all elements to above examination documentation. Abel Aguilar M.D. Automatic Hemmer Ophthalmic Facial Plastic and Reconstructive Surgery documented in this encounter Plan of Treatment Not on filedocumented as of this encounter Visit Diagnoses + + | Diagnosis | + + | Dermatochalasis of both upper eyelids - Primary | + + documented in this encounter"
--- OUTSIDE RECORDS SUMMARY | ~2019-09-25 | XMS | Encounter Summary ---
Demographics + + + | Address | [address] | | | [place] [address] | + + + | Home Phone [...] + + + | Author | [facility] | + + + | Organization | [facility] | + + + | Address | Unknown | + + + | Phone | Unavailable | + + + Support + + +---------+ + | Name | Relationship | Address | Phone | + + +---------+ + | Jade Cortez | ECON | Unknown | | + + +---------+ + Care Team Providers + +------+ + | Care Medical Aide Name | Role | Phone | + [...] [address] | | | | | | [place], [place] | | | | | | [address] | | | +--------+ + + + [...]
--- OUTSIDE RECORDS SUMMARY | ~2019-09-25 | XMS | Encounter Summary ---
Demographics + + + | Address | [address] | | | [place] [address] | + + + | Home Phone | | + + + | Preferred Language | Unknown | + + + | Marital Status | | + + + | Caodaism Affiliation | BIG | + + + | Race | White | + + + | Ethnic Group | Not or | + + + Author + + + | Author | [facility] | + + + | Organization | [facility] | + + + | Address | Unknown | + + + | Phone | Unavailable | + + + Support + + +---------+ + | Name | Relationship | Address | Phone | + + +---------+ + | Jade Cortez | ECON | Unknown | | + + +---------+ + Care Team Providers + +------+ + | Care Die Repairer Stamping Name | Role | Phone | + [...] + + | 07/19/ | Hospital [facility] | Abel Aguilar MD | | | 2018 | Encounter | STAY [address] [facility] | [address] | | | | | Dr Aquino Eye | [place], [place] | | | | | [place] | [address] | | | | | [place], [place] | [phone] | | | | | [address] | [...] and holidays, call and as k the chlorine plant operator to page the Eye Doctor electronic scale assembler and tester. Return appointment date: Time: documented in this [...] | 1 | 07/20/19 | | | [id number]-[id number]-h | to the both eyelid | | [...] Abel Walls | | | Maxim Aguilar. Slurry Man Ophthalmic Facial Plastic and | | | [...] [place] | [address] | [place], [place] | | | TERRY RODRIGUEZ OF CARE | [address] | [address] | | | TESTS | | | [...]
--- OUTSIDE RECORDS SUMMARY | ~2019-09-25 | XMS | Encounter Summary ---
Demographics + + + | Address | [address] | | | [place] [address] | + + + | Home Phone | | + + + | Preferred Language | Unknown | + + + | Marital Status | | + + + | Spiritism Affiliation | BIG | + + + | Race | White | + + + | Ethnic Group | Not or | + + + Author + + + | Author | [facility] | + + + | Organization | [facility] | + + + | Address | Unknown | + + + | Phone | Unavailable | + + + Support + + +---------+ + | Name | Relationship | Address | Phone | + + +---------+ + | Jade Cortez | ECON | Unknown | | + + +---------+ + Care Team Providers + +------+ + | Care Wooden Box Maker Name | Role | Phone | [...] | | [address] | [address] | [address]IFT | | | | [facility] | Blvd [place], [place] | (TEMPORAL); | | | | [place] [address] | [address] | BILATERAL UPPER LID | | | | | [phone] | BLEPHAROPLASTY (C02 | | | | [...] and holidays, call and as k the power generation plant operator to page the Eye Doctor chief engineering division. Return appointment date: Time: documented in this [...] | 1 | 07/20/19 | | | [id number]-ikmpvwhro-n | to the both eyelid | | [...] Abel Walls | | | Maxim Aguilar. Stamp Mounter Ophthalmic Facial Plastic and | | | [...] [place] | [address] | [place], [place] | | | JENNIFER POINT OF CARE | [facility] | [address] | | | TESTS | | | [...] | 1 strip | | | | [id number]-vyxmgluaw-nfzuyxqxgxvdm | | 18 9:38 | | | [...] 18 9:38 | | | | | 1%-1:[id number] - bupivacaine 0.5% | | AM PDT [...]
--- OUTSIDE RECORDS SUMMARY | ~2019-09-25 | XMS | Encounter Summary ---
Demographics + + + | Address | [address] | | | [place] [address] | + + + | Home Phone | | + + + | Preferred Language | Unknown | + + + | Marital Status | | + + + | Congregation Affiliation | BIG | + + + [...] Team Providers + +------+ + | Care Gypsum Block Setter Name | Role | Phone | + [...] [address] [place] | | | | | [facility] | [address] [place], | | | | | [place] [address] | [place] [address] | | | | | | [phone] | | | | | | | [...]
--- OUTSIDE RECORDS SUMMARY | ~2019-09-25 | XMS | Encounter Summary ---
Demographics + + + | Address | [address] | | | [place] [address] | + + + | Home Phone | | + + + | Preferred Language | Unknown | + + + | Marital Status | | + + + | Anabaptist Affiliation | BIG | + + + | Race | White | + + + | Ethnic Group | Not or | + + + Author + + + | Author | [facility] | + + + | Organization | [facility] | + + + | Address | Unknown | + + + | Phone | Unavailable | + + + Support + + +---------+ + | Name | Relationship | Address | Phone | + + +---------+ + | Jade Cortez | ECON | Unknown | | + + +---------+ + Care Team Providers + +------+ + | Care Environmental Compliance Technician Name | Role | Phone | [...] Pre-Admission | | 2018 | Orders | [place] | [address] | | | | | Oculoplastics at | Blvd [place], [place] | | | | | [place] [address] | [address] | | | | | [address] | [phone] | | | | | Eye [place] | | | | | | [facility], 5th floor | | | | | | [place] [address] | | | | | | [phone] | | | +--------+ + + + [...]
--- OUTSIDE RECORDS SUMMARY | ~2019-09-25 | XMS | Encounter Summary ---
Demographics + + + | Address | [address] | | | [place] [address] | + + + | Home Phone [...] Team Providers + +------+ + | Care Pipe Testing Technician Name | Role | Phone | [...] | | [address] | [address] | [address]IFT | | | | [facility] | [address]vd [place], [place] | (TEMPORAL); | | | | [place] [address] | [address] | BILATERAL UPPER LID | | | | | [phone] | BLEPHAROPLASTY (C02 | | | | [...] and holidays, call and as k the precipitator operator to page the Eye Doctor hotel operations manager. Return appointment date: Time: documented in [...] | 1 | 07/20/19 | | | dwqeuiul-zwppxrgbg-y | to the both eyelid | | [...] room, having tolerated the procedure well. Abel aWlls | | | Maxim Aguilar. Inside Contractor Sales Ophthalmic Facial Plastic and | | | [...] [place] | [address] | [place], [place] | | | JENNIFER POINT OF CARE | [facility] | [address] | | | TESTS | | | [...] | 1 strip | | | | omipbgqw-ixzezyooi-pbiaiokcxkepo | | 18 9:38 | | | [...] 18 9:38 | | | | | 1%-1:[id number] - bupivacaine 0.5% | | AM PDT [...]
--- OUTSIDE RECORDS SUMMARY | ~2019-09-25 | XMS | Encounter Summary ---
Demographics + + + | Address | [address] | | | [place] [address] | + + + | Home Phone [...] + + + | Author | [facility] | + + + | Organization | [facility] | + + + | Address | Unknown | + + + | Phone | Unavailable | + + + Support + + +---------+ + | Name | Relationship | Address | Phone | + + +---------+ + | Jade Cortez | ECON | Unknown | | + + +---------+ + Care Team Providers + +------+ + | Care Four Slide Machine Setter Name | Role | Phone | + +------+ + | Bonita Forbes MD | PCP | | + +------+ + Encounter Details +--------+ + + + + | Date | Type | Department | Care Team | Description | +--------+ + + + + | 07/21/ | Telephone | [facility] | Abel Aguilar MD | | | 2018 | | [place] | [address] | | | | | Oculoplastics at | vd [place], [place] | | | | | [address] | [address] | | | | | [address] | [phone] | | | | | Eye [place] | | | | | | [address] | | | | | | [place] [address] | | | | | | [phone] | | | +--------+ + + + [...]
--- OUTSIDE RECORDS SUMMARY | ~2019-09-25 | XMS | Encounter Summary ---
Demographics + + + | Address | [address] | | | [place] [address] | + + + | Home Phone | | + + + | Preferred Language | Unknown | + + + | Marital Status | | + + + | Restorationism Affiliation | BIG | + + + [...] Team Providers + +------+ + | Care Inseam Trimmer Name | Role | Phone | + [...] Rd | | | | | | [place], [place] | | | | | | [address] | | | +--------+ + + + [...]
--- OUTSIDE RECORDS SUMMARY | ~2019-09-25 | XMS | Encounter Summary ---
Demographics + + + | Address | [address] | | | [place] [address] | + + + | Home Phone [...] + + + | Author | [facility] | + + + | Organization | [facility] | + + + | Address | Unknown | + + + | Phone | Unavailable | + + + Support + + +---------+ + | Name | Relationship | Address | Phone | + + +---------+ + | Jade Cortez | ECON | Unknown | | + + +---------+ + Care Team Providers + +------+ + | Care Manager Media Relations Name | Role | Phone | + +------+ + | Bonita Forbes MD | PCP | | + +------+ + Encounter Details +--------+---------+ + + + | Date | Type | Department | Care Team | Description | +--------+---------+ + + + | 06/28/ | Office | [facility] | Abel Aguilar MD | Dermatochalasis of | | 2018 | Visit | [place] | [address] | both upper eyelids | | | | Oculoplastics at | Blvd [place], [place] | (Primary Dx); [place] | | | | [place] [address] | [address] | ptosis | | | | [address] | [phone] | | | | | Eye [place] | | | | | | [facility] [place] floor | | | | | | [place] [address] | | | | | | [phone] | | | +--------+---------+ + + + [...] brow ptosis and dermatochalasis is manually eleva jayk. Facial Exam: Prominent globes with strong negative [...] upper lid blepharoplasty and ptosis repair 2013 ([place]) Plan: Extensive discussion of options, patient wishes [...] I have reviewed and edited history and hydraulic technician documentation, and performed all elements to above examination documentation. Abel Aguilar M.D. Aligning Inspector Ophthalmic Facial Plastic and Reconstructive Surgery documented in this encou nter Plan of Treatment Not on filedocumented as of this encounter Procedures + +--------+ + + + | Procedure Name | Priori | Date/Time | Associated Diagnosis | Comments | | | ty | | | | + +--------+ + + + | CO VISUAL FIELD | Routin | 06/28/2017 | [...]
--- OUTSIDE RECORDS SUMMARY | ~2019-09-25 | XMS | Encounter Summary ---
Demographics + + + | Address | [address] | | | [place] [address] | + + + | Home Phone [...] Team Providers + +------+ + | Care Meteorologist Liaison Name | Role | Phone | + +------+ + | Bonita Forbes MD | PCP | | + +------+ + Encounter Details +--------+ + + + + | Date | Type | Department | Care Team | Description | +--------+ + + + + | 07/19/ | Procedure | [facility] | | | | 2018 | Pass | [address] [facility] | | | | | | [facility] | | | | | | [place] [address] | | | +--------+ + + + [...]
--- OUTSIDE RECORDS SUMMARY | ~2019-09-25 | XMS | Encounter Summary ---
Demographics + + + | Address | [address] | | | [place] [address] | + + + | Home Phone [...] + + + | Author | [facility] | + + + | Organization | [facility] | + + + | Address | Unknown | + + + | Phone | Unavailable | + + + Support + + +---------+ + | Name | Relationship | Address | Phone | + + +---------+ + | Jade Cortez | ECON | Unknown | | + + +---------+ + Care Team Providers + +------+ + | Care Clinical Assoc Name | Role | Phone | + [...] | | | | | | | [address] | | | | | | | [address] | | | | | | | [place] | | | | | | | [facility] [place] | | | | | | | [address] | | | | | | | Phone: | | | | | | | [phone] | | | | | | | Fax: | | | | | | | [phone] | +--------+--------+ + + + + Encounter Details +--------+---------+ + + + | Date | Type | Department | Care Team | Description | +--------+---------+ + + + | 06/17/ | Office | [facility] | Abel Aguilar MD | Brow ptosis (Primary | | 2018 | Visit | [place] | [address] | Dx); | | | | Oculoplastics at | [facility] [place] | Dermatochalasis of | | | | [facility] [address] | [address] | both upper eyelids | | | | [address] | [phone] | | | | | Eye [place] | | | | | | [facility], [address] [place] [address] | | | | | | [place] [address] | | | | | | [phone] | | | +--------+---------+ + + + [...] upper lid blepharoplasty and ptosis repair 2013 ([place]) Plan: Extensive discussion of options, patient wishes [...] I have reviewed and edited history and mine technician documentation, and performed all elements to above examination documentation. Abel Aguilar M.D. Pump Erector Helper Ophthalmic Facial Plastic and Reconstructive Surgery documented in this encounter Plan of Treatment Not on filedocumented as of this encounter Procedures + +--------+ + + + | Procedure Name | Priori | Date/Time | Associated Diagnosis | Comments | | | ty | | | | + +--------+ + + + | AR EXTERNAL PHOTOS | Routin | 06/17/2017 | [...]
--- OUTSIDE RECORDS SUMMARY | ~2019-09-25 | XMS | Clinical Summary ---
Demographics + + + | Address | [address] | | | [place] [address] | + + + | Home Phone | | + + + | Preferred Language | Unknown | + + + | Marital Status | | + + + | Anabaptism Affiliation | BIG | + + + | Race | White | + + + | Ethnic Group | Not or | + + + Author + + + | Author | [facility] | + + + | Organization | [facility] | + + + | Address | Unknown | + + + | Phone | Unavailable | + + + Support + + +---------+ + | Name | Relationship | Address | Phone | + + +---------+ + | Jade Cortez | ECON | Unknown | | + + +---------+ + Care Team Providers + +------+ + | Care Coil Winder Hand Name | Role | Phone | + +------+ + | Bonita Forbes MD | PCP | | + +------+ + Source Comments NADIA is fully live on both [facility] Ambulatory and [facility] InPatient.[facility] Allergies No Known Allergies Medications + + [...] | MARGARITA | xxxxxxxx | [birth year] | [phone] | [address] | PPO | | | [employer] | | 07-Pre | 7 | [id number] | | | | | | sent | | [place] | | | | | | | | [address] | | + +--------+ +--------+ + +------+ [...] | | al/Fam | | 1955 | [phone] | [address] | | | [place] | | | [address] ([place]) | [phone] | + +--------+ +--------+ + +
--- OUTSIDE RECORDS SUMMARY | ~2019-09-25 | XMS | Encounter Summary ---
Demographics + + + | Address | [address] | | | [place] [address] | + + + | Home Phone [...] Team Providers + +------+ + | Care Cemetery Warden Name | Role | Phone | + +------+ + | Bonita Forbes MD | PCP | | + +------+ + Encounter Details +--------+ + + + + | Date | Type | Department | Care Team | Description | +--------+ + + + + | 07/19/ | Procedure | [facility] | | | | 2018 | Pass | [address] [facility] | | | | | | [facility] | | | | | | [place] [address] | | | +--------+ + + + [...]
--- OUTSIDE RECORDS SUMMARY | ~2019-09-25 | XMS | Encounter Summary ---
Demographics + + + | Address | [address] [facility] [address] [address] [facility] | | | [place] [address] | + + + | Home Phone [...] Team Providers + +------+ + | Care Continuous Linter Drier Operator Name | Role | Phone | [...] + + | 07/19/ | Hospital | [facility] | Abel Aguilar MD | | | 2018 | Encounter | [address] [facility] | [address] | | | | | Dr Aquino Eye | [place], [place] | | | | | [place] | [address] | | | | | [place], [place] | [phone] | | | | | [address] | [...] and holidays, call and as k the tool lathe operator to page the Eye Doctor rehabilitation director. Return appointment date: Time: documented in this [...] | 1 | 07/20/19 | | | [id number]-[id number]-p | to the both eyelid | | [...] Abel Walls | | | Maxim Aguilar. Vocational Trainer Ophthalmic Facial Plastic and | | | [...] [place] | [address] | [place], [place] | | | TERRY RODRIGUEZ OF CARE | [address] | [address] | | | TESTS | | | [...]
--- OUTSIDE RECORDS SUMMARY | ~2019-09-25 | XMS | Encounter Summary ---
Demographics + + + | Address | [address] | | | [place] [address] | + + + | Home Phone | | + + + | Preferred Language | Unknown | + + + | Marital Status | | + + + | Roman Catholic Affiliation | BIG | + + + | Race | White | + + + | Ethnic Group | Not or | + + + Author + + + | Author | [facility] | + + + | Organization | [facility] | + + + | Address | Unknown | + + + | Phone | Unavailable | + + + Support + + +---------+ + | Name | Relationship | Address | Phone | + + +---------+ + | Jade Cortez | ECON | Unknown | | + + +---------+ + Care Team Providers + +------+ + | Care Tube Sizer And Cutter Operator Name | Role | Phone | [...] Pre-Admission | | 2018 | Orders | [place] | [address] | | | | | Oculoplastics at | Blvd [place], [place] | | | | | [address] | [address] | | | | | [address] | [phone] | | | | | [facility] [place] | | | | | | [facility], 5th floor | | | | | | [place] [address] | | | | | | [phone] | | | +--------+ + + + [...]
--- OUTSIDE RECORDS SUMMARY | ~2019-09-25 | XMS | Encounter Summary ---
Demographics + + + | Address | [address] | | | [place] [address] | + + + | Home Phone [...] Team Providers + +------+ + | Care Optometrist Assistant Name | Role | Phone | [...] [place] | | | | | [facility] | [address], | | | | | [place] [address] | [place] [address] | | | | | | [phone] | | | | | | | [...]
--- OUTSIDE RECORDS SUMMARY | ~2019-09-25 | XMS | Clinical Summary ---
Demographics + + + | Address | [address] [facility] [facility] [facility] | | | [place] [address] | + + + | Home Phone [...] + + | Author | [facility] | + + + | Organization | [facility] | + + + | Address | Unknown | + + + | Phone | Unavailable | + + + Support + + +---------+ + | Name | Relationship | Address | Phone | + + +---------+ + | Jade Cortez | ECON | Unknown | | + + +---------+ + Care Team Providers + +------+ + | Care Medical Doctor Md/Medical Director Name | Role | Phone | + +------+ + | Bonita Forbes MD | PCP | | + +------+ + Source Comments NADIA is fully live on both [facility] Amb[facility] and [facility] InPatient.[facility]ly [facility] Allergies No Known Allergies Medications + + [...] | MARGARITA | [email or web address] | 09/09/19 | [phone] | [address] | PPO | | | [employer] | | 07-Pre | 7 | [id number] | | | | | | sent | | [place] | | | | | | | | [address] | | + +--------+ +--------+ + +------+ [...] | | al/Fam | | 1955 | [phone] | [address] | | | [place] | | | [address] ([place]) | [phone] | + +--------+ +--------+ + +
--- OUTSIDE RECORDS SUMMARY | ~2019-09-25 | XMS | Encounter Summary ---
Demographics + + + | Address | [address] [facility] [facility] | | | [place] [address] | + + + | Home Phone | | + + + | Preferred Language | Unknown | + + + | Marital Status | | + + + | Mormon Affiliation | BIG | + + + [...] Team Providers + +------+ + | Care Strategic Communications Manager Name | Role | Phone | + +------+ + | Bonita Forbes MD | PCP | | + +------+ + Encounter Details +--------+ + + + + | Date | Type | Department | Care Team | Description | +--------+ + + + + | 07/21/ | Telephone | [facility] | Abel Aguilar MD | | | 2018 | | [place] | [address] | | | | | Oculoplastics at | vd [place], [place] | | | | | [address] | [address] | | | | | [address] | [phone] | | | | | [facility] [place] | | | | | | [address] | | | | | | [place] [address] | | | | | | [phone] | | | +--------+ + + + [...]
--- OUTSIDE RECORDS SUMMARY | ~2019-09-25 | XMS | Encounter Summary ---
Demographics + + + | Address | [address] | | | [place] [address] | + + + | Home Phone [...] Team Providers + +------+ + | Care Calender Inspector Name | Role | Phone | + +------+ + | Bonita Forbes MD | PCP | | + +------+ + Encounter Details +--------+---------+ + + + | Date | Type | Department | Care Team | Description | +--------+---------+ + + + | 06/28/ | Office | [facility] | Abel Aguilar MD | Dermatochalasis of | | 2018 | Visit | [place] | [address] | both upper eyelids | | | | Oculoplastics at | Blvd [place], [place] | (Primary Dx); [place] | | | | [place] [address] | [address] | ptosis | | | | [address] | [phone] | | | | | Eye [place] | | | | | | [facility], [facility] floor | | | | | | [place] [address] | | | | | | [phone] | | | +--------+---------+ + + + [...] upper lid blepharoplasty and ptosis repair 2013 ([place]) Plan: Extensive discussion of options, patient wishes [...] I have reviewed and edited history and aircraft ordnance technician documentation, and performed all elements to above examination documentation. Abel Aguilar M.D. Producer Assistant Ophthalmic Facial Plastic and Reconstructive Surgery documented in this encou nter Plan of Treatment Not on filedocumented as of this encounter Procedures + +--------+ + + + | Procedure Name | Priori | Date/Time | Associated Diagnosis | Comments | | | ty | | | | + +--------+ + + + | GA VISUAL FIELD | Routin | 06/28/2017 | [...]
--- OUTSIDE RECORDS SUMMARY | ~2019-09-25 | XMS | Encounter Summary ---
Demographics + + + | Address | [address] [facility] [address] | | | [place] [address] | + + + | Home Phone [...] Team Providers + +------+ + | Care Lead Assembler Name | Role | Phone | + +------+ + | Bonita Forbes MD | PCP | | + +------+ + Encounter Details +--------+ + + + + | Date | Type | Department | Care Team | Description | +--------+ + + + + | 07/19/ | Procedure | [facility] LOC | | | | 2018 | Pass | [address] [facility] | | | | | | [facility] | | | | | | [place] [address] | | | +--------+ + + + [...]
--- OUTSIDE RECORDS SUMMARY | ~2019-09-25 | XMS | Encounter Summary ---
Demographics + + + | Address | [address] [facility] | | | [address] | + + + | Home Phone [...] Team Providers + +------+ + | Care Wash Mill Operator Name | Role | Phone | [...] Rd | | | | | | [place], [place] | | | | | | [address] | | | +--------+ + + + [...]
--- OUTSIDE RECORDS SUMMARY | ~2019-09-25 | XMS | Encounter Summary ---
Demographics + + + | Address | [address] [facility] | | | [place] [address] | + + + | Home Phone [...] Providers + +------+ + | Care Tube Blower Name | Role | Phone | + +------+ + | Bonita Forbes MD | PCP | | + +------+ + Encounter Details +--------+---------+ + + + | Date | Type | Department | Care Team | Description | +--------+---------+ + + + | 07/29/ | Office | [facility] | Abel Aguilar MD | Dermatochalasis of | | 2018 | Visit | [place] | [address] | both upper eyelids | | | | Oculoplastics at | Blvd [place], [place] | (Primary Dx) | | | | [facility] [address] | [address] | | | | | [address] | [phone] | | | | | Eye [place] | | | | | | [facility], [facility] floor | | | | | | [place] [address] | | | | | | [phone] | | | +--------+---------+ + + + [...] as of this encounter Progress Notes Abel Aguialr MD - 07/29/2017 8:40 AM PDTFormatting of [...] upper lid blepharoplasty and ptosis repair 2013 ([place]) Plan: Reviewed po instructions F/u at [facility] eye care RTC with me prn Physician attestation: I have reviewed and edited history and heating and cooling technician documentation, and performed all elements to above examination documentation. Abel Aguilar M.D. Drafter Plumbing Ophthalmic Facial Plastic and Reconstructive Surgery documented in this encounter Plan of Treatment Not on filedocumented as of this encounter Visit Diagnoses + + | Diagnosis | + + | Dermatochalasis of both upper eyelids - Primary | + + documented in this encounter"
--- OUTSIDE RECORDS SUMMARY | ~2019-09-25 | XMS | Encounter Summary ---
Demographics + + + | Address | [address] [facility] | | | [place] [address] | + + + | Home Phone [...] Team Providers + +------+ + | Care Civil Estimator Name | Role | Phone | + +------+ + | Bonita Forbes MD | PCP | | + +------+ + Encounter Details +--------+ + + + + | Date | Type | Department | Care Team | Description | +--------+ + + + + | 07/21/ | Telephone | [facility] | Abel Aguilar MD | | | 2018 | | [place] | [address] | | | | | Oculoplastics at | vd [place], [place] | | | | | [address] | [address] | | | | | [address] | [phone] | | | | | [facility] [place] | | | | | | [address] | | | | | | [place] [address] | | | | | | [phone] | | | +--------+ + + + [...]
--- OUTSIDE RECORDS SUMMARY | ~2019-09-25 | XMS | Encounter Summary ---
Demographics + + + | Address | [address] [facility] | | | [place] [address] | + + + | Home Phone [...] Team Providers + +------+ + | Care Narcotics Investigator Name | Role | Phone | + [...] | | | | | | | [address] | | | | | [address] | | | | | | | Jose | | | | | | | [facility] [place] | | | | | | | [address] | | | | | | | Phone: | | | | | | | [phone] | | | | | | | Fax: | | | | | | | [phone] | +--------+--------+ + + + + Encounter Details +--------+---------+ + + + | Date | Type | Department | Care Team | Description | +--------+---------+ + + + | 06/17/ | Office | [facility] | Abel Aguilar MD | Brow ptosis (Primary | | 2018 | Visit | [place] | [address] | Dx); | | | | Oculoplastics at | [facility] [place] | Dermatochalasis of | | | | [facility] [address] | [address] | both upper eyelids | | | | [address] | [phone] | | | | | Eye [place] | | | | | | [facility], [address] [place] [address] | | | | | | [place] [address] | | | | | | [phone] | | | +--------+---------+ + + + [...] upper lid blepharoplasty and ptosis repair 2013 ([place]) Plan: Extensive discussion of options, patient wishes [...] I have reviewed and edited history and surveillance technician documentation, and performed all elements to above examination documentation. Abel Aguilar M.D. House Principal Ophthalmic Facial Plastic and Reconstructive Surgery documented in this encounter Plan of Treatment Not on filedocumented as of this encounter Procedures + +--------+ + + + | Procedure Name | Priori | Date/Time | Associated Diagnosis | Comments | | | ty | | | | + +--------+ + + + | NV EXTERNAL PHOTOS | Routin | 06/17/2017 | [...]
--- OUTSIDE RECORDS SUMMARY | ~2019-09-25 | XMS | Encounter Summary ---
Demographics + + + | Address | [address] | | | [place] [address] | + + + | Home Phone [...] Team Providers + +------+ + | Care Residential Mortgage Underwriter Name | Role | Phone | + [...] Rd | | | | | | [place], [place] | | | | | | [address] | | | +--------+ + + + [...]
--- OUTSIDE RECORDS SUMMARY | ~2019-09-25 | XMS | Encounter Summary ---
Demographics + + + | Address | [address] [facility] [facility] | | | [place] [address] | + + + | Home Phone | | + + + | Preferred Language | Unknown | + + + | Marital Status | | + + + | Pentecostalism Affiliation | BIG | + + + [...] Team Providers + +------+ + | Care Airborne Missions Systems Name | Role | Phone | [...] testing | | 2018 | on | [place] | [address] | | | | | Oculoplastics at | [place] | | | | | [facility] [address] | [address] | | | | | [address] | [phone] | | | | | Eye [place] | | | | | | [facility], [facility] floor | | | | | | [place] [address] | | | | | | [phone] | | | +--------+ + + + [...]
[~2019-09-25 16:54] MED LIST changes: +NORCO 5-325 TA1 EACH PO
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
--- NOTE | 2019-09-25 23:00 | NUR ---
PT ARRIVED TO ROOM 128 AT 2130 VIA STRETCHER. PT ABLE TO STAND AND TRANSFER TO THE BED, STEADY ON FEET. PT IS ALERT/ORIENTED, REPORTS 6/10 PAIN TO BACK AND LEFT HIP UPON ARRIVAL THAT AT THIS TIME HAS INCREASED TO 8/10. DR. MENDOZA CALLED AND ORDER RECEIVED FOR PRN FLEXERIL AND DAILY LIDOCAINE PATCH, BOTH GIVEN AT THIS TIME. PT STATES THAT HIS PAIN IS CURRENTLY "OUT OF CONTROL" SO 1MG IV DILAUDID GIVEN AT THIS TIME. ASSESSMENT LIMITED DUE TO PAPR PPE. DENIES CHEST PAIN AT THIS TIME, SINUS RHYTHM PER MONITOR. REPORTS CHRONIC SOB, CURRENTLY ON ROOM AIR. DENIES NAUSEA, SANDWICH BOX PROVIDED PER REQUEST, PT ATE 100%. SKIN GROSSLY INTACT, NO EDEMA NOTED, CMS INTACT. IV SITES INTACT AND PATENT, FLUIDS INFUSING WNL. PT AMBULATED TO BATHROOM, VOIDED 150ML AND AMBULATED BACK TO BED. VITAL SIGNS STABLE. NO FURTHER REQUESTS, CALL LIGHT WITHIN REACH.
--- NOTE | 2019-09-26 00:30 | NUR ---
ASSESSMENT COMPLETED, REMAINS LIMITED DUE TO PAPR PPE. PT IS ALERT/ORIENTED, REPORTS 4/10 BACK AND LEFT HIP PAIN, 1 TAB OXYCODONE GIVEN AND PT MOVED FROM BED TO CHAIR. REMAINS ON ROOM AIR, CONTINUES TO FEEL SOB, BUT SPO2 IS 95%. HR SINUS PER MONITOR, DENIES CHEST PAIN. DENIES NAUSEA. IV SITES REMAIN INTACT, FLUIDS INFUSING WNL. NO FURTHER REQUESTS AT THIS TIME, CALL LIGHT AND BELONGINGS WITHIN REACH.
--- NOTE | 2019-09-26 02:15 | NUR ---
IN TO START CEFEPIME INFUSION. PT SITTING UP IN CHAIR, STATES HE HAS BEEN ABLE TO SLEEP OFF AND ON. REPORTS THAT HIS PAIN HAS IMPROVED TO 2/10 WHICH HE STATES IS TOLERABLE AT THIS TIME. URINAL EMPTIED. DIET 7-UP AND HEAT PACK PROVIDED PER REQUEST. NO FURTHER NEEDS AT THIS TIME, CALL LIGHT AND BELONGINGS WITHIN REACH.
--- NOTE | 2019-09-26 04:30 | NUR ---
PT CALLED TO REQUEST PAIN AND NAUSEA MEDICATION. REPORTS THAT THE PAIN IN HIS BACK AND LEFT HIP IS RADIATING DOWN HIS LEG NOW. ALSO REPORTS A HEADACHE AND CHILLS, ORAL TEMP: 98.9. TYLENOL, OXYCODONE, AND HEAT PACK PROVIDED FOR PAIN. ZOFRAN PROVIDED FOR NAUSEA. REMAINDER OF ASSESSMENT REMAINS UNCHANGED AND LIMITED DUE TO PAPR PPE. URINAL EMPTIED. WARM BLANKET PROVIDED. NO FURTHER REQUESTS AT THIS TIME, CALL LIGHT AND BELONGINGS WITHIN REACH.
--- NOTE | 2019-09-26 06:32 | NUR ---
PT CALLED TO REPORT THAT HE WAS STILL HAVING 4/10 PAIN TO HIS BACK, LEFT HIP AND LEG. REPORTS THAT HIS HEADACHE AND NAUSEA HAVE RESOLVED. 1 TAB OXYCODONE GIVEN. BREAKFAST ORDER RECEIVED AND CALLED TO KITCHEN. URINAL EMPTIED.
--- NOTE | 2019-09-26 08:55 | NUR ---
PT SITTING UP IN CHAIR ALERT AND ORIENTED X4. PT DENIES NAUSEA, SOB, AND CHEST PAIN. PT DOES C/O BACK AND LEFT HIP PAIN 5/, STATES "I'M READY FOR PAIN MEDICATION SOON I CAN". PT VITALS ARE WNL. PT HUNGRY AND IS ABLE TO START EATING BREAKFAST RIGHT AWAY. PT COMMUNICATES EASILY, IS COOPERATIVE AND POLITE. PT REQUESTS THAT HIS HOME MEDS BE RESTARTED "I HAVE REAL PROBLEMS WITHOUT THEM". BOTH IV SITES ARE INTACT, NO REDNESS OR SWELLING NOTED, FLUIDS AND FLUSHES INFUSE EASILY.
--- NOTE | 2019-09-26 09:41 | NUR ---
PT SITTING UP IN CHAIR TALKING ON THE PHONE.
[2019-09-26] MEDS ORDERED: LIDOCAINE1 EACH TOP (10:15)
[2019-09-26] MEDS ORDERED: NICOTINE LOZENGE2 MG BUCCAL (10:29)
[2019-09-26] MEDS ORDERED: METFORMIN HCL1000 MG PO (10:34)
--- NOTE | 2019-09-26 12:08 | NUR ---
PT HAS NOTABLE RUN OF PSVT/A-FLUTTER. IS AWARE HE IS AT THE NURSES STATION DURING THIS EVENT. PT DENIES PAIN, SOB, CHEST PAIN, AND NAUSEA. PT CONVERTS BACK TO SINUS RHYTHM WITHIN TWO MINUTES. PT REMAINS ALERT AND ORIENTED X4. WILL CONTINUE TO MONITOR. PT TO REMAIN IN ICU AND NOT TRANSFER TO MED/SURG FLOOR AT THIS TIME.
--- NOTE | 2019-09-26 15:40 | NUR ---
CALLED TO CHECK ON PT STATUS, UPDATED, ORDER GIVEN TO TRANSFER PT TO MED/SURG.
--- NOTE | 2019-09-26 15:47 | NUR ---
PT HR ELEVATED TO 130'S FOR LESS THAN ONE MINUTE. CALLED TO UPDATE ON PT STATUS, ORDER GIVEN FOR TELLY, PT STILL TO TRANSFER TO MED/SURG.
--- NOTE | 2019-09-26 15:52 | EKG ---
[facility] [address] [place] [address] Signed Sinus tachycardia Septal infarct (cited on or before 05-SEP-2019) Abnormal ECG When compared with ECG of 13-SEP-2019 10:58, Nonspecific T wave abnormality no longer evident in Inferior leads Confirmed by BHAVANA MENDOZA DO ([id number]) on 09/26/2019 3:52:35 PM Electronically Signed By: BHAVANA MENDOZA DO 09/26/19 1552 PATIENT NAME: NATIVIDAD FERMIN JEFFERY Electrocardiogram DATE OF : 59 PHYSICIAN: BHAVANA MENDOZA DO REPORT #: [id number] REPORT IS CONFIDENTIAL AND NOT TO BE RELEASED WITHOUT AUTHORIZATION
--- NOTE | 2019-09-26 16:05 | NUR ---
FULL REPORT GIVEN TO ANAM SHELLEY VIA PHONE, ALL QUESTIONS ANSWERED.
--- NOTE | 2019-09-26 16:43 | NUR ---
Patient ambulates from CCU with KARSTEN Jones. Patient states he is having some pain. Voices concern about taking medications due to history of addiction. Ambulating around room at this time. In street clothes at this time, does not want to wear a gown. VS obtained, assessment completed. Denies other needs.
--- NOTE | 2019-09-26 19:50 | NUR ---
PATIENT SITTING IN BED WATCHING TV, NO NEEDS ATTHIS TIME. CALL LIGHT IN REACH.
--- NOTE | 2019-09-26 21:50 | NUR ---
PATIENT HAS A SLIGHT COUGH ONCE IN AWHILE, URINATING FINE PER URINAL AND INDEPENDENT IN THE ROOM, ALL PM MEDS TAKEN EXCEPT HE WANTED PRUNE JUICE INSTEAD OF THE BOWEL PROTOCOL AND TOOK A TYLENOL FOR SOME LEG PAIN10. NURSE WEARING PAPR IN ROOM AND PATIENT WEARING HIS MASK. CALL LIGHT IN REACH, WATER GLASSES FULL, PATIENT ALSO GOT 2 SUGAR FREE PUDDINGS.
--- NOTE | 2019-09-27 00:10 | NUR ---
PATIENT RESTING QUIETLY ON HIS RIGHT SIDE, SR IN THE 70'S ON THE TELE. RESPIRATIONS REGULAR AND EVEN, DOOR CLOSED IN ISOLATION, PATIENT APPEARS IN NO DISTRESS.
--- NOTE | 2019-09-27 02:15 | NUR ---
PATIENT DOING OK FAR PAIN, DID NOT WANT ANYTHING FOR PAIN. DUMPED PATIENT'S URINAL AND HUNG 2AM ANTIBIOTICS. REATTACHED TELE LEADS. PATIENT SAYS HE IS DOING OK. THIS RN WENT IN AND COME OUT IN PAPR PER PROTOCOL. CALL LIGHT WAS IN REACH.
--- NOTE | 2019-09-27 06:05 | NUR ---
PATIENT SAYS HE SLEPT FAIRLY WELL. VS STABLE. PATIENT HAS GREAT URINE OUTPUT. TAKING FLUIDS WELL, WEARS HIS MASK IN ROOM. USING PAPR TO ENTER ROOM. DRAWING PATIENT'S BLOOD FOR AM LABS. REQUESTS A COUPLE CUPS OF COFFEE AND ICE WHICH ARE BEING BROUGHT TO THE ROOM. BOTH IV'S AR PATENT AND SALINE LOCKED AT THIS TIME. NO OTHER NEEDS OR ISSUES TO REPORT.
--- NOTE | 2019-09-27 07:41 | NUR ---
0708: Report received from Ck SHELLEY. Pt walking about in his room independlenty at this time. Tele reads SR at 77.
--- NOTE | 2019-09-27 09:23 | NUR ---
PT STATES HE HAS SOME BACK, LEFT HIP AND THIGH PAIN AT AN 8/10. HE WAS MEDICATED ORDERED, SEE EMAR. HE DENIES ANY CP OR SOB. PT STATES HIS ONLY OTHER PROBLEMS IS THAT HE IS FEELING "WEEPY" HE STATES HE NORMALY TAKES DESVENLAFAX 100 MG EVERY MORNING. THE PT'S MD WILL BE NOTIFIED OF THIS. I WAS UNABLE TO LISTEN TO THE PT'S HEART, LUNGS AND ABD THIS RN IS WEARING PAPR. THE PT DENIES ANY SOB, CP AND STATES HE BOWELS ARE NORMAL AT THIS TIME. PT REFUSED MIRALAX AND SENNA THIS AM HAS HE HAD A BM YESTERDAY. VSS AT THIS TIME. PT REMAINS ON TELE WELL.
[2019-09-27] MEDS ORDERED: METOPROLOL TART25 MG PO (11:03)
[2019-09-27] MEDS ORDERED: CEFDINIR300 MG PO (11:04)
--- NOTE | 2019-09-27 11:46 | NUR ---
VO FROM DR MENDOZA TO STOP IV ABX NOW.
== END 2019-09-27 11:55 | disposition home or self-care (01) | DRG 872 ==
LOC: ED 16:54 → CCU 21:01 → MS 09-26 16:26
PROVIDERS: ADMIT Student in an Organized Health Care Education/Training Program
DX: A41.9 Sepsis, unspecified organism (principal); N17.9 Acute kidney failure, unspecified; I47.1 Supraventricular tachycardia; J43.9 Emphysema, unspecified; F39 Unspecified mood [affective] disorder; R65.20 Severe sepsis without septic shock; K21.9 Gastro-esophageal reflux disease without esophagitis; E11.9 Type 2 diabetes mellitus without complications; F41.8 Other specified anxiety disorders; Z85.72 Personal history of non-Hodgkin lymphomas; Z88.8 Allergy status to other drugs, medicaments and biological substances; Z79.84 Long term (current) use of oral hypoglycemic drugs; Z79.51 Long term (current) use of inhaled steroids; Z79.899 Other long term (current) drug therapy
CPT/HCPCS: 71045; 74177; 80048; 80053; 81001; 83605; 83615; 83735; 83880; 85025; 93005; 93010; 94640; 96361; 96375; 99285-25; C9803; J0692; J0696; J1170; J1650; J1815; J1885; J2405; J7030; J7121; Q9967

== ENCOUNTER 2019-12-02 06:26 | Emergency (ER) | payer OTHER ==
[~2019-12-02] VITALS: Ht 165.1 cm; Wt 86.2 kg
--- OUTSIDE RECORDS SUMMARY | ~2019-12-02 | XMS | Encounter Summary ---
Demographics + + + | Address | [address] [facility] | | | [place] [address] | + + + | Home Phone [...] Author + + + | Author | [facility] | + + + | Organization | [facility] | + + + | Address | Unknown | + + + | Phone | Unavailable | + + + Support + + +---------+ + | Name | Relationship | Address | Phone | + + +---------+ + | Jade Cortez | ECON | Unknown | | + + +---------+ + Care Team Providers + +------+ + | Care Cover Maker Name | Role | Phone | + [...] [address] | | | | | | [place], [place] | | | | | | [address] | | | +--------+ + + + [...] on file | | + + + documented as of this encounter Plan of Treatment Not on filedocumented as of this encounter Visit Diagnoses Not on filedocumented in this encounter"
--- OUTSIDE RECORDS SUMMARY | ~2019-12-02 | XMS | Encounter Summary ---
Demographics + + + | Address | [address] | | | [place] [address] | + + + | Home Phone | | + + + | Preferred Language | Unknown | + + + | Marital Status | | + + + | Mu-Ism Affiliation | BIG | + + + [...] Team Providers + +------+ + | Care Homicide Detective Name | Role | Phone | + +------+ + | Bonita Forbes MD | PCP | | + +------+ + Encounter Details +--------+---------+ + + + | Date | Type | Department | Care Team | Description | +--------+---------+ + + + | 07/29/ | Office | [facility] | Abel Aguilar MD | Dermatochalasis of | | 2018 | Visit | [place] | [address] | both upper eyelids | | | | Oculoplastics at | [address] [place], [place] | (Primary Dx) | | | | [facility] [address] | [address] | | | | | [address] | [phone] | | | | | [facility] [place] | | | | | | [facility] | | | | | | [place] [address] | | | | | | [phone] | | | +--------+---------+ + + + [...] upper lid blepharoplasty and ptosis repair 2013 ([place]) Plan: Reviewed po instructions F/u at [facility] with me prdamon Physician attestation: I have reviewed and edited history and electronic train control technician documentation, and performed all elements to above examination documentation. Abel Aguilar M.D. Manufacturing Shift Supervisor Ophthalmic Facial Plastic and Reconstructive Surgery documented in this encounter Plan of Treatment Not on filedocumented as of this encounter Visit Diagnoses + + | Diagnosis | + + | Dermatochalasis of both upper eyelids - Primary | + + documented in this encounter"
--- OUTSIDE RECORDS SUMMARY | ~2019-12-02 | XMS | Encounter Summary ---
Demographics + + + | Address | [address] | | | [place] [address] | + + + | Home Phone | | + + + | Preferred Language | Unknown | + + + | Marital Status | Unknown | + + + | Mosque Affiliation | Unknown | + + + | Race | Unknown | + + + | Ethnic Group | Unknown | + + + Author + + + | Author | [facility] | | | and [place] | + + + | Organization | [facility] | | | and [place] | + + + | Address | Unknown | + + + | Phone | Unavailable | + + + Care Team Providers + +------+ + | Care Body Shop Worker Name | Role | Phone | + +------+ + | Zachary Mercado NP | PCP | | + +------+ + Encounter Details +--------+ + + + + | Date | Type | Department | Care Team | Description | +--------+ + + + + | 11/30/ | [facility] | [facility] | Provider, | | | 2020 | Exam | [facility] | MD Jenifer [address] | | | | | IMAGING [address] | | | | | [address] | [place] [address] | | | | | [place] [address] | | | | | | [phone] | | | +--------+ + + + + Social History + +-------+ +--------+------+ | Tobacco Use | Types | Packs/Day | Years | Date | | | | | Used | | + +-------+ +--------+------+ | Never Assessed | | | | | + +-------+ +--------+------+ + + + | Sex Assigned at [...] | + +--------+ + + + | XR LUMBAR SPINE 2 OR | Routin | 09/13/2019 | | Results for this | | 3 VW | e | 12:00 AM | | procedure are in the | | | | PDT | | results section. | + +--------+ + + + documented in this encounter Results XR Lumbar Spine 2 or 3 Vw (09/13/2019 12:00 AM PDT) + + | Specimen | + + | | + + + + + | Narrative | Performed At | + + + | External films for comparison only | [facility] | | | | | No results will be in the chart. | | + + + + +---------+ + + | Performing | Address | City/State/Zipcode | Phone Number | | Organization | | | | + +---------+ + + | [facility] | | | | + +---------+ + + documented in this encounter Visit Diagnoses Not on filedocumented in this encounter"
--- OUTSIDE RECORDS SUMMARY | ~2019-12-02 | XMS | Encounter Summary ---
Demographics + + + | Address | [address] | | | [place] [address] | + + + | Home Phone | | + + + | Preferred Language | Unknown | + + + | Marital Status | | + + + | Orthodoxy Affiliation | BIG | + + + | Race | White | + + + | Ethnic Group | Not or | + + + Author + + + | Author | [facility] | + + + | Organization | [facility] | + + + | Address | Unknown | + + + | Phone | Unavailable | + + + Support + + +---------+ + | Name | Relationship | Address | Phone | + + +---------+ + | Jade Cortez | ECON | Unknown | | + + +---------+ + Care Team Providers + +------+ + | Care Spare Hand Carding Name | Role | Phone | + [...] [facility] | | | | | [facility] | [address], | | | | | [place] [address] | [place] [address] | | | | | | [phone] | | | | | | | [...] + + documented as of this encounter [place] Notes Anesthesia Postprocedure Evaluation - Job Valdez CRNA - 07/19/2017 10:01 AM PDTForma tting of this note might be different from the original. Suman Cortez Sr. [id number] No Known Allergies Past Surgical History Procedure Laterality Date Blepharoplasty, upper eyelid, with excessive skin weighting down lid Bilateral 2014 Temp: 36.4 C (97.5 F) Pulse: 66 Resp: 12 BP: 129/83 SpO2: 95 % Evaluation Patient personally seen and evaluated for recovery from anesthesia care Complications nesthesia Preproc edure Evaluation - Yecenia Franco MD - 07/19/2017 8:26 AM PDT Suman Cortez Sr. [id number] No Known Allergies NPO:NPO Status: since mn Last Vitals: Temp: 36.4 C (97.5 F) Pulse: 66 Resp: 12 BP: 129/83 SpO2: 95 % O2 Delivery Device: None (room air) Preg Status/LMP: Patient Active Problem List Diagnosis Brow ptosis Dermatochalasis of both upper eyelids Past Surgical History Procedure Laterality Date Blepharoplasty, upper eyelid, with excessive skin weighting down lid Bilateral 2014 Current Medication List Name Sig Last Dose BUSPIRONE 15 MG TABLET Take by mouth. 07/19/2017 CYANOCOBALAMIN (VIT B-12) 1,000 MCG/ML INJECTION SOLUTION Inject into the muscle (IM). 07/18 DULOXETINE 60 MG CAPSULE,DELAYED RELEASE Take by mouth. 07/19/2017 GLIPIZIDE 10 MG TABLET Take by mouth. Within last 7 days METFORMIN 1,000 MG TABLET Take by mouth. 07/19/2017 OXYBUTYNIN CHLORIDE 5 MG TABLET Take by mouth. 07/19/2017 PANTOPRAZOLE 40 MG TABLET,DELAYED RELEASE Take by mouth. 07/19/2017 PRAMIPEXOLE 0.125 MG TABLET Take by mouth. Within last 7 days PREDNISONE 20 MG TABLET Take 1 tablet by mouth daily for 5 to 10 days for COPD exacerbation Within last 30 days QUETIAPINE 25 MG TABLET Take one-half to 1 tablet by mouth three times a day as needed for anxiety 07/18/2017 SIMVASTATIN 40 MG TABLET Take by mouth. 07/18/2017 TESTOSTERONE CYPIONATE 200 MG/ML INTRAMUSCULAR OIL INJECT 100MG (0.5ML) INTRAMUSCULARLY HEENA WEEK. Within last 7 days TRAZODONE 50 MG TABLET Take by mouth. Within last 7 days No results found for: RATE, ATRIALRATE, MS, QRS, QT, QTC, PAXIS, RAXIS, TAXIS, EKGDX Preoperative Adult Anesthesia Plan Last edited 07/19/17 81 by Yecenia Franco MD ROS: HPI: Had black coffee at 06:30 a.m. Pulmonary: Short of breath at baseline. Smoker. Has COPD, supposed to be on daily inhalers but says "they are poison." Takes albuterol 2-3x a day. shortness of breath no wheezing no Recent Respiratory Infection Pt. Has no asthma COPD moderate (chronic bronchodilator used) Dx of sleep apnea Uses BiPap/CPAP Risk factors for sleep apnea: Pt SNORE's loudly (louder than talking) Pt. states someone has observed you STOPPING breathing during your sleep Age>50 and Gender Male pt. at high risk of MANJINDER Cardiovascular: Functional Capacity: Moderate - palpitations no chest pain no hypertension no CAD Sx no pacemaker/ICD GI/Hepatic: GERD Control: well controlled no liver disease Renal: no renal failure Endo: Diabetes: type 2 poorly controlled oral hypoglycemics 251-300 Neuro/Psych: No Head Conditions No Neuromuscular Conditions no pain Physical Exam General: Appearance: Age appropriate and Mild distress LOC: Alert Airway: Dentition: dentures-upper missing teeth Mallampati: 2 Mouth Opening: > 3 cm TM Distance:> 6 cm Oneal: No C-Spine ROM: Normal Pulmonary: Respiratory: pulmonary exam normal Breath Sounds: breath sounds normal Breath sound comments: no wheezing noted Cardiovascular: Rhythm: Regular Rate: Normal Abdomen: General: Body Habitus: obesity Additional Comments: Physically threatening asking provider to leave room after discussing the need to wait 2 hours for due to inappropriate PO status. 5 Revision History Date/Time User Provider Type Action > 07/19/17825 Yecenia Franco MD Physician Sign 07/19/17 0751 Yecenia Franco MD Physician Share Anesthesia Plan Comments Discussed with patient that waiting 2 hours for black coffee is required before administeri ng anesthesia. Patient became visibly upset and physically threatening. Discussed that this measure is for his safety to decrease risk of aspiration, and he replied that he did not bel ieve I was looking out for his safety. He said if he had to be delayed he needed a nicotine lozenge or would need to smoke a cigarette, and said the last time he smoked was before arri ving. He then asked me to leave the bedside. ASA ASA 3 NPO Status Will meet NPO criteria at 08:30am, plan to delay case until meets criteria. NPO Status: NPO by protocol Monitors/Lines to be used Standard Anesthetic Consideration Premeds Induction intravenous induction Anesthetic Technique Monitored Anesthesia Care; Obstetric Anesthesia Post-Op Pain Plan IV analgesics and Orals; Blood Products Informed Consent PARQ discussed with: patient, Procedures, Alternatives, Risks, and Questions discussed Dental Risk discussed with patient ; ; Date Consent Series Given: 07/19/2017 8:27 AM Code status in OR Patients Code Status in OR: FULL 07/19 9:17 AM documented in this encount er Miscellaneous Notes PMC/ANE PreOp Note - Yecenia Franco MD - 07/19/2017 7:49 AM PDTROS: HPI: Had black coffee at 06:30 a.m. Pulmonary: Short of breath at baseline. Smoker. Has COPD, supposed to be on daily inhalers but says "t hey are poison." Takes albuterol 2-3x a day. shortness of breath no wheezing no Recent Respiratory Infection Pt. Has no asthma COPD moderate (chronic bronchodilator used) Dx of sleep apnea Uses BiPap/CPAP Risk factors for sleep apnea: Pt SNORE's loudly (louder than ta lking) Pt. states someone has observed you STOPPING breathing during your sleep Age>50 and G [place] Male pt. at high risk of MANJINDER Cardiovascular: Functional Capacity: Moderate - palpitations no chest pain no hypertension no CAD Sx no pacemaker/ICD GI/Hepatic: GERD Control: well controlled no liver disease Renal: no renal failure Endo: Diabetes: type 2 poorly controlled oral hypoglycemics 251-300 Neuro/Psych: No Head Conditions No Neuromuscular Conditions no pain Physical Exam General: Appearance: Age appropriate and Mild distress LOC: Alert Airway: Dentition: dentures-upper missing teeth Mallampati: 2 Mouth Opening: > 3 cm TM Distance:> 6 cm Oneal: No C-Spine ROM: Normal Pulmonary: Respiratory: pulmonary exam normal Breath Sounds: breath sounds normal Breath sound comments: no wheezing noted Cardiovascular: Rhythm: Regular Rate: Normal Abdomen: General: Body Habitus: obesity Additional Comments: Physically threatening asking provider to leave room after discussing the need to wait 2 h ours for due to inappropriate PO status. documented in this encount er Plan of Treatment Not on filedocumented as [...] | | | 07/19/17 at 0919, Until Sat | | AM PDT | | | [...]
--- OUTSIDE RECORDS SUMMARY | ~2019-12-02 | XMS | Encounter Summary ---
Demographics + + + | Address | [address] | | | [place] [address] | + + + | Home Phone [...] + + + | Author | [facility] | + + + | Organization | [facility] | + + + | Address | Unknown | + + + | Phone | Unavailable | + + + Support + + +---------+ + | Name | Relationship | Address | Phone | + + +---------+ + | Jade Cortez | ECON | Unknown | | + + +---------+ + Care Team Providers + +------+ + | Care Senior Care Provider Name | Role | Phone | + [...] testing | | 2018 | on | [place] | [address] | | | | | [place]opl[place] at | [place] | | | | | [facility] [address] | [address] | | | | | [address] | [phone] | | | | | [facility] [place] | | | | | | [facility] floor | | | | | | [place] [address] | | | | | | [phone] | | | +--------+ + + + [...] + + documented as of this encounter Miscellaneous Notes Telephone Encounter - Bonnie Paz - 06/28/2017 10:49 AM PDT documented in this encounter Plan of Treatment Not on filedocumented as of this encounter Visit Diagnoses Not on filedocumented in this encounter"
--- OUTSIDE RECORDS SUMMARY | ~2019-12-02 | XMS | Encounter Summary ---
Demographics + + + | Address | [address] | | | [place] [address] | + + + | Home Phone [...] Team Providers + +------+ + | Care Licsw Name | Role | Phone | + [...] | | [address] | [address] | [address] | | | | [facility] | [address] [place], [place] | (TEMPORAL); | | | | [place] [address] | [address] | BILATERAL UPPER LID | | | | | [phone] | BLEPHAROPLASTY (C02 | | | | [...] Discharge Instructions Instructions Vera Kincaid RN - [facility] Do not drive, drink alcoholic beverages, sign legal documents or make major decisions durin g the next 24 hours. Call your doctor [...] and holidays, call and as k the timber incisor operator to page the Eye Doctor nurse transitional. Return appointment date: Time: documented in this [...] | 1 | 07/20/19 | | | [id number]-[id number]-m | to the both eyelid | | [...] | 18 | 8 | | release (/MINGO) | | | | | | + [...] + + documented as of this encounter H&P Notes Abel Aguilar MD - 07/19/2017 8:05 AM PDTI have examined the patient, reviewed the pre-pro cedural history and physical, and I am not aware of any interval changes. Abel Aguilar M.D. Retail Loan Originator Ophthalmic Facial Plastic and Reconstructive Surgery documented in this encounter Procedure Notes Abel Aguilar MD - 07/19/2017 9:55 AM PDTAssociated Order(s): PROCEDURE NOTEDate of proced ure: 07/19/17 Attending Surgeon: Abel Aguilar M.D. Preoperative Diagnosis: 1. Bilateral brow ptosis 2. Bilateral upper lid dermatochalasis Postoperative Diagnosis: 1. Bilateral brow ptosis 2. Bilateral upper lid dermatochalasis Procedure: 1. Bilateral direct brow lift 2. Bilateral upper lid blepharoplasty Anesthesia: Local infiltration of a 1:1 mixture of 2% lidocaine with epinephrine 1:100,000 and 0.5% Marcaine with Monitored Anesthesia Care Estimated Blood Loss: Minimal Complications: None Specimens: none Indications: This is a patient with bilateral brow ptosis and upper lid dermatochalasis int erfering with vision. The procedure, alternatives and risks were discussed with the patient at length, and the patient decided to proceed with surgery as described below. The potential for prominent, permanent forehead scars was discussed at length with the patient. Procedure: Prior to the procedure, the operative plan and correct site were confirmed by e surgeon. The patient was placed in the supine position on the operating table. Attention was directed to the temporal aspect of the brows, where a skin marking pen was used to santana a supraciliary incision, and to the upper lids, where the natural lid crease was marked. The amount of skin to be removed was judged a ellipse was marked on each side. These areas were infiltrated with the above named local anesthetic solution. Attention was first directed to the left brow, where a #15 blade was used to incise the ski n as marked. A sharp scissors was used to excise a skin-fat flap, and meticulous hemostasis was maintained at all times with judicious use of the cautery. Dissection continued down to the orbital rim, where the arcus marginalis was released, permitting elevation of the brow. The brow was lifted and secured to the periosteum of the forehead with multiple 5-0 vicryl s utures. The wound was then closed with multiple interrupted 5-0 vicryl sutures in a layered , buried fashion. The skin was then closed with a running horizontal mattress 5-0 fast absor stevie gut suture to sendy the wound edges. Attention was then directed to the right brow, where a #15 blade was used to incise the ski n as marked. A sharp scissors was used to excise a skin-fat flap, and meticulous hemostasis was maintained at all times with judicious use of the cautery.Dissection continued down to t he orbital rim, where the arcus marginalis was released, permitting elevation of the brow. T he brow was lifted and secured to the periosteum of the forehead with multiple 5-0 vicryl romano tures. The wound was then closed with multiple interrupted 5-0 vicryl sutures in a layered , buried fashion. The skin was then closed with a running horizontal mattress 5-0 fast absor stevie gut suture to sendy the wound edges. This provided a nice symmetric elevation of the br ows. Attention was then directed to the right and left upper lids, where the amount of skin to b e removed with the blepharoplasty was marked using a calipers. Attention was first directed to the right upper lid, where the skin incisions were made wit h a #15 Bard-marco a blade. A high-temperature cautery unit was used to excise a skin-muscle flap, and meticulous hemostasis was maintained with judicious use of the cautery. The orbit al septum was incised,, and the central and nasal fat pads were conservatively debulked. Aft er meticulous hemostasis was confirmed, the skin was closed with a running 5-0 fast absorbin g gut suture. Attention was then directed to the left upper lid where the skin incisions were made with a #15 Bard-marco a blade. A high-temperature cautery unit was used to excise a skin-muscle fla p, and meticulous hemostasis was maintained with judicious use of the cautery. The orbital septum was incised, and the central and nasal fat pads were conservatively debulked. After m eticulous hemostasis was confirmed, the skin was closed with a running 5-0 fast absorbing gu t suture. The drapes were removed, surgical area cleaned, and ophthalmic ointment was applied to the wounds. The patient was awakened and transported to the recovery room, having tolerated the procedure well. Abel Aguilar M.D. Retail Loan Originator Ophthalmic Facial Plastic and Reconstructive Surgery documented [...] Abel Walls | | | Maxim Aguilar. Retail Loan Originator Ophthalmic Facial Plastic and | | | [...] (H) | 70 - 99 mg/dL | [facility] - | | | GLUCOSE, | | [...] | + + + + + | [facility] | [address] | [place], [place] | | | [facility] [place] | [facility] | [address] | | | TESTS | | | [...] | 1 strip | | | | gpoafdgt-msjevqjxp-pgibkvoskrqah | | 18 9:38 | | | [...] 18 9:38 | | | | | 1%-1:[id number] - bupivacaine 0.5% | | AM PDT | | | | | (1:1) - hyaluronidase 150 | | | | | | | units/mL 1 mL INTRAPROCEDURE | | | | | | | PRN, Starting 07/19/17 at | | | | | | | 0938, Until 07/19/17 at 0956 | | | | [...] | PRN, Starting Sat07/19/17 at | | AM PDT | | | | | 0938, Until Sat07/19/17 at 0956 | | | | | | + +-------+ +--------+---+---+ +---+---+ | | | +---+---+ documented in this encounter
--- OUTSIDE RECORDS SUMMARY | ~2019-12-02 | XMS | Clinical Summary ---
Demographics + + + | Address | [address] | | | [place] [address] | + + + | Home Phone | | + + + | Preferred Language | Unknown | + + + | Marital Status | Unknown | + + + | Bahai Affiliation | Unknown | + + + | Race | Unknown | + + + | Ethnic Group | Unknown | + + + Author + + + | Author | [facility] | | | and [place] | + + + | Organization | [facility] | | | and [place] | + + + | Address | Unknown | + + + | Phone | Unavailable | + + + Care Team Providers + +------+ + | Care Navigation Teacher Name | Role | Phone | + +------+ + | Zachary Mercado NP | PCP | | + +------+ + Allergies Not on File Medications Not on file Active Problems Not on file Encounters +--------+ + + + + | Date | Type | Specialty | Care Team | Description | +--------+ + + + + | 11/30/ | Imaging | Radiology | Provider, | | | 2019 | Exam | | MD Jenifer | | +--------+ + + + + | 11/30/ | Imaging | Radiology | Provider, | | | 2019 | Exam | | MD Jenifer | | +--------+ + + + + | 11/30/ | Imaging | Radiology | Provider, | | | 2019 | Exam | | Historical, | | +--------+ + + + + from Last 3 Months Social History + +-------+ +--------+------+ | Tobacco [...] on file | | + + + Last Filed Vital Signs Not on file Plan of Treatment + + + + + | Health Maintenance | Due Date | Last | Comments | | | | Done | | + + + + + | Vaccine: Zoster (1 | | | | | of 2) | 8 | | | + + + + + | Vaccine: Influenza | | 02/18/20 | | | (#1) | 0 | 19, | | | | | 12/12/19 | | | | | 14, | | | | | 03/26/19 | | | | | 14, | | | | | Addition | | | | | al | | | | | history | | | | | exists | | + + + + + | Vaccine: | | 01/03/20 | | | Dtap/Tdap/Td (2 - | 9 | 19, | | | Td) | | 12/21/19 | | | | | 03 | | + + + + + Procedures + +--------+ + + + | Procedure Name | Priori | Date/Time | Associated Diagnosis | Comments | | | ty | | | | + +--------+ + + + | PET CT SKULL BASE TO | Routin | 11/11/2019 | | Results for this | | MID THIGH | e | 12:00 AM | | procedure are in the | | | | PDT | | results section. | + +--------+ + + + | CT ABDOMEN PELVIS W | Routin | 09/25/2019 | | Results for this | | CONTRAST | e | 12:00 AM | | [...] section. | + +--------+ + + + from Last [address] Skull Base To Mid Thigh (11/11/2019 12:00 AM PDT) + + | Specimen [...] | | | + +---------+ + + CT Abdomen Pelvis w Contrast (09/25/2019 12:00 AM PDT) + + | Specimen [...] | | | + +---------+ + + XR Lumbar Spine 2 or 3 Vw [...] | | | + +---------+ + + from Last 3 Months Insurance +-------+--------+ +--------+ + +------+ | Payer | Benefi | Subscriber | Effect | Phone | Address | Type | | | t Plan | ID | yissel | | | | | | / | | Dates | | | | | | Group | | | | | | +-------+--------+ +--------+ + +------+ | MODA | MODA | [id number] | 06/10/19 | [phone] | [address] | PPO | | | [employer] | | 19-Pre | 9 | [phone] | | | | [place] | | sent | | [facility], | | | | [place] P[place] | | | | [place] [address] | | +-------+--------+ +--------+ + +------+ + +--------+ +--------+ + + | Guarantor Name | Accoun | Relation to | Date | Phone | Billing Address | | | t Type | Patient | of | | | | | | | | | | + +--------+ +--------+ + + | Suman Cortez | Person | Self [birth year] | [address] | | Sr. | al/Fam | | 1955 | [phone] | [place] | | | [place] | | | 0 (Home) | [phone] | + +--------+ +--------+ + + Advance Directives + + + + + | Type | Date Recorded | Patient | Explanation | | | | Curator Herbarium | | + + + + + | Power of | | | | | [employer]um Ten[employer] Psychiatrist | | | | + + + + + | Advance | | | | | Directive | | | | + + + + +"
--- OUTSIDE RECORDS SUMMARY | ~2019-12-02 | XMS | Encounter Summary ---
Demographics + + + | Address | [address] | | | [place] [address] | + + + | Home Phone | | + + + | Preferred Language | Unknown | + + + | Marital Status | | + + + | Scientology Affiliation | BIG | + + + [...] Team Providers + +------+ + | Care Station Master Name | Role | Phone | + [...] [address] | | | | | | [place], [place] | | | | | | [address] | | | +--------+ + + + [...]
--- OUTSIDE RECORDS SUMMARY | ~2019-12-02 | XMS | Clinical Summary ---
Demographics + + + | Address | [address] | | | [place] [address] | + + + | Home Phone | | + + + | Preferred Language | Unknown | + + + | Marital Status | | + + + | Hinduism Affiliation | BIG | + + + | Race | White | + + + | Ethnic Group | Not or | + + + Author + + + | Author | [facility] | + + + | Organization | [facility] | + + + | Address | Unknown | + + + | Phone | Unavailable | + + + Support + + +---------+ + | Name | Relationship | Address | Phone | + + +---------+ + | Jade Cortez | ECON | Unknown | | + + +---------+ + Care Team Providers + +------+ + | Care Machine Stuffer Name | Role | Phone | + +------+ + | Bonita Forbes MD | PCP | | + +------+ + Source Comments NADIA is fully live on both [facility] Ambulatory and [facility] InPatient.[facility] Allergies No Known Allergies Medications [...] + + + Last Filed Vital Signs + [...] + + Plan of Treatment + + +-------+ + | Health Maintenance | Due Date | Last | Comments | | | | Done | | + + +-------+ + | Pneumococcal | | | | | vaccination (1 of 1 | 4 | | | | - PPSV23) | | | | + + +-------+ + | Influenza (Flu) | | | | | vaccination (#1) | 0 | | | + + +-------+ + Results Not on filefrom Last 3 [...] + +------+ | MARGARITA RICH PEBB | AVILA | [email or web address] | 09/09/19 | [phone] | [address] | PPO | | | [place] | | 07-Pre | 7 | [id number] | | | | | | sent | | [place] | | | | | | | | [address] | | + +--------+ +--------+ + +------+ [...] | Self | [birth year] | [address] | | | aislinn/Manuel | | 1955 | [phone] | [address] [place], [place] | | | [place] | | | [address] (Home) | [phone] | + +--------+ +--------+ + +
--- OUTSIDE RECORDS SUMMARY | ~2019-12-02 | XMS | Encounter Summary ---
Demographics + + + | Address | [address] | | | [place] [address] | + + + | Home Phone | | + + + | Preferred Language | Unknown | + + + | Marital Status | | + + + | Presybeterian Affiliation | BIG | + + + [...] Providers + +------+ + | Care Manager Systems Name | Role | Phone | + [...] Pre-Admission | | 2018 | Orders | [place] | [address] | | | | | Oculoplastics at | Blvd [place], [place] | | | | | [address] | [address] | | | | | [address] | [phone] | | | | | [facility] [place] | | | | | | [facility], 5th floor | | | | | | [place] [address] | | | | | | [phone] | | | +--------+ + + + [...]
--- OUTSIDE RECORDS SUMMARY | ~2019-12-02 | XMS | Encounter Summary ---
Demographics + + + | Address | [address] | | | [place] [address] | + + + | Home Phone | | + + + | Preferred Language | Unknown | + + + | Marital Status | | + + + | Mormonism Affiliation | BIG | + + + | Race | White | + + + | Ethnic Group | Not or | + + + Author + + + | Author | [facility] | + + + | Organization | [facility] | + + + | Address | Unknown | + + + | Phone | Unavailable | + + + Support + + +---------+ + | Name | Relationship | Address | Phone | + + +---------+ + | Jade Cortez | ECON | Unknown | | + + +---------+ + Care Team Providers + +------+ + | Care Family Assistant Name | Role | Phone | [...] + + | 07/19/ | Hospital | [facility] | Abel Aguilar MD | | | 2018 | Encounter | [facility] [address] [facility] | [address] | | | | | Dr [facility] | [place], [place] | | | | | Kely Sweeney | [address] | | | | | [place], [place] | [phone] | | | | | [address] | [...] Discharge Instructions Instructions Vera Kincaid RN - [facility] Do not [...] and holidays, call and as k the artificial log machine operator to page the Eye Doctor metal fabrication supervisor. Return appointment date: Time: documented in [...] | 1 | 07/20/19 | | | [id number] | to the both eyelid | | [...] + documented as of this encounter H&P Abel Yang MD - 07/19/2017 8:05 AM PDTI have examined the patient, reviewed the pre-pro cedural history and physical, and I am not aware of any interval changes. Abel Aguilar M.D. Heel Scorer Ophthalmic Facial Plastic and Reconstructive Surgery documented [...] tolerated the procedure well. Abel Aguilar M.D. Heel Scorer Ophthalmic Facial Plastic and Reconstructive Surgery documented [...] Abel Walls | | | Maxim Aguilar. Heel Scorer Ophthalmic Facial Plastic and | | | [...] + + + | [facility] | [address] | [place], [place] | | | [facility] | [address] | [address] | | | TESTS | | | [...]
--- OUTSIDE RECORDS SUMMARY | ~2019-12-02 | XMS | Encounter Summary ---
Demographics + + + | Address | [address] | | | [place] [address] | + + + | Home Phone | | + + + | Preferred Language | Unknown | + + + | Marital Status | | + + + | Yazdanism Affiliation | BIG | + + + | Race | White | + + + | Ethnic Group | Not or | + + + Author + + + | Author | [facility] | + + + | Organization | [facility] | + + + | Address | Unknown | + + + | Phone | Unavailable | + + + Support + + +---------+ + | Name | Relationship | Address | Phone | + + +---------+ + | Jade Cortez | ECON | Unknown | | + + +---------+ + Care Team Providers + +------+ + | Care Film Archivist Name | Role | Phone | + +------+ + | Bonita Forbes MD | PCP | | + +------+ + Encounter Details +--------+ + + + + | Date | Type | Department | Care Team | Description | +--------+ + + + + | 07/19/ | Procedure | [facility] LOC | | | | 2018 | Pass | [address] [facility] | | | | | | [facility] | | | | | | [place] [address] | | | +--------+ + + + [...]
--- OUTSIDE RECORDS SUMMARY | ~2019-12-02 | XMS | Encounter Summary ---
Demographics + + + | Address | [address] [facility] | | | [place] [address] | + + + | Home Phone [...] Team Providers + +------+ + | Care Breast Surgeon Name | Role | Phone | + +------+ + | Bonita Forbes MD | PCP | | + +------+ + Encounter Details +--------+ + + + + | Date | Type | Department | Care Team | Description | +--------+ + + + + | 07/21/ | Telephone | [facility] | Abel Aguilar MD | | | 2018 | | [place] | [address] | | | | | Oculoplastics at | vd [place], [place] | | | | | [address] | [address] | | | | | [address] | [phone] | | | | | [facility] [place] | | | | | | [address] | | | | | | [place] [address] | | | | | | [phone] | | | +--------+ + + + [...] this encounter Miscellaneous Notes Telephone Encounter - Abel Aguilar MD - 07/21/2017 9:33 PM PDTTelephone call to check on pt POD #2. Doing fine, no concerns. Reviewed postop instructions, return to clinic as scheduled next week. Abel Aguilar M.D. Candy Depositing Machine Operator Ophthalmic Facial Plastic and Reconstructive Surgery documented in this encounter Plan of Treatment Not on filedocumented as of this encounter Visit Diagnoses Not on filedocumented in this encounter"
--- OUTSIDE RECORDS SUMMARY | ~2019-12-02 | XMS | Encounter Summary ---
Demographics + + + | Address | [address] | | | [place] [address] | + + + | Home Phone [...] Team Providers + +------+ + | Care Filter Tank Tender Helper Head Name | Role | Phone | + [...] | | | | | | | [address] | | | | | [address] | | | | | | | [place] | | | | | | | [facility] [place] | | | | | | | [address] | | | | | | | Phone: | | | | | | | [phone] | | | | | | | Fax: | | | | | | | [phone] | +--------+--------+ + + + + Encounter Details +--------+---------+ + + + | Date | Type | Department | Care Team | Description | +--------+---------+ + + + | 06/17/ | Office | [facility] | Abel Aguilar MD | Brow ptosis (Primary | | 2018 | Visit | [place] | [address] | Dx); | | | | Oculoplastics at | [facility] [place] | Dermatochalasis of | | | | [facility] [address] | [address] | both upper eyelids | | | | [address] | [phone] | | | | | [facility] [place] | | | | | | [facility], [address] [place] [address] | | | | | | [place] [address] | | | | | | [phone] | | | +--------+---------+ + + + [...] to bring CPAP on day of surgery Abel Gifford MD - 06/17/2017 1:20 PM PDTFormatting of this note might be differ ent from the original. Suman Cortez Sr. is a 61 [...] upper lid blepharoplasty and ptosis repair 2013 ([place]) Plan: Extensive discussion of options, patient wishes [...] I have reviewed and edited history and durable medical equipment technician documentation, and performed all elements to above examination documentation. Abel Aguilar M.D. Oxide Furnace Tender Ophthalmic Facial Plastic and Reconstructive Surgery documented [...]
--- OUTSIDE RECORDS SUMMARY | ~2019-12-02 | XMS | Encounter Summary ---
Demographics + + + | Address | [address] | | | [place] [address] | + + + | Home Phone | | + + + | Preferred Language | Unknown | + + + | Marital Status | | + + + | Tenriism Affiliation | BIG | + + + [...] Team Providers + +------+ + | Care Facilities Technician Name | Role | Phone | + +------+ + | Bonita Forbes MD | PCP | | + +------+ + Encounter Details +--------+---------+ + + + | Date | Type | Department | Care Team | Description | +--------+---------+ + + + | 06/28/ | Office | [facility] | Abel Aguilar MD | Dermatochalasis of | | 2018 | Visit | [place] | [address] | both upper eyelids | | | | Oculoplastics at | Blvd [place], [place] | (Primary Dx); Brow | | | | [place] [address] | [address] | ptosis | | | | [address] | [phone] | | | | | [facility] | | | | | | [facility], [facility] floor | | | | | | [place] [address] | | | | | | [phone] | | | +--------+---------+ + + + [...] as of this encounter Progress Notes Abel Aguilra MD - 06/28/2017 10:40 AM PDTFormatting of [...] upper lid blepharoplasty and ptosis repair 2013 ([place]) Plan: Extensive discussion of options, patient wishes [...] I have reviewed and edited history and manufacturing test technician documentation, and performed all elements to above examination documentation. Abel Aguilar M.D. Application Architect Manager Ophthalmic Facial Plastic and Reconstructive Surgery documented in this encou nter Plan of Treatment Not on filedocumented as of this encounter Procedures + +--------+ + + + | Procedure Name | Priori | Date/Time | Associated Diagnosis | Comments | | | ty | | | | + +--------+ + + + | CA VISUAL FIELD | Routin | 06/28/2017 | [...]
--- OUTSIDE RECORDS SUMMARY | ~2019-12-02 | XMS | Encounter Summary ---
Demographics + + + | Address | [address] | | | [place] [address] | + + + | Home Phone | | + + + | Preferred Language | Unknown | + + + | Marital Status | Unknown | + + + | Mandaeism Affiliation | Unknown | + + + | Race | Unknown | + + + | Ethnic Group | Unknown | + + + Author + + + | Author | [facility] | | | and [place] | + + + | Organization | [facility] | | | and [place] | + + + | Address | Unknown | + + + | Phone | Unavailable | + + + Care Team Providers + +------+ + | Care Payroll Director Name | Role | Phone | + +------+ + | Zachary Mercado NP | PCP | | + +------+ + Encounter Details +--------+ + + + + | Date | Type | Department | Care Team | Description | +--------+ + + + + | 11/30/ | [facility] | [facility] Provider, | | | 2020 | Exam | MED [facility] EXTER[facility] | MD [address] | | | | | IMAGING [address] | | | | | [address] | [place] [address] | | | | | [place] [address] | | | | | | [phone] | | | +--------+ + + + [...] + + documented in this encounter Results PET CT Skull Base To Mid [...]
--- OUTSIDE RECORDS SUMMARY | ~2019-12-02 | XMS | Encounter Summary ---
Demographics + + + | Address | [address] | | | [place] [address] | + + + | Home Phone | | + + + | Preferred Language | Unknown | + + + | Marital Status | Unknown | + + + | Religion Affiliation | Unknown | + + + | Race | Unknown | + + + | Ethnic Group | Unknown | + + + Author + + + | Author | [facility] | | | and [place] | + + + | Organization | [facility] | | | and [place] | + + + | Address | Unknown | + + + | Phone | Unavailable | + + + Care Team Providers + +------+ + | Care Cutter And Paster Press Clippings Name | Role | Phone | + +------+ + | Zachary Mercado NP | PCP | | + +------+ + Encounter Details +--------+ + + + + | Date | Type | Department | Care Team | Description | +--------+ + + + + | 11/30/ | [facility] | [facility] | Provider, | | | 2020 | Exam | MED CTR EXTERNAL | [address] | | | | | IMAGING [address] | [address] | | | | | [address] | [place] [address] | | | | | [place] [address] | | | | | | [phone] | | | +--------+ + + + [...] + + documented in this encounter Results CT Abdomen Pelvis w Contrast (09/25/2019 12:00 [...]
[~2019-12-02 06:26] MED LIST changes: +CEFDINIR300 MG PO; +LIDOCAINE1 EACH TOP; +METOPROLOL TART25 MG PO; +NICOTINE LOZENGE2 MG BUCCAL
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
[2019-12-02] MEDS ORDERED: GABAPENTIN300 MG PO (06:41)
[2019-12-02] MEDS ORDERED: ONDANSETRON ODT8 MG PO (06:41)
[2019-12-02] MEDS ORDERED: BENZONATATE100 MG PO (06:42)
== END 2019-12-02 06:55 | disposition home or self-care (01) ==
LOC: ED 06:26
DX: G89.29 Other chronic pain (principal); M25.552 Pain in left hip; J44.9 Chronic obstructive pulmonary disease, unspecified; E11.9 Type 2 diabetes mellitus without complications; F32.9 Major depressive disorder, single episode, unspecified; F43.10 Post-traumatic stress disorder, unspecified; F41.9 Anxiety disorder, unspecified; F17.200 Nicotine dependence, unspecified, uncomplicated; Z88.8 Allergy status to other drugs, medicaments and biological substances; Z79.899 Other long term (current) drug therapy
CPT/HCPCS: 99283

== ENCOUNTER 2020-02-12 12:18 | Emergency (ER) | payer OTHER ==
[~2020-02-12] VITALS: Ht 165.1 cm; Wt 86.2 kg
[~2020-02-12 12:18] MED LIST changes: +BENZONATATE100 MG PO; +GABAPENTIN300 MG PO; +ONDANSETRON ODT8 MG PO
--- OUTSIDE RECORDS SUMMARY | 2020-02-12 12:20 | XMS ---
PreManage Notification: [employer] Dynamics Manager Architect Events No recent Security Events currently on file CRITERIA MET - [facility] - Has Care Guidelines [facility]ON D[facility] Internal Medicine 01/05/2019-Current PHONE: Unknown Guidelines Source: [employer] [facility] Guidelines Date: 01/02/2019 Care Coordination: Mental health services provided by [employer].\T\nbsp; Please contact [employer] with mental health concerns.\T\nbsp; Suzy/Isidoro Yeager: [phone]\T\ nbsp; [place]: [phone]. Care History Medical/Surgical 09/15/2019 [facility] Recommendations made to Dr. Denton via [employer] works regarding respiratory medication changes. 09/15/2019 [facility] Patient has follow up with Dr. Denton today, 09/15/2019 09/08/2019 [facility] Patient has scheduled follow up with Dr. Denton on 09/15/2019 E.Danish VISIT COUNT (12 MO.) [address] [facility] TOTAL 5 NOTE: Visits indicate total known visits. 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) drug therapy - Post-traumatic stress disorder, unspecified - Nicotine dependence, unspecified, uncomplicated - Pain in left hip 09/25/2019 16:54 [facility] [place] TYPE: Emergency COMPLAINT: - LOW OXYGEN, RAPID HEART RATE 09/13/2019 10:55 [facility] [place] TYPE: Emergency COMPLAINT: - SOB DIAGNOSES: - Chronic obstructive pulmonary disease, unspecified - Hypoxemia - Allergy status to other drugs, medicaments and biological substances - Nicotine dependence, unspecified, uncomplicated - Anxiety disorder, unspecified - Radiculopathy, lumbar region - Shortness of breath - Tachycardia, unspecified - Type 2 diabetes mellitus without complications - Other fdc (current) drug therapy 09/05/2019 00:57 [facility] [place] TYPE: Emergency COMPLAINT: - SOB INPATIENT VISIT TRACKING (12 MO.) 09/25/2019 21:01 [facility] [place] TYPE: Medical Surgical COMPLAINT: - SEPSIS DIAGNOSES: - correction (current) use of oral hypoglycemic drugs - Supraventricular tachycardia - correction (current) use of oral hypoglycemic drugs - Sepsis, unspecified organism - Acute kidney failure, unspecified - Personal history of non-Hodgkin lymphomas - Other specified anxiety disorders - Severe sepsis without septic shock - Type 2 diabetes mellitus without complications - Type 2 diabetes mellitus without complications - Unspecified mood [affective] disorder - extermination inspector (current) use of inhaled steroids - Supraventricular tachycardia - Other fdc (current) drug therapy - Emphysema, unspecified - Personal history of non-Hodgkin lymphomas - Allergy status to other drugs, medicaments and biological substances - Unspecified mood [affective] disorder - Other specified anxiety disorders - Emphysema, unspecified - Acute kidney failure, unspecified - extermination inspector (current) use of inhaled steroids - Gastro-esophageal reflux disease without esophagitis - Other fdc (current) drug therapy - Gastro-esophageal reflux disease without esophagitis - Allergy status to other drugs, medicaments and biological substances 09/05/2019 00:58 [facility] [place] TYPE: Observation COMPLAINT: - HYPOXIA DIAGNOSES: - extermination inspector (current) use of oral hypoglycemic drugs - Gastro-esophageal reflux disease without esophagitis - Hypokalemia - Acute respiratory failure with hypoxia - Other nonspecific abnormal finding of lung field - Hypomagnesemia - Decreased white blood cell count, unspecified - Chronic obstructive pulmonary disease with (acute) exacerbation - Nicotine dependence, cigarettes, uncomplicated - Allergy status to other drugs, medicaments and biological substances - Dependence on other enabling machines and devices - Other laborer marine terminal (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
[2020-02-12] MEDS ORDERED: CYCLOBENZAPRINE10 MG PO (12:43)
[2020-02-12] MEDS ORDERED: PREGABALIN100 MG PO (12:44)
[2020-02-12] MEDS ORDERED: COMBIVENT RESPIM4 GM INH (14:53)
[2020-02-12] MEDS ORDERED: VENLAFAXINE HCL75 M1 PO (14:55)
[2020-02-12] MEDS ORDERED: TOPROL XL25 MG PO (14:56)
[2020-02-12] MEDS ORDERED: PERCOCET 5-3251 EACH PO (15:05)
[2020-02-12] MEDS ORDERED: PREDNISONE20 MG PO (15:05)
== END 2020-02-12 15:18 | disposition home or self-care (01) ==
LOC: ED 12:18
DX: M54.42 Lumbago with sciatica, left side (principal); J44.9 Chronic obstructive pulmonary disease, unspecified; E11.9 Type 2 diabetes mellitus without complications; F17.200 Nicotine dependence, unspecified, uncomplicated; Z88.8 Allergy status to other drugs, medicaments and biological substances; Z79.899 Other long term (current) drug therapy; Z79.84 Long term (current) use of oral hypoglycemic drugs
CPT/HCPCS: 96374; 96375; 96376; 99283-25; J1100; J2270; J2405

== ENCOUNTER 2020-03-30 07:00 | Day surgery (SDC) | payer OTHER ==
[~2020-03-30] VITALS: Ht 165.1 cm; Wt 86.4 kg
[~2020-03-30 07:00] MED LIST changes: +CYCLOBENZAPRINE10 MG PO; +PERCOCET 5-3251 EACH PO; +PREGABALIN100 MG PO; +TOPROL XL25 MG PO; +VENLAFAXINE HCL75 M1 PO
[2020-03-30] MEDS ORDERED: BUSPIRONE HCL30 MG PO (07:09)
--- NOTE | 2020-03-30 08:14 | NUR ---
PT ALERT, ORIENTED AND SUPPORTED BY HIS MAT. PT HAS BOTH SCOPES PREVIOUS, ALL QUSTIONS ASKED ANSWERED. PT REQUESTED PRAYER, WILL FOLLOW NEEDED
--- NOTE | 2020-03-30 11:24 | NUR ---
03/30/20 1124 Sheets,Lexy 0928 PT ARRIVED TO PACU WITH ORAL AIRWAY IN PLACE AND PT NONAROUSABLE TO PAINFUL STIMULI, VSS. CBG 114. RESP EVEN AND UNLABORED ON 10L VIA MASK. 0935 BP DECREASED AND PT REMAINS NONAROUSABLE TO PAINFUL STIMULI, PT ROLL TO BACK AND NO CHANGE IN BP. MOISTURE METER READER CALLED WITH NO ANSWER. 0940 MOISTURE METER READER DUONG IN PACU AND NEW ORDER RECEIVED. 0949 BP MEDICATION GIVEN PER ORDER. 0952 BP INCREASING AND PT WAKES TO PAINFUL STIMULI AND ORAL AIRWAY REMOVED. PT DENIES CONCERNS AND IS REORIENTED TO PACU. 0957 O2 REMOVED AND PT REPORTS PAIN IN LOWER BACK AND REPORTS THIS IS BASELINE AND PT REPORTS SMALL AMOUNT OF DIZZINESS. VSS. 1006 PT RPEORTS DIZZINESS IS GONE AND ASKED TO SIT UP ON EDGE OF BED DUE TO BACK PAIN. \ 1015 PT ASKING TO USE RESTROOM. PT WALKED TO BATHROOM WITH RN AT PT SIDE. PT SLIGHTLY UNSTEADY ON FEET AND WC USED. PT REPORTS PASSING GAS IN BATHROOM. 1022 PT BACK TO BED VIA WC AND PT GETTING DRESSED WITH RN AT BEDSIDE, PT ASKED TO PULL CAR UP. 1028 DC INSTRUCTIONS GIVEN AND PAPERWORK GIVEN. ALL BELONGINGS WITH PT AND PT DC VIA WC.
--- NOTE | 2020-03-31 07:21 | OR ---
[facility] [address], [place] [address] Signed DATE OF OPERATION: 03/30/2020 SURGEON: Amaya Mota MD PREOPERATIVE DIAGNOSES: 1. History of Salazar's esophagus. 2. Gastroesophageal reflux disease. 3. History of vocal cord polyps. 4. Personal history of colonic polyps starting age 47. POSTOPERATIVE DIAGNOSES: 1. Mild patchy diffuse gastroduodenitis. 2. Small hiatal hernia (36-33 cm). 3. 5 mm polyps at 60, 65, 80, 90, 100 cm (x4), 110, and 120 cm. PROCEDURES: 1. EGD with CLOtest and biopsies of the pyloric bulb, antrum and GE junction. 2. Colonoscopy with hot biopsies. ESTIMATED BLOOD LOSS: None. INDICATIONS: Natividad is a 64-year-old gentleman, asked to see me for upper and lower endoscopy. He describes starting his colonoscopies at age 47. He said every time they checked him, he has polyps. He has been going every 5 years. His last colonoscopy was in 2014 with [facility] in [place]. Currently, he has no lower GI complaints. There is no family history of colon cancer or polyps. Also, there is some concern that he has history of Salazar's esophagus. He said he had benign vocal cord polyps removed in the past. He said there was a shortage on Protonix, so he switched over to Prilosec. He thinks his last upper endoscopy was more than 5 years ago with [facility] in [place]. He has been on and off with his alcoholism. He said he has not drank in over a year. He likes to vape and also smokes a few cigars throughout the week. He also describes non-Hodgkin's lymphoma in his abdomen and said it was treated. In the office, I gave him pamphlets on both upper and lower endoscopy. We had reviewed those together in detail. He understands these 2 tests quite well. He understands there is risk including, but not limited to gas bloating, crampy abdominal pain, bleeding, perforation requiring surgery, and missed diagnosis. Also because of his history of alcoholism and drug abuse, he declines narcotics . Consequently, we asked that an anesthesia provider to help us with increased monitoring sedation with propofol. Also, he has very round full face, Electronically Signed By: AMAYA MOTA MD 03/31/20 0721 PATIENT NAME: NATIVIDAD FERMIN OPERATIVE REPORT DATE OF : 59 REPORT #: [id number] PHYSICIAN: AMAYA MOTA MD PCP: JUAN RAMON NAVARRETE MD REPORT IS CONFIDENTIAL AND NOT TO BE RELEASED WITHOUT AUTHORIZATION [facility] [address], [place] [address] Signed heavy neck. He had expressed understanding and wished to proceed. PROCEDURE NOTE: Natividad was taken into our endoscopy suite and placed in the supine semi-recumbent position. He was given IV sedation with propofol per our nurse laborer gold leaf. A bite block was utilized for the case. The adult gastroscope was introduced and advanced out in the third portion of the duodenum under direct visualization camera without difficulty. The pyloric channel showed some patchy erythematous changes as well as did the stomach. We went and took biopsies from the pyloric bulb and antrum for pathologic review. An additional biopsy came out of the antrum for CLOtest. No ulcerations. Upon retroflexion of scope, he does have just a small hiatal hernia. It measured out from 36 to 33 cm. He does have some mild disruption to the Z-line, but no visible obvious Salazar's esophagus. We took two biopsies along the Z-line for pathologic review. No distal esophagitis. The middle and upper esophagus were unremarkable. After this, the gas had been suctioned out and the gastroscope removed. Natividad tolerated his upper endoscopy quite well. Natividad was then rotated into the left lateral decubitus position. He was maintained on IV sedation with propofol per our nurse laborer gold leaf. A digital rectal exam was performed and he had a little external hemorrhoid tissue. Prostate is a little indurated. The adult colonoscope had been introduced, advanced all around into the cecum under direct visualization of camera without difficulty. His prep was overall good. There were a couple areas of liquid particulate stool matter, most of that was irrigated and suctioned out. However, he would probably benefit from a double bowel prep in the future or at least a bowel prep in one-half. The scope was then slowly withdrawn. We had taken pictures throughout for photodocumentation. He had the above-mentioned polyps biopsied and destroyed completely with the hot biopsy forceps. He had other smaller polyps 3-4 mm in diameter were simply cauterized with our hot biopsy forceps. The right colon was unremarkable, everything was in the transverse colon and distal. The rectum itself had no polyps. Upon retroflexion of scope, he had no evidence of internal hemorrhoids. The gas was then suctioned out and the colonoscope removed. Natividad tolerated the procedure quite well. RECOMMENDATIONS: I will see Natividad back in my office in 7 to 14 days to review his results. He probably should consider a double bowel prep in the future with respect to his multiple polyps. He might consider coming within 1-3 years. Amaya Mota MD Electronically Signed By: AMAYA MOTA MD 03/31/20 0721 PATIENT NAME: NATIVIDAD FERMIN SR OPERATIVE REPORT DATE OF : 59 REPORT #: [id number] PHYSICIAN: AMAYA MOTA MD PCP: JUAN RAMON NAVARRETE MD REPORT IS CONFIDENTIAL AND NOT TO BE RELEASED WITHOUT AUTHORIZATION [address] [address] Signed ALB/MODL /[id number] cc: MD Amaya Gonzalez MD Copies: JUAN RAMON NAVARRETE MD, ANDREW L MD ~ Electronically Signed By: AMAYA MOTA MD 03/31/20 0721 PATIENT NAME: NATIVIDAD FERMIN OPERATIVE REPORT DATE OF : 59 REPORT #: [id number] PHYSICIAN: AMAYA MOTA MD PCP: JUAN RAMON NAVARRETE MD REPORT IS CONFIDENTIAL AND NOT TO BE RELEASED WITHOUT AUTHORIZATION
--- NOTE | 2020-03-31 16:06 | PATH ---
[facility] [address], [place] [address] Signed SPECIMEN(S): A DUODENAL BULB BIOPSY SPECIMEN(S): B ANTRUM/PYLORUS BIOPSY SPECIMEN(S): C GE JUNCTION SPECIMEN(S): D COLON POLYP AT 60 CM SPECIMEN(S): E COLON POLYP AT 65 CM SPECIMEN(S): F COLON POLYP AT 80 CM SPECIMEN(S): G COLON POLYP AT 90 CM SPECIMEN(S): H COLON POLYP AT 100 CM SPECIMEN(S): I COLON POLYP AT 110 CM SPECIMEN(S): J COLON POLYP AT 120 CM SPECIMEN SOURCE: A. DUODENAL BULB BIOPSY B. ANTRUM/PYLORUS BIOPSY C. GE JUNCTION D. COLON POLYP AT 60 CM E. COLON POLYP AT 65 CM F. COLON POLYP AT 80 CM G. COLON POLYP AT 90 CM H. COLON POLYP AT 100 CM I. COLON POLYP AT 110 CM J. COLON POLYP AT 120 CM CLINICAL HISTORY: Esophagogastroduodenoscopy, colonoscopy. GERD, history of Salazar's esophagitis, history of colon polyps. Rule out gastroduodenitis. MICROSCOPIC DESCRIPTION: Histologic sections of all submitted blocks are examined by light microscopy. These findings, together with the gross examination, support the pathologic diagnosis. FINAL PATHOLOGIC DIAGNOSIS: A. Duodenum, bulb, biopsy: - Duodenal mucosa with no histopathologic abnormality. - Negative for increased intraepithelial lymphocytes. - Negative for dysplasia or malignancy. B. Stomach, antrum/pylorus, biopsy: - Antral mucosa with mild reactive gastropathy. - Negative for Helicobacter organisms on HE stain. - Negative for dysplasia or malignancy. C. Gastroesophageal junction, biopsy: PATIENT NAME: NATIVIDAD FERMIN SR PATHOLOGY DATE OF : 59 REPORT #: [id number] PHYSICIAN: MARI PATHOLOGY PCP: JUAN RAMON NAVARRETE MD REPORT IS CONFIDENTIAL AND NOT TO BE RELEASED WITHOUT AUTHORIZATION [facility] [address], [place] [address] Signed - Squamocolumnar junctional mucosa with intestinal metaplasia arising in a background of mild chronic inflammation and reactive epithelial changes. - Negative for dysplasia or malignancy. D. Colon, polyp at 60 cm, polypectomy: - Fragments of tubular adenoma. - Negative for high-grade dysplasia or malignancy. E. Colon, polyp at 65 cm, polypectomy: - Fragments of tubular adenoma. - Negative for high-grade dysplasia or malignancy. F. Colon, polyp at 80 cm, polypectomy: - Fragments of tubular adenoma. - Negative for high-grade dysplasia or malignancy. G. Colon, polyp at 90 cm, polypectomy: - Tubular adenoma. - Negative for high-grade dysplasia or malignancy. H. Colon, polyp at 100 cm, polypectomy: - Fragments of tubular adenoma. - Negative for high-grade dysplasia or malignancy. I. Colon, polyp at 110 cm, polypectomy: - Fragments of tubular adenoma. - Negative for high-grade dysplasia or malignancy. J. Colon, polyp at 120 cm, polypectomy: - Tubular adenoma. - Negative for high-grade dysplasia or malignancy. NAL:cml:C2NR GROSS DESCRIPTION: Ten specimens are received in ten containers, labeled "CLEMENT." A. The specimen, labeled "CLEMENT, duodenal bulb biopsy," is received in formalin and consists of one laureano soft tissue fragment that measures 0.2 cm in greatest dimension. The specimen is entirely submitted in cassette (A1). B. The specimen, labeled "CLEMENT, antrum biopsy," is received in formalin and consists of one laureano soft tissue fragment that measures 0.4 cm in greatest dimension. The specimen is entirely submitted in cassette (B1). C. The specimen, labeled "CLEMENT, GE junction biopsy," is received in formalin and consists of two laureano soft tissue fragments that measure 0.3-0.4 cm in greatest dimension. The specimen is entirely submitted in cassette (C1). D. The specimen, labeled "CLEMENT, colon polyp at 60 cm," is received in formalin PATIENT NAME: NATIVIDAD FERMIN PATHOLOGY DATE OF : 59 REPORT #: [id number] PHYSICIAN: MARI CHAWLA PCP: JUAN RAMON NAVARRETE MD REPORT IS CONFIDENTIAL AND NOT TO BE RELEASED WITHOUT AUTHORIZATION [address] [address] Signed and consists of two laureano soft tissue fragments that measure 0.1-0.2 cm in greatest dimension. The specimen is entirely submitted in cassette (D1). E. The specimen, labeled "CLEMENT, colon polyp at 65 cm," is received in formalin and consists of two laureano soft tissue fragments that measure 0.2 cm in greatest dimension. The specimen is entirely submitted in cassette (E1). F. The specimen, labeled "CLEMENT, colon polyp at 80 cm," is received in formalin and consists of two laureano soft tissue fragments that measure 0.2 cm in greatest dimension. The specimen is entirely submitted in cassette (F1). G. The specimen, labeled "CLEMENT, colon polyp at 90 cm," is received in formalin and consists of two laureano soft tissue fragments that measure 0.1 cm in greatest dimension. The specimen is entirely submitted in cassette (G1). H. The specimen, labeled "CLEMENT, colon polyp at 100 cm," is received in formalin and consists of four laureano soft tissue fragments that measure 0.1-0.2 cm in greatest dimension. The specimen is entirely submitted in cassette (H1). I. The specimen, labeled "CLEMENT, colon polyp at 110 cm," is received in formalin and consists of three laureano soft tissue fragments that measure 0.2-0.3 cm in greatest dimension. The specimen is entirely submitted in cassette (I1). J. The specimen, labeled "CLEMENT, colon polyp at 120 cm," is received in formalin and consists of one laureano soft tissue fragment that measures 0.2 cm in greatest dimension. The specimen is entirely submitted in cassette (J1). JS (under the direct supervision of a pathologist) The Gross Description was prepared using a voice recognition system. The report was reviewed for accuracy; however, sound-alike word errors, addition and/or deletions may occur. If there is any question about this report, please contact Client Services. PERFORMING LABORATORY: The technical component was performed by [facility] [address] (Staff Physician: Giovanna Odonnell MD; CLIA# [id number]). [facility] [address] [place] [address] (CLIA# [id number]). PATIENT NAME: NATIVIDAD FERMIN PATHOLOGY DATE OF : 59 REPORT #: [id number] PHYSICIAN: MARI PATHOLOGY PCP: JUAN RAMON NAVARRETE MD REPORT IS CONFIDENTIAL AND NOT TO BE RELEASED WITHOUT AUTHORIZATION [address] [address] Signed Diagnostician: Linette Araujo MD Pathologist Electronically Signed 03/31/2020 Copies: ~ PATIENT NAME: NATIVIDAD FERMIN PATHOLOGY DATE OF : 59 REPORT #: [id number] PHYSICIAN: MARI PATHOLOGY PCP: JUAN RAMON NAVARRETE MD REPORT IS CONFIDENTIAL AND NOT TO BE RELEASED WITHOUT AUTHORIZATION
== END 2020-03-30 10:28 | disposition home or self-care (01) ==
LOC: DS 07:00 → OPS 07:00 → DS 07:45 → OPS 10:28
PROVIDERS: ATTEND Colon & Rectal Surgery
PROC: 0DB68ZX Excision of Stomach, Via Natural or Artificial Opening Endoscopic, Diagnostic (ICD-10-PCS; 2020-03-30)
PROC: 0DBE8ZX Excision of Large Intestine, Via Natural or Artificial Opening Endoscopic, Diagnostic (ICD-10-PCS; 2020-03-30)
PROC: 0DB48ZX Excision of Esophagogastric Junction, Via Natural or Artificial Opening Endoscopic, Diagnostic (ICD-10-PCS; principal; 2020-03-30 07:45)
PROC: 0DB78ZX Excision of Stomach, Pylorus, Via Natural or Artificial Opening Endoscopic, Diagnostic (ICD-10-PCS; 2020-03-30 07:45)
DX: K29.90 Gastroduodenitis, unspecified, without bleeding (principal); K44.9 Diaphragmatic hernia without obstruction or gangrene; D12.6 Benign neoplasm of colon, unspecified; K21.9 Gastro-esophageal reflux disease without esophagitis; F17.210 Nicotine dependence, cigarettes, uncomplicated; J44.9 Chronic obstructive pulmonary disease, unspecified; E11.9 Type 2 diabetes mellitus without complications; I10 Essential (primary) hypertension; F32.9 Major depressive disorder, single episode, unspecified; G89.29 Other chronic pain; C85.93 Non-Hodgkin lymphoma, unspecified, intra-abdominal lymph nodes; Z86.010 Personal history of colon polyps; Z87.898 Personal history of other specified conditions; Z79.84 Long term (current) use of oral hypoglycemic drugs; Z79.890 Hormone replacement therapy; Z88.5 Allergy status to narcotic agent; Z88.8 Allergy status to other drugs, medicaments and biological substances
CPT/HCPCS: 86677; J1720; J2405; J2704; J7121

== ENCOUNTER 2020-08-12 10:04 | Emergency (ER) | payer OTHER ==
[~2020-08-12] VITALS: Ht 165.1 cm; Wt 86.2 kg
--- OUTSIDE RECORDS SUMMARY | 2020-08-12 10:08 | XMS ---
PreManage Notification: NATIVIDAD FERMIN Security Model Maker Events No recent Security Events currently on file CRITERIA MET - [facility] - [facility] Care Guidelines [facility] TURNER DENTONLM Internal Medicine 01/05/2019-Current PHONE: Unknown Care Guidelines exist for the following facilities: [facility] ( 01/02/2019 ) Care History Medical/Surgical 09/15/2019 [facility] Recommendations made to Dr. Denton via Eclinical works regarding respiratory medication changes. 09/15/2019 [facility] Patient has follow up with Dr. Denton today, 09/15/2019 09/08/2019 [facility] Patient has scheduled follow up with Dr. Denton on 09/15/2019 EAndreia VISIT COUNT (12 MO.) 6 [facility] TOTAL 6 NOTE: Visits indicate total known visits. ED/UCC VISIT TRACKING (12 MO.) 08/12/2020 10:[address] [facility] [place] TYPE: Emergency COMPLAINT: - WEAKNESS,NAUSEA,COLD SWEATS 02/12/2020 12:19 [facility] [place] TYPE: Emergency COMPLAINT: - BACK PAIN NON INJURY DIAGNOSES: - Allergy status to other drugs, medicaments and biological substances - Chronic obstructive pulmonary disease, unspecified - Nicotine dependence, unspecified, uncomplicated - jail (current) use of oral hypoglycemic drugs - Sciatica, left side - Lumbago with sciatica, left side - Other long term acute care registered nurse (current) drug therapy - Allergy status to other drugs, medicaments and biological substances - Lumbago with sciatica, left side - Type 2 diabetes mellitus without complications 12/02/2019 06:27 [facility] [place] TYPE: Emergency COMPLAINT: - LEFT HIP PAIN NON INJURY DIAGNOSES: - Type 2 diabetes mellitus without complications - Other chronic pain - Anxiety disorder, unspecified - Chronic obstructive pulmonary disease, unspecified - Major depressive disorder, single episode, unspecified - Allergy status to other drugs, medicaments and biological substances - Other long term acute care registered nurse (current) drug therapy - Post-traumatic stress disorder, [...] 2 diabetes mellitus without complications - Other half-way (current) drug therapy 09/05/2019 00:57 [facility] [place] TYPE: Emergency COMPLAINT: - SOB INPATIENT VISIT TRACKING (12 MO.) 09/25/2019 21:01 [facility] [place] TYPE: Medical Surgical COMPLAINT: - SEPSIS DIAGNOSES: - termite inspector (current) use of oral hypoglycemic drugs - Supraventricular tachycardia - termite inspector (current) use of oral hypoglycemic drugs - Sepsis, unspecified organism - Acute kidney failure, unspecified - Personal history of non-Hodgkin lymphomas - Other specified anxiety disorders - Severe sepsis without septic shock - Type 2 diabetes mellitus without complications - Type 2 diabetes mellitus without complications - Unspecified mood [affective] disorder - jail (current) use of inhaled steroids - Supraventricular tachycardia - Other long term acute care registered nurse (current) drug therapy - Emphysema, unspecified - Personal history of non-Hodgkin lymphomas - Allergy status to other drugs, medicaments and biological substances - Unspecified mood [affective] disorder - Other specified anxiety disorders - Emphysema, unspecified - Acute kidney failure, unspecified - termite inspector (current) use of inhaled steroids - Gastro-esophageal reflux disease without esophagitis - Other half-way (current) drug therapy - Gastro-esophageal reflux disease without esophagitis - Allergy status to other drugs, medicaments and biological substances 09/05/2019 00:[address] [facility] [place] TYPE: Observation COMPLAINT: - HYPOXIA DIAGNOSES: - termite inspector (current) use of oral hypoglycemic drugs [...] other enabling machines and devices - Other half-way (current) drug therapy - Type 2 diabetes mellitus without complications - Thrombocytopenia, unspecified - Other specified anxiety disorders - Shortness of breath - Localized enlarged lymph nodes - Post-traumatic stress disorder, unspecified [email or web address]
[2020-08-12] MEDS ORDERED: QUETIAPINE FUMA25 MG PO (10:25)
[2020-08-12] MEDS ORDERED: VITAMIN D21250 MCG PO (10:26)
[2020-08-12] MEDS ORDERED: PREGABALIN100 MG PO (10:26)
[2020-08-12] MEDS ORDERED: NALTREXONE HCL50 MG PO (10:26)
[2020-08-12] MEDS ORDERED: DICYCLOMINE HCL10 MG PO (14:21)
[2020-08-12] MEDS ORDERED: ZOFRAN4 MG PO (14:21)
--- NOTE | 2020-08-12 17:32 | EKG ---
[facility] [address] [place] [address] Signed Sinus bradycardia Septal infarct (cited on or before 05-SEP-2019) Abnormal ECG When compared with ECG of 25-SEP-2019 17:06, Vent. rate has decreased BY 47 BPM Confirmed by BRIDGETTE PALACIOS MD ([id number]) on 08/12/2020 5:32:36 PM Electronically Signed By: BRIDGETTE PALACIOS MD 08/12/20 1732 PATIENT NAME: NATIVIDAD FERMIN Electrocardiogram DATE OF : 59 PHYSICIAN: BRIDGETTE PALACIOS MD REPORT #: [id number] REPORT IS CONFIDENTIAL AND NOT TO BE RELEASED WITHOUT AUTHORIZATION
== END 2020-08-12 14:30 | disposition home or self-care (01) ==
LOC: ED 10:04
DX: R11.2 Nausea with vomiting, unspecified (principal); R19.7 Diarrhea, unspecified; J43.9 Emphysema, unspecified; E11.9 Type 2 diabetes mellitus without complications; F17.200 Nicotine dependence, unspecified, uncomplicated; Z88.8 Allergy status to other drugs, medicaments and biological substances; Z88.5 Allergy status to narcotic agent; Z79.899 Other long term (current) drug therapy; Z79.52 Long term (current) use of systemic steroids; Z79.84 Long term (current) use of oral hypoglycemic drugs
CPT/HCPCS: 71045; 80053; 81001; 83690; 83735; 84484; 85025; 93005; 93010; 96374; 99284-25; A9270; J2405; J7030

== ENCOUNTER 2020-11-05 19:17 | Emergency (ER) | payer OTHER ==
[~2020-11-05] VITALS: Ht 165.1 cm; Wt 83.9 kg
[~2020-11-05 19:17] MED LIST changes: +DICYCLOMINE HCL10 MG PO; +NALTREXONE HCL50 MG PO; +VITAMIN D21250 MCG PO; +ZOFRAN4 MG PO
--- OUTSIDE RECORDS SUMMARY | 2020-11-05 19:20 | XMS ---
PreManage Notification: NATIVIDAD FERMIN Security Almond Huller Events No recent Security Events currently on file CRITERIA MET - [facility] - [facility] - Has Care Guidelines CARE PROVIDERS TURNER NAVARRETELM Internal Medicine 01/05/2019-Current PHONE: Unknown Care Guidelines exist for the following facilities: [facility] ( 01/02/2019 ) Care History Medical/Surgical 09/15/2019 [facility] Recommendations made to Dr. Navarrete via Eclinical works regarding respiratory medication changes. 09/15/2019 [facility] Patient has follow up with Dr. Navarrete today, 09/15/2019 09/08/2019 [facility] Patient has scheduled follow up with Dr. Navarrete on 09/15/2019 EAndreia VISIT COUNT (12 MO.) [address] [facility] [address] [facility] [place] TOTAL 4 NOTE: Visits indicate total known visits. ED/UCC VISIT TRACKING (12 MO.) 11/05/2020 19:18 [facility] [place] TYPE: Emergency COMPLAINT: - POST OP PROBLEM 08/12/2020 10:05 [facility] [place] TYPE: Emergency COMPLAINT: - WEAKNESS,NAUSEA,COLD SWEATS DIAGNOSES: - Emphysema, unspecified - Allergy status to narcotic agent - intermission coordinator (current) use of systemic steroids - Nausea with vomiting, unspecified - Type 2 diabetes mellitus without complications - Diarrhea, unspecified - [facility] (current) use of oral hypoglycemic drugs - Other halfway (current) drug therapy - Allergy status to other drugs, medicaments and biological substances - Nicotine dependence, unspecified, uncomplicated 02/12/2020 12:19 [facility] [place] TYPE: Emergency COMPLAINT: - BACK PAIN NON INJURY DIAGNOSES: - Allergy status to other drugs, medicaments and biological substances - Chronic obstructive pulmonary disease, unspecified - Nicotine dependence, unspecified, uncomplicated - intermission coordinator (current) use of oral hypoglycemic drugs - Sciatica, left side - Lumbago with sciatica, left side - Other manager terminal (current) drug therapy - Allergy status [...] drugs, medicaments and biological substances - Other halfway (current) drug therapy - Post-traumatic stress disorder, unspecified - Nicotine dependence, unspecified, uncomplicated - Pain in left hip INPATIENT VISIT TRACKING (12 MO.) 11/01/2020 07:37 [facility] TYPE: Inpatient DIAGNOSES: - Malignant neoplasm of unspecified part of left bronchus or lung 11/01/2020 05:48 [facility] TYPE: Surgery DIAGNOSES: - Malignant neoplasm of lower lobe, left bronchus or lung - Malignant neoplasm of unspecified part of left bronchus or lung [email or web address]
[2020-11-05] MEDS ORDERED: ROSUVASTATIN CA20 MG PO (19:31)
[2020-11-05] MEDS ORDERED: VENTOLIN HFA18 GM INH (19:31)
== END 2020-11-05 20:30 | disposition home or self-care (01) ==
LOC: ED 19:17
DX: L76.32 Postprocedural hematoma of skin and subcutaneous tissue following other procedure (principal); J43.9 Emphysema, unspecified; E11.9 Type 2 diabetes mellitus without complications; F43.10 Post-traumatic stress disorder, unspecified; F17.200 Nicotine dependence, unspecified, uncomplicated; Z88.8 Allergy status to other drugs, medicaments and biological substances; Z88.5 Allergy status to narcotic agent; Z79.899 Other long term (current) drug therapy; Z79.52 Long term (current) use of systemic steroids; Z79.84 Long term (current) use of oral hypoglycemic drugs
CPT/HCPCS: 99283

== ENCOUNTER 2021-01-09 10:31 | Emergency (ER) | payer OTHER ==
[~2021-01-09] VITALS: Ht 165.1 cm; Wt 83.9 kg
[~2021-01-09 10:31] MED LIST changes: +ANORO ELLIPTA1 EACH INH; +BUSPIRONE HCL15 MG; +CARBOPLATI10 MG/1 ML IV; +CLONIDINE HCL0.1 M1; -CLONIDINE HCL0.2 MG PO; +DECADRON4 MG PO; +HYDROCODON-ACE1 EAC8 PO; +LIDODERM1 EACH TD; +METFORMIN HCL500 M2; +PRILOSEC OTC20 MG; +ROSUVASTATIN CA20 MG PO; +SEROQUEL25 MG PO; -SILDENAFIL20 MG PO; +VIAGRA50 MG; +ZESTRIL5 MG PO; +[UNRECOGNIZED DRUG - OTHER] IV
--- OUTSIDE RECORDS SUMMARY | 2021-01-09 10:34 | XMS ---
PreManage Notification: NATIVIDAD FERMIN Security Manager Of Investigations Events No recent Security Events currently on file CRITERIA MET - [facility] - [facility] - Has Care Guidelines CARE PROVIDERS TURNER DENTONLM Internal Medicine 01/05/2019-Current PHONE: Unknown Care Guidelines exist for the following facilities: [facility] ( 01/02/2019 ) Care History Medical/Surgical 09/15/2019 [facility] Recommendations made to Dr. Denton via Eclinical works regarding respiratory medication changes. 09/15/2019 [facility] Patient has follow up with Dr. Denton today, 09/15/2019 09/08/2019 [facility] Patient has scheduled follow up with Dr. Denton on 09/15/2019 EAndreia VISIT COUNT (12 MO.) [address] [facility] [place]. TOTAL 5 NOTE: Visits indicate total known visits. ED/UCC VISIT TRACKING (12 MO.) 01/09/2021 10:32 [facility] [place]: Emergency COMPLAINT: - PAIN IN CHEST/BACK/L SIDE 11/22/2020 00:[address] [facility] [place] TYPE: Emergency COMPLAINT: - DIFFICULTY BREATHING, COLD CHILLS 11/05/2020 19:18 [facility] [place] TYPE: Emergency COMPLAINT: - POST OP PROBLEM DIAGNOSES: - Allergy status to narcotic agent - Hemorrhage, not elsewhere classified - Postprocedural hematoma of skin and subcutaneous tissue following other procedure - Other truck terminal manager (current) drug therapy - Emphysema, unspecified - Post-traumatic stress disorder, unspecified - Allergy status to other drugs, medicaments and biological substances - Type 2 diabetes mellitus without complications - terminal system operator (current) use of systemic steroids - residential (current) use of oral hypoglycemic drugs - Nicotine dependence, unspecified, uncomplicated 08/12/2020 10:05 [facility] [place] TYPE: Emergency COMPLAINT: - WEAKNESS,NAUSEA,COLD SWEATS DIAGNOSES: - Emphysema, unspecified - Allergy status to narcotic agent - terminal system operator (current) use of systemic steroids - Nausea with vomiting, unspecified - Type 2 diabetes mellitus without complications - Diarrhea, unspecified - terminal system operator (current) use of oral hypoglycemic drugs - Other chcf (current) drug therapy - Allergy status to other drugs, medicaments and biological substances - Nicotine dependence, unspecified, uncomplicated 02/12/2020 12:19 [facility] [place] TYPE: Emergency COMPLAINT: - BACK PAIN NON INJURY DIAGNOSES: - Allergy status to other drugs, medicaments and biological substances - Chronic obstructive pulmonary disease, unspecified - Nicotine dependence, unspecified, uncomplicated - residential (current) use of oral hypoglycemic drugs - Sciatica, left side - Lumbago with sciatica, left side - Other chcf (current) drug therapy - Allergy status to other drugs, medicaments and biological substances - Lumbago with sciatica, left side - Type 2 diabetes mellitus without complications INPATIENT VISIT TRACKING (12 MO.) 11/01/2020 05:48 [facility] [place] TYPE: Cardiac Surgery DIAGNOSES: - Malignant neoplasm of lower lobe, left bronchus or lung - Malignant neoplasm of unspecified part of left bronchus or lung 11/01/2020 00:00 [facility] [place] TYPE: Inpatient DIAGNOSES: - Malignant neoplasm of unspecified part of left bronchus or lung [email or web address]
[2021-01-09] MEDS ORDERED: OXYCODONE HCL5 MG PO (14:08)
--- NOTE | 2021-01-10 07:45 | EKG ---
[facility] [address] [place], [place] [address] Signed Normal sinus rhythm Normal ECG When compared with ECG of 12-AUG-2020 10:48, Criteria for Septal infarct are no longer present Confirmed by BRIDGETTE PALACIOS MD ([id number]) on 01/10/2021 7:44:52 AM Electronically Signed By: BRIDGETTE PALACIOS MD 01/10/21 0745 PATIENT NAME: NATIVIDAD FERMIN Electrocardiogram DATE OF : 59 PHYSICIAN: BRIDGETTE PALACIOS MD REPORT #: [id number] REPORT IS CONFIDENTIAL AND NOT TO BE RELEASED WITHOUT AUTHORIZATION
== END 2021-01-09 14:30 | disposition home or self-care (01) ==
LOC: ED 10:31
DX: R07.89 Other chest pain (principal); J43.9 Emphysema, unspecified; E11.22 Type 2 diabetes mellitus with diabetic chronic kidney disease; F17.200 Nicotine dependence, unspecified, uncomplicated; Z88.8 Allergy status to other drugs, medicaments and biological substances; Z79.899 Other long term (current) drug therapy
CPT/HCPCS: 71045; 71260; 74018; 80053; 81001; 83690; 84484; 85025; 93005; 93010; 99285-25; J2270; J7030; Q9967

== ENCOUNTER 2021-01-11 14:43 | Emergency (ER) | payer OTHER ==
[~2021-01-11] VITALS: Ht 165.1 cm; Wt 83.9 kg
[~2021-01-11 14:43] MED LIST changes: +OXYCODONE HCL5 MG PO
--- OUTSIDE RECORDS SUMMARY | 2021-01-11 14:46 | XMS ---
PreManage Notification: NATIVIDAD FERMIN Security Controlled Area Checker Events No recent Security Events currently on file CRITERIA MET - [facility] - Has Care Guidelines - [facility] - 2 Visits in 30 Days - PDMP CARE PROVIDERS JUAN RAMON DENTON Internal Medicine 01/05/2019-Current PHONE: Unknown Care Guidelines exist for the following facilities: [facility] ( 01/02/2019 ) Care History Medical/Surgical 09/15/2019 [facility] Recommendations made to Dr. Denton via E[employer] works regarding respiratory medication changes. 09/15/2019 [facility] Patient has follow up with Dr. Denton today, 09/15/2019 09/08/2019 [facility] Patient has scheduled follow up with Dr. Denton on 09/15/2019 E.DFran VISIT COUNT (12 MO.) [address] [facility] TOTAL 6 NOTE: Visits indicate total known visits. ED/UCC VISIT TRACKING (12 MO.) 01/11/2021 14:44 [facility] [place] TYPE: Emergency COMPLAINT: - EXTREME PAIN LT HIP AND LEG 01/09/2021 10:32 [facility] [place] TYPE: Emergency COMPLAINT: - PAIN IN CHEST/BACK/L SIDE 11/22/2020 00:00 [facility] [place] TYPE: Emergency COMPLAINT: - DIFFICULTY BREATHING, COLD CHILLS 11/05/2020 19:18 [facility] [place] TYPE: Emergency COMPLAINT: - POST OP PROBLEM DIAGNOSES: - Allergy status to narcotic agent - Hemorrhage, not elsewhere classified - Postprocedural hematoma of skin and subcutaneous tissue following other procedure - Other oil heaterman (current) drug therapy - Emphysema, unspecified - Post-traumatic stress disorder, unspecified - Allergy status to other drugs, medicaments and biological substances - Type 2 diabetes mellitus without complications - senior care (current) use of systemic steroids - senior care (current) use of oral hypoglycemic drugs - Nicotine dependence, unspecified, uncomplicated 08/12/2020 10:05 [facility] [place] TYPE: Emergency COMPLAINT: - WEAKNESS,NAUSEA,COLD SWEATS DIAGNOSES: - Emphysema, unspecified - Allergy status to narcotic agent - senior care (current) use of systemic steroids - Nausea with vomiting, unspecified - Type 2 diabetes mellitus without complications - Diarrhea, unspecified - salvage determiner (current) use of oral hypoglycemic drugs - Other correction (current) drug therapy - Allergy status to other drugs, medicaments and biological substances - Nicotine dependence, unspecified, uncomplicated 02/12/2020 12:19 [facility] [place] TYPE: Emergency COMPLAINT: - BACK PAIN NON INJURY DIAGNOSES: - Allergy status to other drugs, medicaments and biological substances - Chronic obstructive pulmonary disease, unspecified - Nicotine dependence, unspecified, uncomplicated - senior care (current) use of oral hypoglycemic drugs - Sciatica, left side - Lumbago with sciatica, left side - Other oil heaterman (current) drug therapy - Allergy status to other drugs, medicaments and biological substances - Lumbago with sciatica, left side - Type 2 diabetes mellitus without complications INPATIENT VISIT TRACKING (12 MO.) 11/01/2020 05:48 [facility] DIAGNOSES: - Malignant neoplasm of lower lobe, left bronchus or lung - Malignant neoplasm of unspecified part of left bronchus or lung 11/01/2020 00:00 [facility] DIAGNOSES: - Malignant neoplasm of unspecified part of left bronchus or lung [email or web address]
[2021-01-11] MEDS ORDERED: OXYCODONE HCL5 MG PO (19:10)
--- NOTE | 2021-01-13 09:50 | EKG ---
[facility] [address] [place] [address] Signed Normal sinus rhythm Normal ECG When compared with ECG of 09-JAN-2021 10:35, No significant change was found Confirmed by KLARISSA CANTU MD ([id number]) on 01/13/2021 9:49:57 AM Electronically Signed By: KLARISSA CANTU MD 01/13/21 0950 PATIENT NAME: NATIVIDAD FERMIN Electrocardiogram DATE OF : 59 PHYSICIAN: KLARISSA CANTU MD REPORT #: [id number] REPORT IS CONFIDENTIAL AND NOT TO BE RELEASED WITHOUT AUTHORIZATION
== END 2021-01-11 19:16 | disposition home or self-care (01) ==
LOC: ED 14:43
DX: S76.012A Strain of muscle, fascia and tendon of left hip, initial encounter (principal); W18.30XA Fall on same level, unspecified, initial encounter; J43.9 Emphysema, unspecified; E11.9 Type 2 diabetes mellitus without complications; F17.200 Nicotine dependence, unspecified, uncomplicated; Z88.8 Allergy status to other drugs, medicaments and biological substances; Z79.899 Other long term (current) drug therapy; Z79.84 Long term (current) use of oral hypoglycemic drugs
CPT/HCPCS: 71045; 73502; 73590; 73700; 80053; 84484; 85025; 93005; 93010; 99284-25

== ENCOUNTER 2021-03-01 17:58 | Emergency (ER) | payer OTHER ==
[~2021-03-01] VITALS: Ht 165.1 cm; Wt 70.6 kg
--- NOTE | ~2021-03-01 | EKG ---
[facility] [address] [place], [place] [address] Draft EK completed, results pending confirmation PATIENT NAME: FERMINNATIVIDAD SR Electrocardiogram DATE OF : 59 PHYSICIAN: PRELIMINARY REPORT #: [id number] REPORT IS CONFIDENTIAL AND NOT TO BE RELEASED WITHOUT AUTHORIZATION
--- OUTSIDE RECORDS SUMMARY | 2021-03-01 18:00 | XMS ---
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 Renee and 01/20/[address] Cantu. 09/15/2019 [facility] Recommendations made to Dr. Denton via E[employer] works regarding respiratory medication changes. 09/15/2019 [facility] Patient has follow up with Dr. Denton today, 09/15/2019 EAndreia VISIT COUNT (12 MO.) 6 [facility] TOTAL 6 NOTE: Visits indicate total known visits. ED/UCC VISIT TRACKING (12 MO.) 03/01/2021 17:58 [facility] [place] [facility] COMPLAINT: - VOMITING 01/11/2021 14:44 [facility] [place] TYPE: Emergency COMPLAINT: - EXTREME PAIN LT HIP AND LEG DIAGNOSES: - group home (current) use of oral hypoglycemic drugs - Fall on same level, unspecified, initial encounter - Pain in left hip - Nicotine dependence, unspecified, uncomplicated - Emphysema, unspecified - Allergy status to other drugs, medicaments and biological substances - Type 2 diabetes mellitus without complications - Other intermediate (current) drug therapy - Strain of muscle, fascia and tendon of left hip, initial encounter 01/09/2021 10:32 [facility] [place] TYPE: Emergency COMPLAINT: - PAIN IN CHEST/BACK/L SIDE DIAGNOSES: - Type 2 diabetes mellitus with diabetic chronic kidney disease - Nicotine dependence, unspecified, uncomplicated - Allergy status to other drugs, medicaments and biological substances - Other chest pain - Other intermediate (current) drug therapy - Emphysema, unspecified 11/22/2020 00:00 [facility] [place] TYPE: Emergency COMPLAINT: - DIFFICULTY BREATHING, COLD CHILLS 11/05/2020 19:18 [facility] [place] TYPE: Emergency COMPLAINT: - POST OP PROBLEM DIAGNOSES: - Allergy status to narcotic agent - Hemorrhage, not elsewhere classified - Postprocedural hematoma of skin and subcutaneous tissue following other procedure - Other production engineer track (current) drug therapy - Emphysema, unspecified - Post-traumatic stress disorder, unspecified - Allergy status to other drugs, medicaments and biological substances - Type 2 diabetes mellitus without complications - group home (current) use of systemic steroids - group home (current) use of oral hypoglycemic drugs - Nicotine dependence, unspecified, uncomplicated 08/12/2020 10:05 [facility] [place] TYPE: Emergency COMPLAINT: - WEAKNESS,NAUSEA,COLD SWEATS DIAGNOSES: - Emphysema, unspecified - Allergy status to narcotic agent - make up arranger (current) use of systemic steroids - Nausea with vomiting, unspecified - Type 2 diabetes mellitus without complications - Diarrhea, unspecified - make up arranger (current) use of oral hypoglycemic drugs - Other production engineer track (current) drug therapy - Allergy status to other drugs, medicaments and biological substances - Nicotine dependence, unspecified, uncomplicated INPATIENT VISIT TRACKING (12 MO.) 11/01/2020 05:48 [facility] Mae BARCLAY TYPE: Cardiac Surgery DIAGNOSES: - Malignant neoplasm of lower lobe, left bronchus or lung - Malignant neoplasm of unspecified part of left bronchus or lung 11/01/2020 00:00 [facility] Mae [facility]CL[facility] TYPE: Inpatient DIAGNOSES: - Malignant neoplasm of unspecified part of left bronchus or lung [email or web address]
[2021-03-01] MEDS ORDERED: PROMETHAZINE HC25 M1 PO (21:15)
== END 2021-03-01 21:50 | disposition home or self-care (01) ==
LOC: ED 17:58
DX: K52.9 Noninfective gastroenteritis and colitis, unspecified (principal); Z20.822 Contact with and (suspected) exposure to COVID-19; J43.9 Emphysema, unspecified; E11.9 Type 2 diabetes mellitus without complications; J45.909 Unspecified asthma, uncomplicated; F43.10 Post-traumatic stress disorder, unspecified; F17.200 Nicotine dependence, unspecified, uncomplicated; Z88.8 Allergy status to other drugs, medicaments and biological substances; Z79.899 Other long term (current) drug therapy
CPT/HCPCS: 70450; 71045; 80053; 81001; 83605; 85025; 87040; 96374; 99285-25; C9803; J2405; J7030; U0003

== ENCOUNTER 2023-03-08 14:43 | Inpatient (IN) | payer MEDICARE ==
[~2023-03-08] VITALS: Ht 165.1 cm; Wt 68.0 kg
[2023-03-08] VITALS (9 sets, daily range): BP systolic 129–180; BP diastolic 74–90
[~2023-03-08 14:43] MED LIST changes: +PROMETHAZINE HC25 M1 PO
[2023-03-08 15:06] LABS: BASOPHILS 0.7 % (0-2); EOSINOPHILS 0.2 % (0-6); HEMATOCRIT 53.6 % (35.0-50.0); HEMOGLOBIN 17.4 g/dL (12.0-18.0); LYMPHOCYTES 16.3 % (24-44); MCH 28.9 (27-36); MCHC 32.5 g/dl (30-36); MONOCYTES 10.7 % (0-12); NEUTROPHILS 72.1 % (39-80); PLATELET COUNT 250 K/uL (140-440); RBC 6.03 M/ul (4.3-5.7)
[2023-03-08 15:20] LABS: ALBUMIN 3.1 g/dL (3.4-5.0); ALBUMIN/GLOBULIN RATIO 0.65 (1.1-2.4); ANION GAP 22.6 (7-21); BILIRUBIN, TOTAL 0.7 ng/dL (0.2-1.0); BUN/CREATININE RATIO 11.8 (6.0-28.6); CALCIUM 9.4 mg/dL (8.5-10.1); CREATININE, SERUM 1.44 mg/dL (0.70-1.30); POTASSIUM 4.6 mmol/L (3.5-5.1); PROTEIN, TOTAL 7.9 g/dL (6.4-8.2)
[2023-03-08] MEDS ORDERED: NEURONTIN300 MG PO (15:21)
[2023-03-08] MEDS ORDERED: NEURONTIN100 MG PO (15:22)
[2023-03-08] MEDS ORDERED: BUPRENORPHINE HC2 MG SL (15:23)
[2023-03-08] MEDS ORDERED: PANTOPRAZOLE SO40 MG PO (15:24)
[2023-03-08] MEDS ORDERED: VENLAFAXINE HCL75 MG PO (15:25)
[2023-03-08] MEDS ORDERED: TAMSULOSIN HCL0.4 MG PO (15:25)
[2023-03-08] MEDS ORDERED: VITAMIN D21250 MCG PO (15:26)
[2023-03-08 16:29] LABS: BILIRUBIN, URINE POSITIVE (negative); BLOOD/HGB, URINE TRACE-I (Negative); KETONE, URINE >=80 (Negative); LEUK ESTERASE, URINE NEGATIVE (negative); NITRITE, URINE NEGATIVE (negative); PH, URINE 5.5 (5-7)
[2023-03-08 16:38] LABS: BACTERIA, URINE NONE SEEN /hpf (negative); CASTS, URINE NONE SEEN \\lpf; COLLECTION TYPE, URINE CLEAN CATCH; CRYSTALS, URINE NONE SEEN (0-1+); EPITHELIAL CELLS, URINE NONE SEEN /lpf (0-1+); REFLEX CULTURE, URINE No (No); WHITE BLOOD CELLS, URINE 0-1 /HPF (0-5)
[2023-03-08 16:45] LABS: AMPHETAMINES, URINE NEGATIVE (NEGATIVE); BARBITURATES, URINE NEGATIVE (NEGATIVE); BENZODIAZEPINE, URINE NEGATIVE (NEGATIVE); BUPRENORPHINE, URINE POSITIVE (NEGATIVE); CANNABINOID, URINE POSITIVE (NEGATIVE); COCAINE, URINE NEGATIVE (NEGATIVE); ECSTASY, URINE NEGATIVE (NEGATIVE); FENTANYL, URINE NEGATIVE (NEGATIVE); METHADONE, URINE NEGATIVE (NEGATIVE); OPIATES, URINE NEGATIVE (NEGATIVE); OXYCODONE, URINE NEGATIVE (NEGATIVE); PHENCYCLIDINE, URINE NEGATIVE (NEGATIVE)
--- NOTE | 2023-03-08 18:10 | NUR ---
PATIENT ARRIVED PER E.D. R.N., PATIENT ALERT TO NAME ONLY, UNABLE TO FOLLOW DIRECTIONS OR ANSWER OTHER ORIENTATION QUESTIONS. HE BECAME AGITATED AND AXIOUS WITH TRANSFER FROM [facility] TO HOSPITAL BED. HE THEN SETTLED AND RELAXED WITH LESS STIMULI.
[2023-03-08] MEDS ORDERED: DISULFIRAM250 MG PO (18:18)
[2023-03-08] MEDS ORDERED: LIDOCAINE35.44 GM TOP (18:21)
[2023-03-08] MEDS ORDERED: OXYBUTYNIN CHLO15 MG PO (18:22)
[2023-03-08] MEDS ORDERED: OMEPRAZOLE40 MG PO (18:23)
[2023-03-08] MEDS ORDERED: HYDROXYZINE PAM25 MG PO (18:24)
[2023-03-08] MEDS ORDERED: METOPROLOL TART25 MG PO (18:25)
--- NOTE | 2023-03-08 19:29 | NUR ---
PATIENT RESTING IN BED, EYES CLOSED RESPIRATIONS REGULAR 20/MIN. SNORING NOTED, 93% OXYGEN SATURATION ON ROOM AIR. NO NEW CONCERNS AT THIS TIME.
--- NOTE | 2023-03-08 20:06 | NUR ---
THIS RN ROUNDING, PATIENT ALERT TO NAME, ABLE TO ANSWER HIS NAME, WHEN ASKED, "DO YOU KNOW WHERE YOU ARE?" PATIENT LOOKED AROUND AND SAID "I THINK SO" NODDED HIS HEAD YES, HE WAS NOT ABLE TO VERBALIZE PLACE OR TIME.
--- NOTE | 2023-03-08 21:34 | NUR ---
UPDATE GIVEN TO DUE TO PRIMARY RN NOT BEING CURRENTLY AVAILABLE. DISCUSSED PATIENT'S NEURO STATUS AND ELEVATED BP. MD TO PLACE ORDERS.
--- NOTE | 2023-03-08 21:35 | NUR ---
PATIENT BLADDER SCANNED FOR 300ML AT THIS TIME. WITH FLOAT RN DAVID AT BEDSIDE TO ASSIST. PATIENT AFTER RE-DIRECTING SEVERAL TIMES PATIENT FINALLY COOPERATED. THIS RN LEFT ROOM TO CLEANAND PUT AWAY BLADDER SCANNER, PATIENT ATTEMPTED TO GET OUT OF BED, HE BEGAN PULLING ALL HIS CLOTHS OFF AND PUSHED TO EDGE OF BED DESPITE STAFF TRYING TO RE-DIRECT, PATIENT REFUSED TO GET BACK IN BED, URINAL PROVIDED, PATIENT VOIDED 200ML AND ALSO URINATED IN BED SOME, NOTED SMALL AMOUNT OF EMY BLOOD PATIENT FINISHED VOIDING. TWO STAFF HAD TO HOLD PATIENT IN BED TO PREVENT HIM FROM JUMPING OUT OF BED. PATIENT FINISHED VOIDING AND AGREED TO START TO GET BACK INTO BED, PATIENT ADMINISTERED 1MG IV ATIVAN FOR AGITATION. HE DID NOT ATTEMPT TO HIT ANY STAFF, HE DID PUSH AGAINST STAFF.
--- NOTE | 2023-03-08 21:48 | NUR ---
PT AGGITATED, YELLING, NOT FOLLOWING DIRECTIONS, TRYING TO GET OUT OF BED. PRN ATIVAN PROVIDED. NO OTHER NEEDS AT THIS TIME. RAILS UP, BED LOW, BED ALARM ON, DOOR AND CURTAIN OPEN.
--- NOTE | 2023-03-08 22:00 | NUR ---
PATIENT NOW RESTING BACK IN BED, RELAXED POSITION. NO FURTHER DISTRESS NOTED AT THIS TIME.
--- NOTE | 2023-03-08 22:20 | NUR ---
UPDATED PATIENT BEDSIDE BLOOD SUGAR CHECK AT 1830 WAS 82, NOW IS 87, ALSO DISCUSSED PATIENT BEHAVIOR/AGITATION WITH VOIDING AND NOTED SMALL AMOUNT OF EMY RED BLOOD AT COMPLETION OF URINE STREAM. CLINICAL OPIATE WITHDRAWL ASSESSMENT "5" (MILD WITHDRAWL). PATIENT WAS ADMINISTERED 1MG IV ATIVAN, AFTER REQUIRING [facility]ERS TO PREVENT PATIENT FROM EXITING BED WITH FORCE.
[2023-03-09] VITALS (16 sets, daily range): BP systolic 141–177; BP diastolic 77–106
--- NOTE | 2023-03-09 | NUR ---
PATIENT PULLED OFF OXUMETRY SENSOR, THIS RN INTO PLACE BACK ON FINGER, PATIENT ALERT TO RN SAYING HIS NAME, SENSOR PLACED, RN SAID, "THANK YOU" PATIENT MAKING GROWLING NOISES, ALSO NOTED TO BE MORE RESTLESS THIS PAST HOUR, MOVING LEGS AROUND IN BED AND REPOSITIONING, BED ALARM ON FOR PATIENT SAFETY, PATIENT ALSO IN DIRECT VIEW OF NURSES STATION. CALL LIGHT IN REACH. PATIENT SHOCK HIS HEAD "NO" WHEN ASKED IF HE NEEDS ANYTHING AT THIS TIME.
--- NOTE | 2023-03-09 00:53 | NUR ---
REPORT RECEIVED AND CARE ASSUMED FROM KARSTEN LAUREANO. PT VSS VIA CONTINUOUS MONITOR.
--- NOTE | 2023-03-09 01:05 | NUR ---
PT ROLLING AROUND IN BED MOANING. PT DENIES PAIN AND/OR NEEDS. PT DISORIENTED TO DATE, PLACE AND SITUATION. BED ALARM ON, BED IN LOW, LOCKED POSITION, CALL LIGHT IN REACH. NAD AND VSS PER DIRECT OBS AND CONTINUOUS MONITOR.
--- NOTE | 2023-03-09 01:58 | NUR ---
PT RESTLESS, PT ROLLING OVER AND DISLODGING LINES AND MONITOR EQUIPMENT. PT RESETTLED, WARM BLANKETS PROVIDED. DR ANDERSON NOTIFIED FOR PT RESTLESSNESS. ORDERS RECEIVED, READ BACK AND ENTERED INTO [facility]. PT VSS AND NAD NOTED VIA CONTINUOUS MONITOR AND DIRECT OBS.
--- NOTE | 2023-03-09 02:32 | NUR ---
PT CONTINUES TO MOAN. WHEN ASKED WHAT IS WRONG PT UNABLE TO ANSWER. PT NOT FOLLOWING DIRECTIONS. PT IMPULSIVE. TRIES TO CLIMB OUT OF BED WHEN PT NEEDS TO URINATE. PT REQUIRING MULTIPLE STAFF MEMBERS TO ASSIST. WHEN PT NAME IS CALLED HE REPLIES WITH "WHAT?" BUT CANNOT ANSWER ANY FURTHER QUESTIONS. PRN HYDRALAZINE ADMINISTERED FOR SBP >160 PER EMAR. PT URINE BLOODY. PT REPOSITIONED IN BED, HYGEINE, BEVERLY-CARE AND GOWN CHANGE COMPLETE. BED ALARM ON, BED IN LOW, LOCKED POSITION. VSS AND NAD NOTED VIA CONTINUOUS MONITOR.
--- NOTE | 2023-03-09 04:12 | NUR ---
PT MOANING. WHEN ASKED IF PT WAS IN PAIN, PT ANSWERED "YES". PT PROVIDED TYLENOL PER EMAR. PT ABLE TO DRINK WATER AND SWALLOW PILLS WITHOUT INCIDENT. PT ABLE TO STATE BOTH FIRST AND LAST NAME. PREVIOUS ASSESSMENT PT ONLY ABLE TO STATE FIRST NAME. WHEN ASKED TO STAY IN BED OR CALL FOR HELP PT STATES "YES MA'AM". PT REMAINS ALERT TO SELF ONLY. PT CONTINUES TO MOAN AND RESTLESSLY ROLL IN BED. BED IN LOW, LOCKED POSITION WITH BED ALARM ON. PT MAINTENANCE FLUIDS INFUSING PER EMAR THROUGH PATENT PIV. PT VSS AND NAD NOTED VIA DIRECT OBS AND CONTINUOUS MONITOR. SHIFT ASSESSMENT COMPLETE. [email or web address] FOR [facility].
[2023-03-09 05:27] LABS: BASOPHILS 0.4 % (0-2); EOSINOPHILS 0.5 % (0-6); HEMATOCRIT 46.8 % (35.0-50.0); HEMOGLOBIN 15.5 g/dL (12.0-18.0); LYMPHOCYTES 16.7 % (24-44); MCH 28.9 (27-36); MCHC 33.1 g/dl (30-36); MCV 87.4 fl (81-99); MONOCYTES 11.2 % (0-12); NEUTROPHILS 71.2 % (39-80); PLATELET COUNT 198 K/uL (140-440); RBC 5.36 M/ul (4.3-5.7); RDW 15.3 (10.5-15.0)
[2023-03-09 05:43] LABS: ALBUMIN 2.5 g/dL (3.4-5.0); ALBUMIN/GLOBULIN RATIO 0.64 (1.1-2.4); ANION GAP 15.9 (7-21); BILIRUBIN, TOTAL 0.5 ng/dL (0.2-1.0); BUN/CREATININE RATIO 9.73 (6.0-28.6); CALCIUM 8.7 mg/dL (8.5-10.1); CREATININE, SERUM 1.13 mg/dL (0.70-1.30); MAGNESIUM 1.4 mg/dL (1.8-2.4); PHOSPHORUS, INORGANIC 1.9 mg/dL (2.5-4.9); POTASSIUM 3.9 mmol/L (3.5-5.1); PROTEIN, TOTAL 6.4 g/dL (6.4-8.2)
--- NOTE | 2023-03-09 06:05 | NUR ---
DR ANDERSON IN UNIT, NOTIFIED OF PT LAB RESULTS. ORDERS RECEIVED, READ BACK AND ENTERED INTO [email or web address]. PT RESTING IN BED WITH EYES CLOSED. MOANING INTERMITTENTLY. NAD NOTED AN VSS VIA CONTINUOUS MONITOR AND DIRECT OBS.
--- NOTE | 2023-03-09 06:43 | NUR ---
DR ANDERSON INFORMED OF PT MOANING AND GROANING THROUGHOUT SHIFT. PT DOESN'T ANSWER QUESTIONS WHEN ASKED IF IN PAIN. WHEN ASKED WHAT IS WRONG PT STATES "I DON'T KNOW". MD TO EVALUATE PT AND NEED FOR PAIN CONTROL OPTIONS.
--- NOTE | 2023-03-09 07:08 | NUR ---
DR ANDERSON IN PT ROOM ASSESSING PT. PT IMPULSIVE ATTEMPTED TO GET OUT OF BED TO URINATE. PT BEGINS URINATING SOON HE STATES HE NEEDS TO GO. NO BLOOD IN URINE THIS EPISODE. PT CLEANED UP, GOWN REPLACED, REPOSITIONED AND BED ALARM ON. PT GRUNTS/MOANS LOUDLY WHEN ASKED WHY PT STATES "I DON'T KNOW" AND CONTINUES TO GROAN/MOAN LOUDLY. NAD NOTED VIA CONTINUOUS MONITOR.
--- NOTE | 2023-03-09 07:30 | NUR ---
REPORT RECEIVED FROM CHICKEN AND FISH BUTCHER. PATIENT IS CALM IN BED AT THIS TIME. IVF INFUSING. BED ALARM ON.
--- NOTE | 2023-03-09 07:36 | NUR ---
REPORT GIVEN AND CARE ENDORSED TO KARSTEN ALVAREZ. PT RESTING IN BED, BED ALARM ON, VSS PER MONITOR.
--- NOTE | 2023-03-09 08:00 | NUR ---
ASSESSMENT DONE. PATIENT IS NOT ABLE TO ANSWERE QUESTIONS, WILL FOLLOW SOME COMMANDS. MOVING AROUND IN BED. BED ALARM ON.
--- NOTE | 2023-03-09 08:15 | NUR ---
BREAKFAST HELD AT THIS TIME, PATIENT IS HIGH ASPIRATION RISK. ACCUCHECK 132 NO INSULIN GIVEN.
--- NOTE | 2023-03-09 09:30 | NUR ---
AMMONIA LEVEL DRAWN. BED LINENS CHANGED. REPOSITIONED IN BED.
--- NOTE | 2023-03-09 09:56 | NUR ---
LAYING ON RIGHT SIDE. MOANING INTERMITTENTLY. WILL FOLLOW FEW COMMANDS. IS NOT ABLE TO TELL ME HIS NAME, BIRTHDAY. HAS BEE TOLD MANY TIMES IN IS IN THE HOSPITAL. REMAINS UNAWARE OF PLACE. WILL SAY WORDS OCCASIONALLY. BED ALARM ON. ORAL CARE GIVEN. HOB ELEVATED TO 30 DEGRESS. IVF AT 125 CC/HR AND KPHOS INFUSING.
--- NOTE | 2023-03-09 10:10 | NUR ---
SAT AT BESIDE TO VOID 375 ML CLEAR MEGHANN URINE. THEN BACK TO BED.
[2023-03-09] MEDS ORDERED: CELEBREX200 MG PO (10:54)
--- NOTE | 2023-03-09 10:56 | NUR ---
MED REC COMPLETED
--- NOTE | 2023-03-09 12:00 | NUR ---
ACCUCHECK-144. 1 UNIT INSULIN GIVEN. ASSESSMENT DONE. MORE ALERT AT THIS TIME.
--- NOTE | 2023-03-09 12:19 | NUR ---
ATTEMPTED TO FEED PATIENT. IS MORE ALERT, SITTING AT 90 DEGREE ANGLE. TOOK WATER AND ENSURE W/O PROBLEMS. HAD SMALL BITE OF RICE, SWALLOWED THAT FINE, THEN GAVE PATIENT A BIGGER BITE, THEN BEGAN COUGHING, VOMITED THE ENSURE. HAD SHORT RUN OF A-FIB WITH RVR. DR. ANDERSON AWARE, ORDERS RECEIVED TO GIVE LORPRESSOR 5 MG IV, THIS DONE.
--- NOTE | 2023-03-09 12:40 | NUR ---
FAMILY MEMBERS ARE IN ROOM. PATIENT IS AWARE OF FAMILY MEMBERS. IS ABLE TO TELL US THE NAMES OF MOST OF FAMILY MEMBERS. PATIENT WAS ABLE TO TELL ME HIS NAME BUT NOT .
--- NOTE | 2023-03-09 12:55 | NUR ---
ZOFRAN 4 MG IV GIVEN FOR NAUSEA.
--- NOTE | 2023-03-09 15:00 | NUR ---
SLEEPING ON RIGHT SIDE. NO CHANGES.
--- NOTE | 2023-03-09 17:30 | NUR ---
FED PATIENT 20% OF DINNER. TOOK JELLO, APPLESAUSE AND SOME ENSURE. ABD TENDER WITH PALPATION. C/O SLIGHT NAUSEA. DR. ANDERSON HERE TO SEE PATIENT AND TALK WITH PATIENT . KUB TO BE DONE.
--- NOTE | 2023-03-09 19:30 | NUR ---
REPORT TO NEXT SHIFT. IVF PATENT.
--- NOTE | 2023-03-09 19:45 | NUR ---
REPORT RECIEVED FROM DAY SHIFT RN. PATIENT RESTING IN BED WITH BED ALARM ON FOR PATIENTS SAFETY. PER REPORT PATIENT HAS BEEN RESTLESS WITH INCREASED IMPULSIVENESS WHEN HE NEEDS TO URINATE. PATIENT HAS CALL LIGHT IN REACH. CONTINUE TO REDIRECT/ORIENT WHEN NEEDED.
--- NOTE | 2023-03-09 20:00 | NUR ---
PATIENT MOANING WHILE RESTING IN BED. PATIENT DENIES NEEDING TO USE THE BATHROOM AT THIS TIME. ASSESSMENT COMPLETED. PATIENT IS ALERT TO NAME, BIRTHDATE, AND THAT HE IS IN THE HOSPITAL. PATIENT DOES NOT KNOW DATE OR SITUATION. PATIENT MOANING AND SAYING "OWCH", THIS RN ASKED PATIENT WHERE HIS PAIN WAS AND HE POINTED TO HIS LOWER ABD/PELVIC REGION. BOWEL TONES HYPOACTIVE. EDUCATED PATIENT HE WILL BE GETTING MEDICATIONS FOR CONSTIPATION. PATIENTS ABD PALPATED AND IS TENDER IN THE LEFT LOWER ABD AND BLADDER REGION. PATIENTS IV LEAKING AND PAINFUL IN LEFT HAND. IV DCD AND COBAN PLACED AT SITE. PATIENT DENIES ANY OTHER NEEDS AT THIS TIME. PATIENT RESTING ON HIS SIDE WITH BED ALARM ON AND WARM BLANKETS PLACED. CALL LIGHT IN REACH. BED ALARM ON.
--- NOTE | 2023-03-09 21:15 | NUR ---
PATIENT WOKE ON MOANING. THIS RN IN TO ASSIST PATIENT. PATIENT IMMEDIATELY GOT OUT OF BED AND STATED "IM PEEING ALL OVER". PATIENT SAT ON THE EDGE OF THE BED AND STARTD URINATING ON THE FLOOR WHILE I GRABBED THE URINAL. URINAL PROVIDED. PATIENT FINISHED AND WAS ABLE TO STAND AND MOVE UP TO THE HEAD OF THE BED WITH DIRECTION. PATIENT LAID DOWN IN BED AND RELAXING AND STARTED VOMITING OVER THE BED. PATIENT CLEANED UP, LINEN CHANGED, AND ZOFRAN PROVIDED. PATIENT NOW RESTING WITH A WARM BLANKET. BED ALARM ON FOR PATIENTS SAFETY. CALL LIGHT IN REACH.
--- NOTE | 2023-03-09 22:42 | NUR ---
SCHEDULED MED PROVIDED. PT STATING "I'M SO SICK." AND GROANING. VISTARIL PROVIDED. DRINK PROVIDED. PT ORIENTED TO PERSON AND PLACE. CALL LIGHT IN REACH, BED ALARM ON, RAILS UP, DOOR AND CURTAIN OPEN.
--- NOTE | 2023-03-09 23:30 | NUR ---
PATIENT WOKE AND WAS MOANING. THIS RN IN TO SEE IF PATIENT NEEDED ANY ASSITANCE. PATIENT STATED "I THINK I NEED TO PEE, CAN I SIT UP ON THE EDGE OF THE BED AND TRY". PATIENT WAS ABLE TO HOLD THE URINAL ON HIS OWN AND URINATE. NO URINE WAS NOTED ON THE FLOOR. PATIENT ABLE TO STAND AND MOVE UP IN BED AND LAY BACK DOWN. NEW WARM BLANKET PROVIDED. VITALS DONE. PATIENT DENIES ANY OTHER NEEDS AT THIS TIME. ASSESSMENT COMPELTED. CALL LIGHT IN REACH AND BED ALARM ON.
[2023-03-10] VITALS (7 sets, daily range): BP systolic 121–163; BP diastolic 74–100
--- NOTE | 2023-03-10 01:00 | NUR ---
REPORT RECEIVED FROM LIZZETTE SHELLEY. PT RESTING IN BED, EYES CLOSED. RR EVEN, UNLABORED. RAILS UP, BED ALARM ON, DOOR AND CURTAIN OPEN. CALL LIGHT IN REACH.
--- NOTE | 2023-03-10 01:30 | NUR ---
PT STATES HE HAS NAUSEA, PRN NAUSEA MED PROVIDED. ASSESSMENT COMPLETED. ABD SOFT, NONTENDER, BOWEL TONES ACTIVE. PT STATES HE DOES NOT KNOW WHEN HE HAD A BM LAST. PT ORIENTED TO PERSON AND PLACE. FOLLOWS COMMANDS. PT STATES NO OTHER NEEDS AT THIS TIME. CALL LIGHT IN REACH, RAILS UP, BED ALARM ON, DOOR AND CURTAIN OPEN.
--- NOTE | 2023-03-10 02:00 | NUR ---
VS COMPLETED. PT RESTING IN BED ON LEFT SIDE, EYES CLOSED. RR EVEN, UNLABORED. CALL LIGHT IN REACH, RAILS UP, BED ALARM ON.
--- NOTE | 2023-03-10 02:36 | NUR ---
PT UP TO STAND AT BEDSIDE AND USE URINAL. HR INCREASES TO 150 DURING ACTIVITY BUT DECREASES BACK IN TO 80s SHORTLY AFTER ACTIVITY. PT DENIES CHEST PAIN/PALPITATIONS OR SHOB WITH ACTIVITY. PT BACK TO BED AND RESTING ON LEFT SIDE. SR @ 85. CALL LIGHT IN REACH, BED ALARM ON, RAILS UP.
--- NOTE | 2023-03-10 04:05 | NUR ---
PT RESTING IN BED, EYES CLOSED. RR EVEN, UNLABORED. BED ALARM ON, CALL LIGHT IN REACH.
--- NOTE | 2023-03-10 04:37 | NUR ---
ASSESSMENT COMPLETED. IVs WNL, IV FLUID INFUSING PER ORDER. LUNGS CLEAR. ABD SOFT, TENDER, BOWEL TONES HYPOACTIVE. PT STATES THE NAUSEA HAS RESOLVED. PT DROWSY AT TIMES BUT RESTLESS IN HIS SLUMBER, FREQUENTLY MOVING IN BED. PT DECLINES ORAL FLUIDS. PT STATES NO OTHER NEEDS AT THIS TIME. RAILS UP, BED ALARM ON, CALL LIGHT IN REACH.
--- NOTE | 2023-03-10 05:00 | NUR ---
LAB IN ROOM FOR BLOOD DRAW, COMPLETED. PT UP TO USE URINAL. PT INSISTS ON STANDING AND NOT SITTING AT THE EDGE OF THE BED. HR BECOMES TACHYCARDIC IN THE 150s WITH ACTIVITY AGAIN. PT DENIES SHOB, PALPITATIONS OR CHEST PAIN. PT BACK IN BED AND HR RESUMES SR IN THE 80s AND 90s. VS COMPLETED. PT STATES NO OTHER NEEDS AT THIS TIME. WARM BLANKET PROVIDED. CALL LIGHT IN REACH, RAILS UP, BED ALARM ON.
[2023-03-10 05:32] LABS: BASOPHILS 0.7 % (0-2); EOSINOPHILS 0.4 % (0-6); HEMATOCRIT 46.8 % (35.0-50.0); HEMOGLOBIN 15.5 g/dL (12.0-18.0); MCH 28.9 (27-36); MCHC 33.2 g/dl (30-36); MCV 87.2 fl (81-99); MONOCYTES 11.7 % (0-12); NEUTROPHILS 62.2 % (39-80); PLATELET COUNT 191 K/uL (140-440); RBC 5.37 M/ul (4.3-5.7); RDW 14.8 (10.5-15.0)
[2023-03-10 05:40] LABS: ALBUMIN 2.6 g/dL (3.4-5.0); ALBUMIN/GLOBULIN RATIO 0.67 (1.1-2.4); ANION GAP 16.1 (7-21); BILIRUBIN, TOTAL 0.6 ng/dL (0.2-1.0); BUN/CREATININE RATIO 8.65 (6.0-28.6); CALCIUM 8.6 mg/dL (8.5-10.1); CREATININE, SERUM 1.04 mg/dL (0.70-1.30); MAGNESIUM 1.6 mg/dL (1.8-2.4); PHOSPHORUS, INORGANIC 2.9 mg/dL (2.5-4.9); POTASSIUM 4.1 mmol/L (3.5-5.1); PROTEIN, TOTAL 6.5 g/dL (6.4-8.2)
--- NOTE | 2023-03-10 06:10 | NUR ---
CALLED MD CONCERNING MORNING MAGNESIUM LAB RESULTS AND EPISODES OF TACHYCARDIA. TELEPHONE ORDERS RECEIVED FOR 2MG MAGNESIUM IV NOW AND TO PROVIDED ORDERED LOPRESSOR. ORDERS REPEATED BACK.
--- NOTE | 2023-03-10 06:38 | NUR ---
SCHEDULED MAGNESIUM PROVIDED. PRN LOPRESSOR PROVIDED. VS COMPLETED. PT RESTING IN BED, EYES CLOSED. RR EVEN, UNLABORED. CALL LIGHT IN REACH, BED ALARM ON, RAILS UP.
--- NOTE | 2023-03-10 07:30 | NUR ---
REPORT RECEIVED. PATIENT IS AWAKE, RESING IN BED.
--- NOTE | 2023-03-10 08:00 | NUR ---
ASSESSMENT DONE. ACCUCHECK 148, 1 UNIT OF INSULIN GIVEN. OOB TO CHAIR, IS FAIRLY STEADY ON FEET. FOLLOWING DIRECTION. DENIES SHORTNESS OF BREATH WITH EXERTION. VERY POOR MEMORY.
--- NOTE | 2023-03-10 08:30 | NUR ---
TOOK BREAKFAST FAIR. DENIES NAUSEA. NO PROBLEMS WITH SWALLOWING NOTED WITH TAKING BREAKFAST. CONTINUES TO SIT IN CHAIR. COOPERATIVE.
--- NOTE | 2023-03-10 09:00 | NUR ---
AMBULATED TO BR FROM CHAIR. IS STABLE ON FEET. VOIDED AND HAD LARGE BM. TEHN TO BED W/O INCIDENT.
--- NOTE | 2023-03-10 09:20 | NUR ---
C/O STOMACH PAIN WITH NAUSEA. ZOFRAN, VISTARIL AND TYLENOL GIVEN. TOOK PILLS W/O PROBLEMS.
--- NOTE | 2023-03-10 09:54 | NUR ---
SLEEPING. RESP EVEN AND NON-LABORED. IVF INFUSING TO LAC IV SITE.
--- NOTE | 2023-03-10 11:07 | NUR ---
PT SON HERE. PT DOES RECOGNIZE HIS SON. PATIENT VERY EMOTIONAL AND IS CRYING.
--- NOTE | 2023-03-10 11:09 | NUR ---
NOW IS OOB LAYING ON COUCH. REMAINS EMOTIOMAL.
--- NOTE | 2023-03-10 11:50 | NUR ---
CONATINUES TO CRY. IS ANXIOUS. ATIVAN 1 MG IV GIVEN. STATES I DON'T KNOW WHAT HAPPENED. BACK TO BED WITHOUT INCIDENT.
--- NOTE | 2023-03-10 12:15 | NUR ---
LESS EMOTIONAL AFTER ATIVAN GIVEN. SITTING AT BEDSIDE TO ATTEMPT TO TAKE LUNCH.
--- NOTE | 2023-03-10 14:00 | NUR ---
SITTING UP IN CHAIR. HAS BEEN VERY RESTLESS THIS AFTERNOON. FAMILY IN ROOM. PATIENT NOW TALKING ABOUT GOING HOME. PATIENT SAID THE PATIENT HAS GOME AMA IN THE PAST. PATIENT C/O INTERMITTENT ABD DISCOMFORT.
--- NOTE | 2023-03-10 14:35 | NUR ---
52 YEAR OLD MALE PATIENT ADMITTED TO ROOM 126 FROM ER VIA W/C WITH DX OF GIB. UPON ADMIT PATIENT IS AWAKE, ALERT AND ORIENTED. COOPERATIVE. DENIES ABD ON ADMIT, BUT SAID HE HAD ABD PAIN FOR THE LAST DAY, DUE TO A COUGH HE DEVELOPED YESTERDAY. COVID NEG. DENIES SHORTNESS OF BREATH. IV SITE TO R HAND IS PATENT. HX OF HTN.
--- NOTE | 2023-03-10 15:45 | NUR ---
BOWEL PREP STARTED. FAMILY IN ROOM. HAS MILD HEADACHE. MILD ABD DISCOMFORT.
--- NOTE | 2023-03-10 16:00 | NUR ---
ASSESSMENT DONE. HAS BEEN AMBULATING IN UNIT, TALKING ABOUT GOING HOME. DIFFICULT TO CONTAIN PATIENT. OFF MONITOR,
--- NOTE | 2023-03-10 16:30 | NUR ---
AMBULATING IN [place]. PATIENT STATES HE IS GOING HOME. ENCOURAGED PATIEMT TO STAY IN HOSPITAL. PATIENT INSISTING ON LEAVING. DR. ANDERSON NOTIFIED.
--- NOTE | 2023-03-10 16:35 | NUR ---
DR. ANDERSON HERE TO TALK WITH PATIENT, AND HE CALLED PATIENT TO TALK TO HER ABOUT THIS SITUATION.
--- NOTE | 2023-03-10 16:40 | NUR ---
HAS HAD 4 BLOODY STOOLS SINCE ADMIOT TO CCU. HR TO 137 WHEN UP TO BR. IS DIZZY WITH ABMULATION. IS SOMEWHAT SHAKEY.
--- NOTE | 2023-03-10 17:05 | NUR ---
SITTING UP IN CHAIR EATING DINNER. REMAINS VERY RESTLESS.
--- NOTE | 2023-03-10 17:40 | NUR ---
DISCHARGE ORDERS RECIEVED.
--- NOTE | 2023-03-10 18:10 | NUR ---
DISCHARGED TO HOME VIA W/C ACCOMP BY FAMILY MEMBERS AND NURSING STAFF.
== END 2023-03-10 18:10 | disposition home or self-care (01) | DRG 897 ==
LOC: ED 14:43 → CCU 14:45
PROVIDERS: Emergency Medicine; ADMIT Family Medicine; ATTEND Family Medicine
DX: F11.23 Opioid dependence with withdrawal (principal); G93.49 Other encephalopathy; E83.42 Hypomagnesemia; K59.00 Constipation, unspecified; E83.39 Other disorders of phosphorus metabolism; Z66 Do not resuscitate; E11.9 Type 2 diabetes mellitus without complications; F10.10 Alcohol abuse, uncomplicated; J44.9 Chronic obstructive pulmonary disease, unspecified; F32.A Depression, unspecified; F43.10 Post-traumatic stress disorder, unspecified; F41.9 Anxiety disorder, unspecified; F17.210 Nicotine dependence, cigarettes, uncomplicated; Z98.890 Other specified postprocedural states; Z85.118 Personal history of other malignant neoplasm of bronchus and lung; Z86.19 Personal history of other infectious and parasitic diseases; Z85.72 Personal history of non-Hodgkin lymphomas; Z88.8 Allergy status to other drugs, medicaments and biological substances; Z79.899 Other long term (current) drug therapy; Z79.51 Long term (current) use of inhaled steroids; Z79.84 Long term (current) use of oral hypoglycemic drugs
CPT/HCPCS: 36415; 70450; 71045; 74018; 80053; 80307; 81001; 82140; 82607; 83735; 84100; 84425; 84443; 85025; 97116; 97162; A9270; J0360; J0780; J1650; J1815; J2060; J2405; J3411; J3475; J7030; J7060; J7121; Q0177

== ENCOUNTER 2023-04-04 22:25 | Emergency (ER) | payer MEDICARE ==
[~2023-04-04] VITALS: Ht 165.1 cm; Wt 63.5 kg
[~2023-04-04 22:25] MED LIST changes: +BUPRENORPHINE HC2 MG SL; +CELEBREX200 MG PO; +HYDROXYZINE PAM25 MG PO; +LIDOCAINE35.44 GM TOP; +NEURONTIN100 MG PO; +NEURONTIN300 MG PO; +OMEPRAZOLE40 MG PO; +OXYBUTYNIN CHLO15 MG PO; +TAMSULOSIN HCL0.4 MG PO; +VENLAFAXINE HCL75 MG PO
[2023-04-04 22:56] LABS: BASOPHILS 0.6 % (0-2); EOSINOPHILS 0.2 % (0-6); HEMATOCRIT 47.9 % (35.0-50.0); HEMOGLOBIN 15.8 g/dL (12.0-18.0); MCHC 33.1 g/dl (30-36); MCV 87.8 fl (81-99); MONOCYTES 12.7 % (0-12); NEUTROPHILS 67.5 % (39-80); PLATELET COUNT 197 K/uL (140-440); RBC 5.45 M/ul (4.3-5.7); RDW 16.7 (10.5-15.0)
[2023-04-04 23:11] LABS: ALBUMIN 2.8 g/dL (3.4-5.0); ALBUMIN/GLOBULIN RATIO 0.67 (1.1-2.4); BILIRUBIN, TOTAL 0.5 ng/dL (0.2-1.0); BUN/CREATININE RATIO 11.2 (6.0-28.6); CALCIUM 8.8 mg/dL (8.5-10.1); CREATININE, SERUM 1.16 mg/dL (0.70-1.30)
[2023-04-04 23:26] LABS: INFLUENZA B NAA NEGATIVE (NEGATIVE); RESPIRATORY SYNCYTIAL VIR NAA NEGATIVE (NEGATIVE)
[2023-04-05] MEDS ORDERED: VENTOLIN HFA18 GM INH (00:12)
[2023-04-05] MEDS ORDERED: PAXLOVID 300-11 EAC1 PO (00:12)
[2023-04-05 00:27] LABS: BILIRUBIN, URINE NEGATIVE (negative); BLOOD/HGB, URINE NEGATIVE (Negative); KETONE, URINE SMALL (Negative); LEUK ESTERASE, URINE NEGATIVE (negative); NITRITE, URINE NEGATIVE (negative)
[2023-04-05 00:32] LABS: EPITHELIAL CELLS, URINE SQUAMOUS 1+ /lpf (0-1+)
[2023-04-05 00:33] LABS: BACTERIA, URINE RARE /hpf (negative); CASTS, URINE NONE SEEN \\lpf; CRYSTALS, URINE NONE SEEN (0-1+); RED BLOOD CELLS, URINE 0-1 /hpf (0-5); WHITE BLOOD CELLS, URINE 0-1 /HPF (0-5)
[2023-04-05 00:34] LABS: REFLEX CULTURE, URINE No (No)
[2023-04-05 01:16] VITALS: BP 151/78
== END 2023-04-05 01:13 | disposition home or self-care (01) ==
LOC: ED 22:25
PROVIDERS: Family Medicine
DX: U07.1 COVID-19 (principal); F17.200 Nicotine dependence, unspecified, uncomplicated; J43.9 Emphysema, unspecified; E11.9 Type 2 diabetes mellitus without complications; J45.909 Unspecified asthma, uncomplicated; F43.10 Post-traumatic stress disorder, unspecified; F41.9 Anxiety disorder, unspecified; F32.2 Major depressive disorder, single episode, severe without psychotic features; Z88.8 Allergy status to other drugs, medicaments and biological substances; Z79.899 Other long term (current) drug therapy
CPT/HCPCS: 36415; 71045; 80053; 81001; 82140; 85025; 87502; 96374; 96375; 99284-25; J1100; J1885; U0002

== ENCOUNTER 2023-07-07 21:29 | Emergency (ER) | payer MEDICARE ==
[~2023-07-07] VITALS: Ht 165.1 cm; Wt 68.0 kg
[~2023-07-07 21:29] MED LIST changes: +PAXLOVID 300-11 EAC1 PO
[2023-07-07 21:45] LABS: BASOPHILS 0.5 % (0-2); EOSINOPHILS 1.5 % (0-6); HEMATOCRIT 48.7 % (35.0-50.0); LYMPHOCYTES 12.1 % (24-44); MCH 30.4 (27-36); MCHC 32.9 g/dl (30-36); MCV 92.5 fl (81-99); MONOCYTES 7.6 % (0-12); NEUTROPHILS 78.3 % (39-80); PLATELET COUNT 218 K/uL (140-440); RBC 5.26 M/ul (4.3-5.7); RDW 15.2 (10.5-15.0)
[2023-07-07 21:55] LABS: INR 0.97 (0.80-1.30); PROTIME 12.4 Sec (11.2-14.2)
[2023-07-07 22:01] LABS: ALBUMIN 3.4 g/dL (3.4-5.0); ALBUMIN/GLOBULIN RATIO 0.89 (1.1-2.4); ANION GAP 18.4 (7-21); BILIRUBIN, TOTAL 0.6 ng/dL (0.2-1.0); CALCIUM 9.1 mg/dL (8.5-10.1); CREATININE, SERUM 1.09 mg/dL (0.70-1.30); POTASSIUM 4.4 mmol/L (3.5-5.1); PROTEIN, TOTAL 7.2 g/dL (6.4-8.2)
[2023-07-07 22:42] LABS: BILIRUBIN, URINE NEGATIVE (negative); BLOOD/HGB, URINE NEGATIVE (Negative); KETONE, URINE >=80 (Negative); LEUK ESTERASE, URINE NEGATIVE (negative); NITRITE, URINE NEGATIVE (negative); PH, URINE 7.5 (5-7)
[2023-07-07 22:56] LABS: AMPHETAMINES, URINE NEGATIVE (NEGATIVE); BARBITURATES, URINE NEGATIVE (NEGATIVE); BENZODIAZEPINE, URINE NEGATIVE (NEGATIVE); BUPRENORPHINE, URINE POSITIVE (NEGATIVE); CANNABINOID, URINE POSITIVE (NEGATIVE); COCAINE, URINE NEGATIVE (NEGATIVE); ECSTASY, URINE NEGATIVE (NEGATIVE); FENTANYL, URINE NEGATIVE (NEGATIVE); METHADONE, URINE NEGATIVE (NEGATIVE); OPIATES, URINE NEGATIVE (NEGATIVE); OXYCODONE, URINE NEGATIVE (NEGATIVE); PHENCYCLIDINE, URINE NEGATIVE (NEGATIVE)
[2023-07-07 23:31] VITALS: BP 128/60
--- NOTE | 2023-07-08 22:35 | EKG ---
[facility] [address] [facility] [place] [address] Signed Normal sinus rhythm Normal ECG When compared with ECG of 16-JUN-2023 18:48, Criteria for Septal infarct are no longer present Confirmed by Sinan Anderson MD () on 07/08/2023 10:35:12 PM Electronically Signed By: SINAN ANDERSON MD 07/08/23 2235 PATIENT NAME: NATIVIDAD FERMIN Electrocardiogram DATE OF : 59 PHYSICIAN: SINAN ANDERSON MD REPORT #: [id number] REPORT IS CONFIDENTIAL AND NOT TO BE RELEASED WITHOUT AUTHORIZATION
== END 2023-07-07 23:42 | disposition home or self-care (01) ==
LOC: ED 21:29
PROVIDERS: Family Medicine
DX: R40.4 Transient alteration of awareness (principal); T42.6X5A Adverse effect of other antiepileptic and sedative-hypnotic drugs, initial encounter; T43.215A Adverse effect of selective serotonin and norepinephrine reuptake inhibitors, initial encounter; J43.9 Emphysema, unspecified; E11.9 Type 2 diabetes mellitus without complications; F32.A Depression, unspecified; F43.10 Post-traumatic stress disorder, unspecified; F41.9 Anxiety disorder, unspecified; F17.200 Nicotine dependence, unspecified, uncomplicated; Z88.8 Allergy status to other drugs, medicaments and biological substances; Z79.899 Other long term (current) drug therapy
CPT/HCPCS: 36415; 70450; 71045; 72125; 80053; 80307; 81003; 85025; 85610; 93005; 93010; 99285-25